=== PATIENT | female | born 1940 | race Caucasian/White ===

== ENCOUNTER 2017-10-08 14:23 | Inpatient (IN) | payer OTHER, MEDICARE ==
[2017-10-08] MEDS ORDERED: SALINE 1 500ML.BAG with HEPARIN SODIUM,PORCINE/NS/PF 1,000 UNIT IV ONE (16:24)
[2017-10-08] MEDS ORDERED: HEPARIN SODIUM,PORCINE 5,000 UNIT/ML 1 ML VIAL IV PRN (16:28)
[2017-10-08] MEDS ORDERED: HEPARIN SOD,PORK IN 0.45% NACL 25,000 UNIT in 0.45% NACL 1 500ML.BAG IV SCH (16:30)
--- NOTE | 2017-10-08 16:54 | P.GSCN ---
History of Present Illness Consult date: 10/08/17 Reason for Consult: Triple-vessel coronary artery disease, surgical recommendations. Requesting physician: Marc Cox History of present illness: This is a 77-year-old female patient who follows with a physician in [place] where she spends most of her year. She has a previous medical history of hypertension, hypothyroid, hyperlipidemia which she has managed with diet only, and family history of coronary artery disease. She is here visiting from [place] and has developed increased lower extremity edema over the previous week , chest heaviness and shortness of breath with exertion which does stop at rest. Her chest heaviness does not radiate and she has no other associated symptoms. When she looks back at it, she says this has probably been going on for the last couple of months but has gotten slightly worse over the last week or so. She presented to the emergency room at [facility] for evaluation and treatment. She was found to be hypertensive. Due to her symptoms, she was recommended to undergo heart catheterization which demonstrated triple-vessel coronary artery disease, although heart catheterization films are not available to us at this time. She was transferred to [facility] for evaluation to determine options of stenting versus surgical revascularization. Dr. Min from cardiothoracic surgery was consulted for surgical revascularization recommendations. Review of Systems review of systems was completed and was negative except as noted. - Cardiovascular Reports as per HPI, Reports chest pain, Reports decreased exercise tolerance, Reports dyspnea on exertion, Reports high blood pressure, Reports leg edema Past Medical History Past Medical History: Coronary Artery Disease (CAD), Chest Pain / Angina, Hyperlipidemia, Hypertension, Thyroid Disorder History of Any Multi-Drug Resistant Organisms: None Reported Past Surgical History: Bladder Surgery, Cholecystectomy, Hysterectomy, Tonsillectomy Additional Past Surgical History / Comment(s): bladder suspension Past Anesthesia/Blood Transfusion Reactions: No Reported Reaction Past Psychological History: No Psychological Hx Reported Smoking Status: Never smoker Past Alcohol Use History: None Reported Past Drug Use History: None Reported - Past Family History Father Family Medical History: Coronary Artery Disease (CAD) Medications and Allergies Allergies Allergy/AdvReac Type Severity Reaction Status Date / Time codeine AdvReac Vomiting Verified 10/08/17 16:24 Surgical - Exam - General well developed, well nourished, no distress, no pain - Eyes PERRL, normal ocular movement - ENT no hearing loss - Neck no masses, no bruits, trachea midline - Respiratory Lungs sounds clear bilaterally. Respirations even, nonlabored. Currently on 2 L nasal cannula with oxygen saturation 97%. No chest wall deformities. - Cardiovascular S1, S2 present. Regular rate and rhythm, sinus rhythm on telemetry. Palpable peripheral pulses bilaterally. 1-2+ bilateral lower extremity edema present. No calf pain or tenderness noted. Positive varicosities noted to bilateral lower extremity. - Abdomen Abdomen: soft, non tender, bowel sounds - Genitourinary deferred - Rectum deferred - Integumentary no rash, no growths - Neurologic normal coordination, normal sensation - Psychiatric oriented to time, oriented to person, oriented to place, speech is normal, memory intact Assessment and Plan (1) Hypertension Current Visit: Yes Status: Chronic Code(s): I10 - ESSENTIAL (PRIMARY) HYPERTENSION SNOMED Code(s): 26285110 (2) Hyperlipidemia Current Visit: Yes Status: Chronic Code(s): E78.5 - HYPERLIPIDEMIA, UNSPECIFIED SNOMED Code(s): 98505696 (3) Hypothyroid Current Visit: Yes Status: Chronic Code(s): E03.9 - HYPOTHYROIDISM, UNSPECIFIED SNOMED Code(s): 28076841 (4) Coronary artery disease Current Visit: Yes Status: Chronic Code(s): I25.10 - ATHSCL HEART DISEASE OF [place] CORONARY ARTERY W/O ANG PCTRS SNOMED Code(s): 06911820 (5) Family history of coronary artery disease Current Visit: Yes Status: Chronic Code(s): Z82.49 - FAMILY HX OF ISCHEM HEART DIS AND OTH DIS OF THE CIRC SYS SNOMED Code(s): 073944218 Plan: The patient was seen and examined on arrival from [facility] to the extended stay unit. Chart/diagnostics were reviewed with Dr. Min. The patient is currently in no distress, denies pain, shortness of breath. Preoperative teaching was initiated with the patient. Preoperative testing was ordered. She does state that she does not plan to stay in [place] past October, and she will be driving back to [place]. At this time we would recommend continuing aspirin, and beta rory therapy, adding statin, and trying to obtain better blood pressure control. Our plan is for coronary artery bypass grafting on October 10, pending the outcome of preoperative testing. This was discussed in detail with the patient and family, and they are in agreement. Dr. Cox was contacted by Dr. Min and is in agreement with this plan as well. Thank you Dr. Cox for this consult. We look forward to working to the care of your patient. Time with Patient: Greater than 30
[2017-10-08] MEDS ORDERED: MD COMMUNICATION TO PHARMACY 1 EACH MISC PO ONE ×2 (17:53)
[2017-10-08] MEDS ORDERED: amLODIPine 5 MG TAB PO STA (18:14)
[2017-10-08] MEDS ORDERED: HYDROcodone/APAP 5-325MG 1 EACH TAB PO PRN ×2 (20:14)
[2017-10-08] MEDS ORDERED: ONDANSETRON 4 MG/2 ML VIAL IVP PRN (20:17)
[2017-10-08 20:23] LABS: Appearance,Urine Clear (Clear); Bilirubin,Urine Negative (Negative); Blood,Urine Negative (Negative); Color,Urine Light Yellow; Glucose,Urine (UA) Negative (Negative); Ketones,Urine 1+ (Negative); Leukocyte Esterase,Urine Negative (Negative); Nitrite,Urine Negative (Negative); Protein,Urine Negative (Negative); Specific Gravity,Urine 1.032 (1.001-1.035); Urobilinogen,Urine <2.0 mg/dL (<2.0)
[2017-10-08] MEDS ORDERED: ATROPINE SULFATE 0.1 MG/ML 10ML SYRINGE ONE (20:42)
[2017-10-08] MEDS ORDERED: MUPIROCIN 2% OINT 22 GM TUBE TOPICAL SCH (22:00)
[2017-10-08] MEDS: ATORVASTATIN 40 MG TAB PO SCH (22:21)
[2017-10-08] MEDS: METOPROLOL TARTRATE 25 MG TAB PO SCH (22:21)
[2017-10-09] MEDS: 0.45% NACL 1 500ML.BAG with HEPARIN SOD,PORK IN 0.45% NACL 25,000 UNIT IV SCH ×2 (04:39→21:23)
[2017-10-09] MEDS ORDERED: CHLORHEXIDINE GLUCONATE 15 ML CUP MUCOUS MEM ONE (05:00)
[2017-10-09] MEDS: LEVOTHYROXINE 100 MCG TAB PO SCH (06:21)
[2017-10-09 06:47] LABS: Basophils % (A) 0 %; Eosinophils # (A) 0.1 k/uL (0-0.7); Eosinophils % (A) 1 %; HCT 39.6 % (34.0-46.0); HGB 13.1 gm/dL (11.4-16.0); Lymphocytes # (A) 1.4 k/uL (1.0-4.8); Lymphocytes % (A) 20 %; MCH 29.1 pg (25.0-35.0); MCHC 33.1 g/dL (31.0-37.0); MCV 87.7 fL (80.0-100.0); Mean Platelet Volume 6.5; Monocytes # (A) 0.4 k/uL (0-1.0); Monocytes % (A) 5 %; Neutrophils # (A) 4.9 k/uL (1.3-7.7); Neutrophils % (A) 72 %; Platelet Count 236 k/uL (150-450); RBC 4.52 m/uL (3.80-5.40); RDW 13.7 % (11.5-15.5); WBC 6.9 k/uL (3.8-10.6)
[2017-10-09 06:53] LABS: Partial Thromboplastin Time 31.3 sec (22.0-30.0); Prothrombin Time 10.1 sec (9.0-12.0)
[2017-10-09 07:33] LABS: Albumin 3.6 g/dL (3.5-5.0); Calcium 8.9 mg/dL (8.4-10.2); Magnesium 1.9 mg/dL (1.6-2.3); Potassium 4.1 mmol/L (3.5-5.1); Total Bilirubin 0.6 mg/dL (0.2-1.3)
[2017-10-09] MEDS: METOPROLOL TARTRATE 25 MG TAB PO SCH ×2 (08:29→21:42)
[2017-10-09] MEDS: DILTIAZEM CD 180 MG CAP.ER.24H PO SCH (08:29)
[2017-10-09 08:49] LABS: T4, Free (Free Thyroxine) 1.73 ng/dL (0.78-2.19)
[2017-10-09] MEDS ORDERED: ASPIRIN 325 MG TAB PO SCH (09:00)
--- NOTE | 2017-10-09 10:38 | P.CNPUL ---
History of Present Illness Consult date: 10/09/17 Requesting physician: Laisha Min Reason for consult: other (Ventilator/critical care management) Chief complaint: Chest pain, dyspnea on exertion History of present illness: This is a very pleasant 77-year-old female patient who resides most of the year in [facility] and follows with primary care physician there. She has a history of hyperlipidemia, hypertension, hypothyroidism, family history of coronary artery disease. She is a lifelong nonsmoker. No history of asthma. Has not been seen by a cleaning maid in the past. She had presented to [facility] with complaints of anterior chest wall discomfort and heaviness. She also was noting increased dyspnea on minimal exertion. She was quite hypertensive. Chest x-ray showed no acute pulmonary process. CT angiogram ruled out pulmonary embolism and there was some question of mild fibrotic changes. Serial troponins were negative. EKG did not show any acute ST or T wave abnormalities. There was a noted right bundle branch block. She had undergone cardiac catheterization that revealed triple-vessel disease and she was transferred here for further evaluation and treatment. She may be undergoing coronary artery bypass grafting. She is seen today in consultation on the selective care unit. She is awake and alert in no acute distress. She denies any current shortness of breath, cough or congestion. No chills or night sweats. No chest discomfort or palpitations. No lightheadedness or dizziness. She is maintaining good O2 saturations in the 90s on room air. She' s been afebrile. Hemodynamically stable. White count 6.9. Hemoglobin 13.1. Creatinine 0.76. She is currently on a heparin drip. Review of Systems Constitutional: Denies chills, Denies fever Eyes: denies blurred vision, denies decreased vision, denies pain Ears: deny: decreased hearing Ears, nose, mouth and throat: Denies headache, Denies sore throat Cardiovascular: Reports chest pain, Reports decreased exercise tolerance, Reports dyspnea on exertion, Reports high blood pressure Respiratory: Reports dyspnea Gastrointestinal: Denies abdominal pain, Denies diarrhea, Denies nausea, Denies vomiting Genitourinary: Denies dysuria, Denies hematuria Musculoskeletal: Denies myalgias Integumentary: Denies pruritus, Denies rash Neurological: Denies numbness, Denies weakness Psychiatric: Denies anxiety, Denies depression Endocrine: Denies fatigue, Denies weight change Hematologic/Lymphatic: Reports as per HPI Allergic/Immunologic: Reports as per HPI Past Medical History Past Medical History: Coronary Artery Disease (CAD), Chest Pain / Angina, Hyperlipidemia, Hypertension, Thyroid Disorder Additional Past Medical History / Comment(s): manages cholesterol by diet. hx ulcers 25 years ago(no sx),cataracts, hx fall from horse-sustained art clavical break(sx-has plate/screws) and a fx vertebra -not sure which one.FRUCTOSE INTOLERANCE- CAUSES INSTANT DIARRHEA. , History of Any Multi-Drug Resistant Organisms: None Reported Past Surgical History: Bladder Surgery, Cholecystectomy, Heart Catheterization, Hysterectomy, Tonsillectomy Additional Past Surgical History / Comment(s): bladder suspension, SX TO REPAIR RT CLAVICAL BREAK-HAS PLATE AND SCREWS Past Anesthesia/Blood Transfusion Reactions: No Reported Reaction Smoking Status: Never smoker - Past Family History Father Family Medical History: Coronary Artery Disease (CAD) Mother Family Medical History: Unable to Obtain Additional Family Medical History / Comment(s): PT WAS ADOPTED-ALL SHE KNOWS IS THAT HER MOM AT AGE 99 Medications and Allergies Home Medications Medication Instructions Recorded Confirmed Type Citrucel Tab 1 tab PO DAILY 10/08/17 10/08/17 History Diltiazem HCl [Cartia Xt] 180 mg PO DAILY 10/08/17 10/08/17 History Ipratropium Baldwin [Ipratropium 2 sprays EA NOSTRIL BID PRN 10/08/17 10/08/17 History Baldwin 0.03%] Levothyroxine Sodium [Synthroid] 200 mcg PO DAILY 10/08/17 10/08/17 History Losartan Potassium 100 mg PO DAILY 10/08/17 10/08/17 History Allergies Allergy/AdvReac Type Severity Reaction Status Date / Time codeine AdvReac Vomiting Verified 10/08/17 19:37 Physical Exam Vitals: Vital Signs Temp Pulse Resp BP BP BP Pulse Ox 10/09/17 08:00 79 16 106/62 97 10/09/17 04:00 98.6 F 78 16 144/70 92 L 10/09/17 01:30 68 16 124/58 96 10/09/17 00:30 67 16 127/60 93 L 10/09/17 00:00 67 16 121/60 94 L 07/17/18 23:30 67 18 121/60 94 L 10/08/17 23:00 73 18 125/60 88 L 10/08/17 22:30 75 18 122/61 92 L 10/08/17 22:15 74 18 120/59 91 L 10/08/17 22:00 75 18 124/65 95 10/08/17 21:45 70 18 124/61 94 L 10/08/17 21:33 70 18 141/67 10/08/17 21:28 71 18 145/63 10/08/17 21:24 69 18 132/72 10/08/17 21:17 72 147/76 10/08/17 21:16 68 18 126/74 10/08/17 21:14 75 127/74 10/08/17 21:13 65 18 116/71 10/08/17 21:10 70 155/59 10/08/17 21:00 80 151/70 169/78 10/08/17 20:00 75 18 126/60 92 L 10/08/17 18:45 97.5 F L 75 18 139/77 97 10/08/17 18:30 18 157/76 10/08/17 17:30 18 142/71 10/08/17 17:00 18 192/83 10/08/17 16:30 20 152/92 10/08/17 16:00 20 158/79 10/08/17 15:45 18 165/72 10/08/17 15:30 20 189/84 Intake and Output 10/08/1718 10/09/17 22:59 06:59 14:59 Intake Total 400 120 Output Total 200 Balance 200 120 Intake: IV 400 0.9 400 Oral 120 Output: Urine 200 Other: Voiding Method Bedpan # Voids 3 1 Weight 72 kg 70 kg - Constitutional General appearance: no acute distress - EENT Eyes: EOMI ENT: hearing grossly normal Ears: bilateral: normal - Neck Neck: normal ROM Carotids: bilateral: upstroke normal Thyroid: bilateral: normal size - Respiratory Respiratory: bilateral: CTA - Cardiovascular Rhythm: regular Heart sounds: normal: S1, S2 - Gastrointestinal General gastrointestinal: no organomegaly, soft, no tenderness - Neurologic Neurologic: CNII-XII intact - Musculoskeletal Musculoskeletal: gait normal - Psychiatric Psychiatric: A&O x's 3, appropriate affect, intact judgment & insight Results - Laboratory Findings CBC and BMP: 10/09/17 06:16 10/09/17 06:16 PT/INR, D-dimer PT 10.1 sec (9.0-12.0) 10/09/17 06:16 INR 1.0 (<1.2) 10/09/17 06:16 Abnormal lab findings: Abnormal Labs 10/08/17 10/09/17 10/09/17 20:08 06:16 06:16 APTT 31.3 H Glucose 145 H Total Protein 6.0 L LDL Cholesterol, Calc 107 H TSH 0.069 L Urine Ketones 1+ H - Diagnostic Findings Chest x-ray: report reviewed CT scan - chest: report reviewed Assessment and Plan Assessment: Impression: #1 Coronary artery disease with pending intervention. #2 Hypertension. #3 Hyperlipidemia. #4 Hypothyroidism. Plan: The patient was seen and evaluated by Dr. Aguirre. Chest x-ray and CT angiogram reports reviewed from [facility]. No acute pulmonary process. The patient is a lifelong nonsmoker. FEV1 value pending but expected to be acceptable for surgical intervention. We will continue to follow and make further recommendations based on her clinical status. I, the cosigning physician, performed a history & physical examination of the patient. Lungs sounds are clear. Maintaining good O2 saturations in the 90s on room air. I discussed the assessment and plan of care with my nurse practitioner, Brandy Matamoros. I attest to the above note as dictated by her. Time with Patient: Greater than 30
--- NOTE | 2017-10-09 11:03 | P.PN ---
Subjective Progress Note Date: 10/09/17 Principal diagnosis: Triple-vessel coronary artery disease. Previous medical history of hypertension , hypothyroid, hyperlipidemia, and family history of coronary artery disease. Patient is currently sitting up in bed in no acute distress. Denies chest pain or shortness of breath. Has been able to ambulate in the hallway. Awaiting the rest of her preoperative testing. Objective - Vital Signs Vital signs: Vital Signs Temp 98.6 F 10/09/17 04:00 Pulse 79 10/09/17 08:00 Resp 16 10/09/17 08:00 BP 106/62 10/09/17 08:00 Pulse Ox 97 10/09/17 08:00 Intake & Output 10/08/17 10/09/17 10/09/17 18:59 06:59 18:59 Intake Total 400 120 Output Total 200 Balance -200 400 120 Weight 72 kg 70 kg Intake: IV 400 0.9 400 Oral 120 Output: Urine 200 Other: Voiding Method Bedpan # Voids 3 1 - Constitutional General appearance: Present: cooperative, no acute distress - Respiratory Details: Lungs sounds clear bilaterally. Respirations even, nonlabored. Currently on 2 L nasal cannula with oxygen saturation 97%. - Cardiovascular Details: S1, S2 present. Regular rate and rhythm, sinus rhythm on telemetry. Palpable peripheral pulses bilaterally. 1-2+ bilateral lower extremity edema present. No calf pain or tenderness noted. - Gastrointestinal Gastrointestinal Comment(s): Abdomen soft, nontender, nondistended. Active bowel sounds 4 quadrants. Tolerating diet. - Genitourinary Genitourinary Comment(s): Continues to void clear, yellow urine. - Integumentary Integumentary Comment(s): Skin is warm and dry with evidence of good perfusion. - Neurologic Neurologic: Present: CNII-XII intact - Musculoskeletal Musculoskeletal: Present: gait normal, strength equal bilaterally - Psychiatric Psychiatric: Present: A&O x's 3, appropriate affect, intact judgment & insight - Allied health notes Allied health notes reviewed: nursing - Labs CBC & Chem 7: 10/09/17 06:16 10/09/17 06:16 Labs: Abnormal Lab Results - Last 24 Hours (Table) 10/08/17 10/09/17 10/09/17 Range/Units 20:08 06:16 06:16 APTT 31.3 H (22.0-30.0) sec Glucose 145 H (74-99) mg/dL Total Protein 6.0 L (6.3-8.2) g/dL LDL Cholesterol, Calc 107 H (0-99) mg/dL TSH 0.069 L (0.465-4.680) mIU/L Urine Ketones 1+ H (Negative) Microbiology - Last 24 Hours (Table) 10/08/17 20:08 Urine Culture - Preliminary Urine,Voided Assessment and Plan (1) Hypertension Current Visit: Yes Status: Chronic Code(s): I10 - ESSENTIAL (PRIMARY) HYPERTENSION SNOMED Code(s): 90261489 (2) Hyperlipidemia Current Visit: Yes Status: Chronic Code(s): E78.5 - HYPERLIPIDEMIA, UNSPECIFIED SNOMED Code(s): 91832199 (3) Hypothyroid Current Visit: Yes Status: Chronic Code(s): E03.9 - HYPOTHYROIDISM, UNSPECIFIED SNOMED Code(s): 10307701 (4) Coronary artery disease Current Visit: Yes Status: Chronic Code(s): I25.10 - ATHSCL HEART DISEASE OF [place] CORONARY ARTERY W/O ANG PCTRS SNOMED Code(s): 79669437 (5) Family history of coronary artery disease Current Visit: Yes Status: Chronic Code(s): Z82.49 - FAMILY HX OF ISCHEM HEART DIS AND OTH DIS OF THE CIRC SYS SNOMED Code(s): 102626843 Plan: 1. Continue aspirin, statin, beta rory therapy. 2. Continue heparin drip. Discontinued tomorrow morning phonograph needle tip maker to the OR. 3. Plan is for coronary artery bypass grafting with left internal mammary artery and endoscopic vein harvesting, intraoperative transesophageal echocardiogram, epi-aortic scanning, and intraoperative clinical graft flow measurement tomorrow morning , October 10. 4. Patient should be nothing by mouth after midnight. She should have her aspirin, beta rory, and statin prior to surgery tomorrow morning. 5. STS risk score was calculated and discussed with the patient. 6. Encourage incentive spirometry use. 7. More recommendations to follow. Time with Patient: Greater than 30
--- NOTE | 2017-10-09 12:33 | XR ---
EXAMINATION TYPE: XR chest 2V DATE OF EXAM: 10/09/2017 COMPARISON: NONE HISTORY: Shortness of breath TECHNIQUE: Frontal and lateral views of the chest are obtained. FINDINGS: Scattered senescent parenchymal changes noted. Hyperinflation compatible with COPD. No evidence for infiltrate. No evidence for atelectasis. Heart size is stable. Mediastinal structures are stable and grossly unremarkable. No evidence for hilar prominence. Degenerative changes dorsal spine. IMPRESSION: 1. No evidence for acute pulmonary disease.
[2017-10-09 12:44] LABS: Hemoglobin A1C 5.6 % (4.0-6.0)
[2017-10-09 12:55] LABS: Hepatitis A Antibody IgM Non-Reactive (Non-Reactive); Hepatitis B Core IgM Non-Reactive (Non-Reactive)
--- NOTE | 2017-10-09 15:17 | US ---
EXAMINATION TYPE: US carotid duplex BILAT DATE OF EXAM: 10/09/2017 COMPARISON: NONE CLINICAL HISTORY: preop cardiac surgery. EXAM MEASUREMENTS: RIGHT: Peak Systolic Velocity (PSV) cm/sec ----- Right CCA: 59.8 ----- Right ICA: 79.1 ----- Right ECA: 188.0 ICA/CCA ratio: 1.3 RIGHT: End Diastole cm/sec ----- Right CCA: 13.6 ----- Right ICA: 27.7 ----- Right ECA: 6.8 LEFT: Peak Systolic Velocity (PSV) cm/sec ----- Left CCA: 76.4 ----- Left ICA: 105.0 ----- Left ECA: 106.7 ICA/CCA ratio: 1.4 LEFT: End Diastole cm/sec ----- Left CCA: 18.1 ----- Left ICA: 34.7 ----- Left ECA: 10.1 VERTEBRALS (direction of flow): Right Vertebral: Antegrade Left Vertebral: Antegrade Rhythm: Normal IMPRESSION: Mild atherosclerotic plaque, elevated right ECA velocity, no other significant velocity e levations. Criteria for Assigning % of Stenosis / Diameter reduction (Estimation based on the indirect measurements of the internal carotid artery velocities (ICA PSV). 1. Normal (no stenosis)=ICA PSV < 125 cm/s: ratio < 2.0: ICA EDV<40 cm/s. 2. Less than 50% stenosis=ICA PSV < 125 cm/s: ratio < 2.0: ICA EDV<40 cm/s. 3. 50 to 69% stenosis=ICA PSV of 125 to 230 cm/s: ration 2.0 ? 4.0: ICA EDV 40-100 cm/s. 4. Greater than 70% stenosis to near occlusion= ICA PSV > 230 cm/s: ratio > 4.0: ICA EDV > 100 cm/s. 5. Near occlusion= ICA PSV velocities may be low or undetectable: variable ratio and ICA EDV. 6. Total occlusion=unable to detect flow.
--- NOTE | 2017-10-09 15:22 | P.PN ---
Subjective Progress Note Date: 10/09/17 This is a pleasant 77-year-old female patient who follows her physician in [place] where she spends most of her year. She has a history of hypertension, hypothyroidism, hyperlipidemia and family history of CAD. She has been up here visiting since July and has developed increased lower extremity edema as well as chest heaviness and shortness of breath with exertion. She presented to the emergency room at [facility] for evaluation and treatment. She was found to be quite hypertensive. She underwent cardiac catheterization there which showed triple-vessel coronary artery disease and was subsequently transferred here to [facility] for evaluation to determine options of stenting versus surgical revascularization. She is scheduled to undergo coronary artery bypass grafting tomorrow with Dr. Min. Chest x-ray this morning showed no evidence for acute pulmonary disease. Return evaluation showed a normal CBC, elevated glucose, LDL 107 and TSH of 0.069 with a normal free T4. She is currently on aspirin, Lipitor, IV heparin, levothyroxine 200 g daily, metoprolol tartrate. Upon examination, patient is resting comfortably in bed. She is quite anxious as her is currently still in [place] and may not make it prior to her surgery. Otherwise she's feeling fairly well. Objective - Vital Signs Vital signs: Vital Signs Temp 98.6 F 10/09/17 04:00 Pulse 77 10/09/17 12:00 Resp 16 10/09/17 12:00 BP 144/70 10/09/17 12:00 Pulse Ox 97 10/09/17 12:00 Intake & Output 10/08/17 10/09/17 10/09/17 18:59 06:59 18:59 Intake Total 400 360 Output Total 200 Balance -200 400 360 Weight 72 kg 70 kg Intake: IV 400 0.9 400 Oral 360 Output: Urine 200 Other: Voiding Method Bedpan Bedpan # Voids 3 1 - Exam PHYSICAL EXAMINATION: HEENT: Head is atraumatic, normocephalic. Pupils equal, round. Neck is supple. There is no elevated jugular venous pressure. HEART EXAMINATION: Heart sounds regular, S1 and S2 normal. No murmur or gallop heard. CHEST EXAMINATION: Lungs are clear to auscultation and precussion. No chest wall tenderness is noted on palpation or with deep breathing. ABDOMEN: Soft, nontender. Bowel sounds are heard. No organomegaly noted. EXTREMITIES: 2+ peripheral pulses with no evidence of peripheral edema and no calf tenderness noted. Right femoral puncture site soft without ecchymosis or hematoma.. NEUROLOGIC patient is awake, alert and oriented x3. . - Labs CBC & Chem 7: 10/09/17 06:16 10/09/17 06:16 Labs: Abnormal Lab Results - Last 24 Hours (Table) 10/08/17 10/09/17 10/09/17 Range/Units 20:08 06:16 06:16 APTT 31.3 H (22.0-30.0) sec Glucose 145 H (74-99) mg/dL Total Protein 6.0 L (6.3-8.2) g/dL LDL Cholesterol, Calc 107 H (0-99) mg/dL TSH 0.069 L (0.465-4.680) mIU/L Urine Ketones 1+ H (Negative) Crossmatch 10/09/17 Range/Units 06:16 APTT (22.0-30.0) sec Glucose (74-99) mg/dL Total Protein (6.3-8.2) g/dL LDL Cholesterol, Calc (0-99) mg/dL TSH (0.465-4.680) mIU/L Urine Ketones (Negative) Crossmatch See Detail Microbiology - Last 24 Hours (Table) 10/09/17 04:45 Nasal Screen MRSA/MSSA - Preliminary Nasal Swab 10/08/17 20:08 Urine Culture - Preliminary Urine,Voided Assessment and Plan Assessment: #1 triple-vessel coronary artery disease, awaiting CABG #2 hypertension #3 hypothyroidism Before situational anxiety Plan: From cardiology perspective, medications were reviewed and we will continue the same. We will continue to follow the patient perioperatively and provide further recommendations accordingly. GASTROENTEROLOGY PROFESSOR note has been reviewed, I agree with a documented findings and plan of care. Patient was seen and examined.
[2017-10-09] MEDS: MUPIROCIN 2% OINT 22 GM TUBE TOPICAL SCH ×2 (15:56→21:42)
[2017-10-09] MEDS ORDERED: NOREPINEPHRINE 4 MG in DEXTROSE 5% IN WATER 250 ML IV PRN ×2 (21:00)
[2017-10-09] MEDS: ATORVASTATIN 40 MG TAB PO SCH (21:42)
--- NOTE | 2017-10-09 23:29 | HP ---
HISTORY AND PHYSICAL [age]old white female sent over from [facility] for abnormal coronary angiogram showing multiple-vessel disease. Having bypass surgery tomorrow. She is nervous. I explained to her the procedure, risks, etc. Fourteen-point review of systems negative. PAST MEDICAL HISTORY: 1. Coronary artery disease. 2. Hypertension. 3. Hypothyroidism.. 4. Dyslipidemia. 5. Hypercholesterolemia. 6. History of clavicle break, plate, screws. 7. Fractured vertebrae. 8. Fructose intolerance. 9. Diarrhea. 10.Bladder surgery. 11.Cholecystectomy. 12.Heart catheterization. 13.Hysterectomy. 14.Tonsillectomy. FAMILY HISTORY: Coronary artery disease. HOME MEDICINES: 1. Cardia XL 180 daily. 2. Citrucel 1 daily. 3. Levothyroxine 200 mcg daily. 4. Losartan 100 mg daily. 5. Ipratropium bromide 2 sprays each nostril b.i.d. ALLERGIES: CODEINE. PHYSICAL EXAMINATION: VITAL SIGNS: Temperature 98.6, pulse 67, respiratory rate 16 to 18, blood pressure 106 to 140s over 60s, oxygen 93% to 97% on room air. CARDIOVASCULAR: S1, S2. LUNGS: Transmitted upper airway sounds. GI: Soft, non-tender. HEMATOLOGY: Negative Homans. PSYCH: Fair mood and affect. ASSESSMENT: 1. Hypothyroidism. 2. Coronary artery disease. 3. Pre-bypass. 4. Hypertension. 5. Dyslipidemia. 6. History of clavicle fracture. Prognosis is good. Explained to the patient recommendations. She is stable from medical standpoint for surgery. MMODL / IJN: [id number] /
[2017-10-10] MEDS ORDERED: PAPAVERINE 360 MG in SODIUM CHLORIDE 0.9% 90 ML IV PRN (05:00)
[2017-10-10] MEDS ORDERED: MANNITOL 25% 12.5 GM/50 ML VIAL IV PRN ×2 (05:00)
[2017-10-10] MEDS ORDERED: NITROGLYCERIN-D5W PMX 50 MG in DEXTROSE/WATER 1 250ML.BAG IV PRN (05:00)
[2017-10-10] MEDS ORDERED: DEXTROSE 5% IN WATER 1,000 ML with POTASSIUM CHLORIDE 110 MEQ, MAGNESIUM SULFATE 16 MEQ... IV PRN ×5 (05:00)
[2017-10-10] MEDS ORDERED: MAGNESIUM SULFATE SYG 4.06 MEQ/ML SYRINGE IV PRN (05:00)
[2017-10-10] MEDS ORDERED: METOPROLOL TARTRATE 12.5 MG TAB PO ONE (05:00)
[2017-10-10] MEDS ORDERED: CLEVIDIPINE BUTYRATE 25 MG in EMPTY BAG 1 BAG IV PRN (05:00)
[2017-10-10] MEDS ORDERED: NITROGLYCERIN-D5W PMX 25 MG/250 ML BTL IV PRN (05:00)
[2017-10-10] MEDS ORDERED: CALCIUM CHLORIDE 100 MG/ML 10 ML SYRINGE IVP PRN (05:00)
[2017-10-10] MEDS ORDERED: DEXTROSE 5% IN WATER 1,000 ML with POTASSIUM CHLORIDE 25 MEQ, SODIUM CHLORIDE 2.5MEQ/ML... IV PRN ×6 (05:00)
[2017-10-10] MEDS ORDERED: PHENYLEPHRINE 40 MG in SODIUM CHLORIDE 0.9% 250 ML IV PRN (05:00)
[2017-10-10] MEDS ORDERED: LACTATED RINGERS 1,000 ML IV PRN (05:00)
[2017-10-10] MEDS ORDERED: ALBUMIN HUMAN 25% 50 ML in EMPTY BAG 1 BAG IVPB PRN (05:00)
[2017-10-10] MEDS ORDERED: ALBUMIN HUMAN 5% 500 ML in EMPTY BAG 1 BAG IVPB PRN ×6 (05:00)
[2017-10-10] MEDS ORDERED: HEPARIN SODIUM 1,000 UN/ML (10ML VL) IV PRN (05:00)
[2017-10-10] MEDS ORDERED: TRANEXAMIC ACID 2,000 MG in SODIUM CHLORIDE 0.9% 180 ML IV PRN (05:00)
[2017-10-10] MEDS ORDERED: PROTAMINE SULFATE 10 MG/ML 25 ML VIAL IV PRN (05:00)
[2017-10-10] MEDS ORDERED: HEPARIN SODIUM,PORCINE 5,000 UNIT in SODIUM CHLORIDE 0.9% 500 ML IV PRN (05:00)
[2017-10-10] MEDS ORDERED: ceFAZolin 1,000 MG in SODIUM CHLORIDE 0.9% IRRIGATIO 1,000 ML IRRIGATION PRN (05:00)
[2017-10-10] MEDS ORDERED: INSULIN REGULAR 100 UNIT in SODIUM CHLORIDE 0.9% 100 ML IV PRN (05:00)
[2017-10-10] MEDS ORDERED: ASPIRIN 325 MG TAB PO ONE (05:00)
[2017-10-10] MEDS ORDERED: PROTAMINE SULFATE 250 MG in EMPTY BAG 1 BAG IV PRN (05:00)
[2017-10-10] MEDS ORDERED: PROPOFOL 1,000 MG in EMPTY BAG 1 BAG IV PRN (05:00)
[2017-10-10] MEDS ORDERED: ATORVASTATIN 10 MG TAB PO ONE (05:00)
[2017-10-10] MEDS ORDERED: ceFAZolin 3 GM in SODIUM CHLORIDE 0.9% 30 ML IVPB PRN (05:00)
[2017-10-10] MEDS ORDERED: SODIUM BICARB 8.4% 50 ML SYR (1 MEQ/ML) IV PRN (05:00)
[2017-10-10] MEDS ORDERED: PHENYLEPHRINE-0.9% NACL SYG 1 MG/10 ML SYRINGE IV PRN ×4 (05:00)
[2017-10-10] MEDS ORDERED: IV FLUID CONTINUATION 1,000 ML IV ONE (06:07)
[2017-10-10 06:27] LABS: HCT 42.4 % (34.0-46.0); HGB 13.9 gm/dL (11.4-16.0); MCH 28.9 pg (25.0-35.0); MCHC 32.8 g/dL (31.0-37.0); Mean Platelet Volume 6.5; Platelet Count 261 k/uL (150-450); RBC 4.82 m/uL (3.80-5.40); RDW 13.1 % (11.5-15.5); WBC 7.9 k/uL (3.8-10.6)
[2017-10-10 06:38] LABS: ALT 24 U/L (9-52); AST 22 U/L (14-36); Albumin 4.3 g/dL (3.5-5.0); Alkaline Phosphatase 84 U/L (38-126); Anion Gap 9 mmol/L; Blood Urea Nitrogen 14 mg/dL (7-17); Calcium 9.6 mg/dL (8.4-10.2); Carbon Dioxide 22 mmol/L (22-30); Chloride 112 mmol/L (98-107); Glucose 108 mg/dL (74-99); Potassium 4.4 mmol/L (3.5-5.1); Sodium 143 mmol/L (137-145); Total Bilirubin 0.6 mg/dL (0.2-1.3)
[2017-10-10] MEDS ORDERED: ELECTROLYTE-R (PH 7.4) 1,000 ML IV.SOLN IV ONE (08:11)
[2017-10-10] MEDS ORDERED: ALBUMIN HUMAN 5% 250 ML BOTTLE IVPB ONE (08:11)
[2017-10-10] MEDS ORDERED: VECURONIUM 10 MG VIAL IV ONE (08:11)
[2017-10-10] MEDS ORDERED: LIDOCAINE 2% SYG (PF) 100 MG/5 ML ONE (08:11)
[2017-10-10] MEDS ORDERED: PROTAMINE SULFATE 10 MG/ML 25 ML VIAL IV ONE (08:11)
[2017-10-10] MEDS ORDERED: MAGNESIUM SULFATE 4 MEQ/ML 2 ML VIAL ONE (08:11)
[2017-10-10] MEDS ORDERED: TRANEXAMIC ACID 1,000 MG/10 ML VIAL ONE (08:11)
[2017-10-10] MEDS ORDERED: SODIUM CHLORIDE 0.9% IRRIG 1,000 ML BTL IRRIGATION ONE (08:11)
[2017-10-10] MEDS ORDERED: fentaNYL (PF) 50 MCG/ML 50 ML VIAL ONE (08:11)
[2017-10-10] MEDS ORDERED: ceFAZolin 1,000 MG VIAL ONE (08:11)
[2017-10-10] MEDS ORDERED: PROPOFOL 10 MG/ML 20 ML VIAL IV ONE (08:11)
[2017-10-10] MEDS ORDERED: SODIUM CHLORIDE 0.9% 250 ML BAG ONE (08:11)
[2017-10-10] MEDS ORDERED: MIDAZOLAM 2 MG/2 ML VIAL ONE (08:11)
[2017-10-10] MEDS ORDERED: fentaNYL (PF) 50 MCG/ML 2 ML AMP ONE (08:11)
[2017-10-10] MEDS: ceFAZolin 2,000 MG in SODIUM CHLORIDE 0.9% 30 ML IVPB PRN ×2 (08:15→08:20)
[2017-10-10 08:44] LABS: ABG Base Excess -0.9 mmol/L; ABG HCO3 24 mmol/L (21-25); ABG Oxygen Saturation 99.9 % (94-97); ABG PCO2 41 mmHg (35-45); ABG PH 7.38 (7.35-7.45); ABG PO2 309 mmHg (83-108); ABG Potassium Whole Blood 3.9 mmol/L (3.4-4.5); ABG Sodium Whole Blood 142 mmol/L (135-146); ABG TCO2 25 mmol/L (19-24)
[2017-10-10 11:12] LABS: ABG Base Excess -1.7 mmol/L; ABG HCO3 24 mmol/L (21-25); ABG Oxygen Saturation 98.8 % (94-97); ABG PCO2 46 mmHg (35-45); ABG PH 7.33 (7.35-7.45); ABG PO2 129 mmHg (83-108); ABG Potassium Whole Blood 3.9 mmol/L (3.4-4.5); ABG Sodium Whole Blood 140 mmol/L (135-146); ABG TCO2 26 mmol/L (19-24)
[2017-10-10 11:46] LABS: ABG HCO3 25 mmol/L (21-25); ABG PCO2 35 mmHg (35-45); ABG Potassium Whole Blood 3.9 mmol/L (3.4-4.5); ABG Sodium Whole Blood 137 mmol/L (135-146)
[2017-10-10 12:16] LABS: ABG Base Excess 0.6 mmol/L; ABG HCO3 24 mmol/L (21-25); ABG PCO2 35 mmHg (35-45); ABG PH 7.45 (7.35-7.45); ABG PO2 392 mmHg (83-108); ABG Potassium Whole Blood 4.5 mmol/L (3.4-4.5); ABG Sodium Whole Blood 136 mmol/L (135-146); ABG TCO2 26 mmol/L (19-24)
[2017-10-10 12:48] LABS: ABG Base Excess -0.8 mmol/L; ABG HCO3 24 mmol/L (21-25); ABG PCO2 37 mmHg (35-45); ABG PH 7.42 (7.35-7.45); ABG PO2 370 mmHg (83-108); ABG Potassium Whole Blood 4.5 mmol/L (3.4-4.5); ABG Sodium Whole Blood 136 mmol/L (135-146); ABG TCO2 25 mmol/L (19-24)
[2017-10-10 13:14] LABS: ABG Base Excess -2.4 mmol/L; ABG HCO3 22 mmol/L (21-25); ABG PCO2 37 mmHg (35-45); ABG PH 7.39 (7.35-7.45); ABG Potassium Whole Blood 4.3 mmol/L (3.4-4.5); ABG Sodium Whole Blood 137 mmol/L (135-146); ABG TCO2 23 mmol/L (19-24)
[2017-10-10 14:04] LABS: ABG Base Excess -1.8 mmol/L; ABG HCO3 24 mmol/L (21-25); ABG Oxygen Saturation 98.1 % (94-97); ABG PCO2 44 mmHg (35-45); ABG PH 7.34 (7.35-7.45); ABG PO2 102 mmHg (83-108); ABG Potassium Whole Blood 3.4 mmol/L (3.4-4.5); ABG Sodium Whole Blood 142 mmol/L (135-146); ABG TCO2 25 mmol/L (19-24)
[2017-10-10 14:30] LABS: ABG Base Excess -1.3 mmol/L; ABG HCO3 24 mmol/L (21-25); ABG Oxygen Saturation 99.7 % (94-97); ABG PCO2 40 mmHg (35-45); ABG PH 7.38 (7.35-7.45); ABG PO2 241 mmHg (83-108); ABG Potassium Whole Blood 3.9 mmol/L (3.4-4.5); ABG Sodium Whole Blood 143 mmol/L (135-146); ABG TCO2 25 mmol/L (19-24)
[2017-10-10 14:50] LABS: ABG PCO2 30 mmHg (35-45); ABG PH 7.47 (7.35-7.45); ABG PO2 127 mmHg (83-108)
[2017-10-10 14:51] LABS: ABG Base Excess -0.9 mmol/L; ABG HCO3 22 mmol/L (21-25); ABG Potassium Whole Blood 4.4 mmol/L (3.4-4.5); ABG Sodium Whole Blood 167 mmol/L (135-146); ABG TCO2 23 mmol/L (19-24)
[2017-10-10 14:57] LABS: ABG PH 7.46 (7.35-7.45); ABG PO2 418 mmHg (83-108); ABG TCO2 26 mmol/L (19-24)
[2017-10-10 14:58] LABS: ABG Base Excess 0.9 mmol/L
[2017-10-10 15:01] LABS: ABG PO2 >420 mmHg (83-108)
[2017-10-10 15:30] LABS: Glucose,Whole Blood 113 mg/dL (75-99)
[2017-10-10] MEDS: PROPOFOL 1,000 MG in EMPTY BAG 1 BAG IV SCH ×2 (15:30→16:15)
[2017-10-10] MEDS ORDERED: Phosphorus Replacement Protoco 1 EACH MISC MISCELLANE PRN (15:32)
[2017-10-10] MEDS ORDERED: NITROGLYCERIN-D5W PMX 50 MG in DEXTROSE/WATER 1 250ML.BAG IV SCH (15:32)
[2017-10-10] MEDS ORDERED: DEXTROSE 5% IN WATER 100 ML with AMIODARONE 150 MG IV PRN (15:32)
[2017-10-10] MEDS ORDERED: Magnesium Replacement Protocol 1 EACH MISC MISCELLANE PRN (15:32)
[2017-10-10] MEDS ORDERED: ONDANSETRON 4 MG/2 ML VIAL IVP PRN (15:32)
[2017-10-10] MEDS ORDERED: BENZOCAINE/MENTHOL LOZENG 1 EACH LOZENGE MUCOUS MEM PRN (15:32)
[2017-10-10] MEDS ORDERED: CALCIUM CHLORIDE 1,000 MG in SODIUM CHLORIDE 0.9% 100 ML IV PRN (15:32)
[2017-10-10] MEDS ORDERED: IPRATROPIUM-ALBUTEROL 3 ML NEB INHALATION PRN (15:32)
[2017-10-10] MEDS ORDERED: Potassium Replacement Protocol 1 EACH MISC MISCELLANE PRN (15:32)
[2017-10-10] MEDS: LACTATED RINGERS 1,000 ML IV SCH (15:45)
[2017-10-10 15:49] LABS: ABG Base Excess -0.2 mmol/L; ABG HCO3 26 mmol/L (21-25); ABG Oxygen Saturation 99.8 % (94-97); ABG PCO2 49 mmHg (35-45); ABG PH 7.33 (7.35-7.45); ABG PO2 212 mmHg (83-108); ABG TCO2 27 mmol/L (19-24)
[2017-10-10 15:51] LABS: Ionized Calcium 4.3 mg/dL (4.5-5.3)
[2017-10-10 15:52] LABS: Basophils % (A) 0 %; Eosinophils % (A) 0 %; HCT 20.6 % (34.0-46.0); Lymphocytes # (A) 0.5 k/uL (1.0-4.8); Lymphocytes % (A) 17 %; MCH 29.3 pg (25.0-35.0); MCV 86.3 fL (80.0-100.0); Mean Platelet Volume 7.6; Monocytes # (A) 0.1 k/uL (0-1.0); Monocytes % (A) 5 %; Neutrophils # (A) 2.4 k/uL (1.3-7.7); Neutrophils % (A) 78 %; RBC 2.38 m/uL (3.80-5.40)
--- NOTE | 2017-10-10 15:57 | XR ---
EXAMINATION TYPE: XR chest 1V portable DATE OF EXAM: 10/10/2017 COMPARISON: 10/09/2017 HISTORY: Status post cardiac surgery. TECHNIQUE: Single frontal view of the chest is obtained. FINDINGS: There are new bilateral thoracostomy tubes with no residual pneumothorax identified. New S wan-Thaddeus catheter from a right internal jugular approach has its distal tip in the region of the pulm onary outflow tract, properly placed. Endotracheal tube appears slightly low in position approaching the right mainstem bronchus. Recommendation is for retraction approximately 2 cm. Post CABG changes a re seen of the chest. Enteric tube has its fenestrated portion beyond the gastroesophageal junction, appropriately placed. Mediastinal drain is noted. Epicardial pacing wires also seen. No new focal con solidation or pleural effusion. Unchanged right-sided clavicular fixation plate. Cardiac silhouette i s stable from the prior. IMPRESSION: Newly placed lines and tubes as described above and postsurgical changes with caudal benjamin cement of the endotracheal tube. Recommend retraction of 2 cm.
[2017-10-10 15:59] LABS: Glucose,Whole Blood 92 mg/dL (75-99)
[2017-10-10] MEDS: CLEVIDIPINE BUTYRATE 25 MG in EMPTY BAG 1 BAG IV SCH ×2 (16:00→21:03)
--- NOTE | 2017-10-10 16:01 | P.PN ---
Subjective Progress Note Date: 10/10/17 Principal diagnosis: Coronary artery disease This is a very pleasant 77-year-old female patient who resides most of the year in [facility] and follows with primary care physician there. She has a history of hyperlipidemia, hypertension, hypothyroidism, family history of coronary artery disease. She is a lifelong nonsmoker. No history of asthma. Has not been seen by a director of leadership development in the past. She had presented to [facility] with complaints of anterior chest wall discomfort and heaviness. She also was noting increased dyspnea on minimal exertion. She was quite hypertensive. Chest x-ray showed no acute pulmonary process. CT angiogram ruled out pulmonary embolism and there was some question of mild fibrotic changes. Serial troponins were negative. EKG did not show any acute ST or T wave abnormalities. There was a noted right bundle branch block. She had undergone cardiac catheterization that revealed triple-vessel disease and she was transferred here for further evaluation and treatment. She may be undergoing coronary artery bypass grafting. She is seen today in consultation on the selective care unit. She is awake and alert in no acute distress. She denies any current shortness of breath, cough or congestion. No chills or night sweats. No chest discomfort or palpitations. No lightheadedness or dizziness. She is maintaining good O2 saturations in the 90s on room air. She' s been afebrile. Hemodynamically stable. White count 6.9. Hemoglobin 13.1. Creatinine 0.76. She is currently on a heparin drip. The patient was seen again today 10/10/2017 in the immediate postoperative setting in the intensive care unit. She had undergone a NELSON to the LAD, saphenous vein graft to the OM, saphenous vein graft to the RCA. She is currently intubated and on mechanical ventilator at settings of SIMV of 12, tidal volume 350, 100% FiO2 and a PEEP of 5. Arterial blood gases reveal a P O2 of 212, pCO2 49, pH 7.32. Adjustments will be made. Chest x-ray was reviewed. Right, left, mediastinal chest tubes in place. Currently has a lactated Ringer's at 50 MLS per hour, nitroglycerin drip at 5 mcg/m, propofol at 10 mcg/kg/m, clevidipine at 2 mg per hour. Urine output is adequate. PA pressures 36/20 with a mean of 27. Objective - Vital Signs Vital signs: Vital Signs Temp 98.8 F 10/10/17 06:18 Pulse 83 10/10/17 06:18 Resp 18 10/10/17 06:18 BP 202/91 10/10/17 06:18 Pulse Ox 97 10/10/17 06:18 Intake & Output 10/09/17 10/10/17 10/10/17 18:59 06:59 18:59 Intake Total 360 1300 33 Output Total 2950 Balance 360 1300 -2917 Weight 70.5 kg Intake: IV 700 33 Oral 360 600 Output: Urine 1950 Estimated Blood Loss 1000 Other: Voiding Method Bedpan Toilet # Voids 1 2 - Exam GENERAL EXAM: Intubated, sedated. HEAD: Normocephalic. EYES: Sluggish reaction of pupils, equal size. NOSE: Clear with pink turbinates. THROAT: Oral endotracheal and gastric tube in place. No erythema or exudates. NECK: Right IJ [place]-Thaddeus placed. No masses, no JVD. CHEST: Sternal dressing is dry and intact. Mediastinal, right and left pleural chest tubes are in place. LUNGS: Equal air entry with few scattered rhonchi. CVS: S1 and S2 normal with no audible murmur, regular rhythm. ABDOMEN: Soft. SPINE: No scoliosis or deformity SKIN: No rashes CENTRAL NERVOUS SYSTEM: Sedated. EXTREMITIES: There is no peripheral edema. No clubbing, no cyanosis. Peripheral pulses are intact. - Labs CBC & Chem 7: 10/10/17 05:44 10/10/17 05:44 Labs: Abnormal Lab Results - Last 24 Hours (Table) 10/09/17 10/10/17 10/10/17 Range/Units 06:16 05:44 08:45 ABG pH (7.35-7.45) ABG pCO2 (35-45) mmHg ABG pO2 309 H (83-108) mmHg ABG Total CO2 25 H (19-24) mmol/L ABG O2 Saturation 99.9 H (94-97) % ABG Hematocrit (34.0-46.0) % ABG Sodium (135-146) mmol/L ABG Ionized Calcium (4.5-5.3) mg/dL ABG Glucose 115 H (75-99) mg/dL ABG Lactic Acid (0.5-1.6) mmol/L Hemoglobin (11.4-16.0) gm/dL Chloride 112 H (98-107) mmol/L Glucose 108 H (74-99) mg/dL POC Glucose (mg/dL) (75-99) mg/dL Arterial Blood Glucose 115 H (75-99) mg/dL Crossmatch See Detail 10/10/17 10/10/17 10/10/17 Range/Units 11:12 11:14 12:17 ABG pH 7.47 H 7.33 L (7.35-7.45) ABG pCO2 30 L 46 H (35-45) mmHg ABG pO2 127 H 129 H 392 H (83-108) mmHg ABG Total CO2 26 H 26 H (19-24) mmol/L ABG O2 Saturation 100.0 H 98.8 H 100.0 H (94-97) % ABG Hematocrit 24 L (34.0-46.0) % ABG Sodium 167 H* (135-146) mmol/L ABG Ionized Calcium 4.0 L (4.5-5.3) mg/dL ABG Glucose 133 H 134 H 200 H (75-99) mg/dL ABG Lactic Acid 2.0 H (0.5-1.6) mmol/L Hemoglobin 11.3 L 7.7 L (11.4-16.0) gm/dL Chloride (98-107) mmol/L Glucose (74-99) mg/dL POC Glucose (mg/dL) (75-99) mg/dL Arterial Blood Glucose 133 H 134 H 200 H (75-99) mg/dL Crossmatch 10/10/17 10/10/17 10/10/17 Range/Units 12:49 13:16 14:32 ABG pH 7.34 L (7.35-7.45) ABG pCO2 (35-45) mmHg ABG pO2 370 H >420 H (83-108) mmHg ABG Total CO2 25 H 25 H (19-24) mmol/L ABG O2 Saturation 100.0 H 100.0 H 98.1 H (94-97) % ABG Hematocrit 23 L 22 L 22 L (34.0-46.0) % ABG Sodium (135-146) mmol/L ABG Ionized Calcium 4.0 L 4.2 L 3.8 L (4.5-5.3) mg/dL ABG Glucose 238 H 196 H 159 H (75-99) mg/dL ABG Lactic Acid 2.9 H* 4.2 H* 4.1 H* (0.5-1.6) mmol/L Hemoglobin 7.4 L 7.2 L 7.2 L (11.4-16.0) gm/dL Chloride (98-107) mmol/L Glucose (74-99) mg/dL POC Glucose (mg/dL) (75-99) mg/dL Arterial Blood Glucose 238 H 196 H 159 H (75-99) mg/dL Crossmatch 10/10/17 10/10/17 Range/Units 14:32 15:28 ABG pH (7.35-7.45) ABG pCO2 (35-45) mmHg ABG pO2 241 H (83-108) mmHg ABG Total CO2 25 H (19-24) mmol/L ABG O2 Saturation 99.7 H (94-97) % ABG Hematocrit 21 L (34.0-46.0) % ABG Sodium (135-146) mmol/L ABG Ionized Calcium 3.7 L (4.5-5.3) mg/dL ABG Glucose 130 H (75-99) mg/dL ABG Lactic Acid 3.6 H* (0.5-1.6) mmol/L Hemoglobin 6.8 L* (11.4-16.0) gm/dL Chloride (98-107) mmol/L Glucose (74-99) mg/dL POC Glucose (mg/dL) 113 H (75-99) mg/dL Arterial Blood Glucose 130 H (75-99) mg/dL Crossmatch Microbiology - Last 24 Hours (Table) 10/09/17 04:45 Nasal Screen MRSA/MSSA - Final Nasal Swab 10/08/17 20:08 Urine Culture - Final Urine,Voided Assessment and Plan Assessment: Impression: #1 Coronary artery disease, status post coronary artery bypass grafting utilizing a NELSON to the LAD, saphenous vein grafts to the OM and RCA. Postoperative day #0. #2 Hypertension. #3 Hyperlipidemia. #4 Hypothyroidism. Plan: The patient was seen and evaluated by Dr. Aguirre. Chest x-ray and ABGs were reviewed. Vent adjustments were made. The plan is to extubate within the 6 hour protocol. Continue bronchodilators, antibiotics. Heparin for DVT prophylaxis. Protonix for GI prophylaxis. We will continue to follow and make further recommendations based on her clinical status. Critical care time 38 minutes. I, the cosigning physician, performed a history & physical examination of the patient. Lungs sounds with few scattered rhonchi. Maintaining good O2 saturations in the 90s on 50% FiO2 per mechanical ventilator. I discussed the assessment and plan of care with my nurse practitioner, Brandy Matamoros. I attest to the above note as dictated by her.
[2017-10-10] MEDS: IPRATROPIUM-ALBUTEROL 3 ML NEB INHALATION SCH ×3 (16:03→19:46)
[2017-10-10 16:06] LABS: INR 1.3 (<1.2); Partial Thromboplastin Time 37.4 sec (22.0-30.0); Prothrombin Time 12.1 sec (9.0-12.0)
[2017-10-10 16:29] LABS: ALT 35 U/L (9-52); AST 44 U/L (14-36); Albumin 3.4 g/dL (3.5-5.0); Alkaline Phosphatase 26 U/L (38-126); Anion Gap 10 mmol/L; Blood Urea Nitrogen 9 mg/dL (7-17); Calcium 7.2 mg/dL (8.4-10.2); Carbon Dioxide 25 mmol/L (22-30); Chloride 108 mmol/L (98-107); Glucose 105 mg/dL (74-99); Magnesium 2.3 mg/dL (1.6-2.3); Sodium 143 mmol/L (137-145); Total Bilirubin 0.7 mg/dL (0.2-1.3); Total Protein 4.6 g/dL (6.3-8.2)
[2017-10-10 16:35] LABS: Platelet Count 89 k/uL (150-450)
[2017-10-10 17:51] LABS: Glucose,Whole Blood 183 mg/dL (75-99)
[2017-10-10 18:03] LABS: Basophils % (A) 0 %; Eosinophils % (A) 1 %; HCT 23.9 % (34.0-46.0); HGB 7.9 gm/dL (11.4-16.0); Lymphocytes # (A) 0.7 k/uL (1.0-4.8); Lymphocytes % (A) 14 %; MCHC 33.2 g/dL (31.0-37.0); MCV 87.3 fL (80.0-100.0); Mean Platelet Volume 7.3; Monocytes # (A) 0.3 k/uL (0-1.0); Monocytes % (A) 6 %; Neutrophils # (A) 4.2 k/uL (1.3-7.7); Neutrophils % (A) 78 %; Platelet Count 116 k/uL (150-450); RBC 2.74 m/uL (3.80-5.40); WBC 5.4 k/uL (3.8-10.6)
[2017-10-10] MEDS: LEVOTHYROXINE 100 MCG TAB PO SCH (18:25)
[2017-10-10] MEDS: ceFAZolin IN SWFI 2 GM/20 ML SYRINGE IVP SCH (18:28)
--- NOTE | 2017-10-10 18:28 | OP ---
OPERATIVE REPORT DATE OF THE SURGERY: 10/10/2017. SURGEON: Dr. Laisha Min. ASSISTANTS: Cosme Hughes, nurse practitioner, and ILAN Grayson. PREOPERATIVE DIAGNOSES:: 1. Non ST elevation myocardial infarction. 2. Preserved left ventricle function. 3. Poorly-controlled hypertension. 4. Hyperlipidemia. 5. Obesity. 6. Strong family history of coronary artery disease. POSTOPERATIVE DIAGNOSES:: 1. Non ST elevation myocardial infarction. 2. Preserved left ventricle function. 3. Poorly-controlled hypertension. 4. Hyperlipidemia. 5. Obesity. 6. Strong family history of coronary artery disease. OPERATION:: 1. Triple coronary artery bypass grafting using the left internal mammary artery to the left anterior descending artery, reverse saphenous vein graft from the aorta to the obtuse marginal artery, reverse saphenous vein graft from the aorta to the right coronary artery. 2. Endoscopic harvesting of the left greater saphenous vein. 3. Intraoperative transesophageal echocardiogram and epiaortic scanning. 4. Intraoperative graft flow measurements using the Metaplacestim system. ESTIMATED BLOOD LOSS:: SPECIMEN TAKEN:: INDICATIONS FOR SURGERY: The patient is a 77-year-old lady who is visiting from [place] and who has been complaining of shortness of breath on exertion over the last several weeks that got worse along with some swelling in the leg that prompted her to check in the emergency room at [facility]. She was ruled in for non-ST elevation myocardial infarction and she was found to be severely hypertensive. The patient had a cardiac catheterization that showed triple-vessel disease and was transferred to [facility] for surgical revascularization. The left ventricular function is preserved and there are no significant valvular abnormalities. She had DVT studies that were negative. She had a CTA that ruled out pulmonary embolism. The STS risk was assessed with her. She understood it and agreed to proceed. NARRATIVE:: With the patient in supine position, the right internal jugular Sodus-Thaddeus catheter and right radial arterial line were placed in the preoperative holding area. Subsequently, she was brought to the operating room, where general endotracheal anesthesia was induced uneventfully. Her PA pressure was 40/20 and her index was 3 before induction. She received 2 g of cefazolin intravenously. The Greco catheter was inserted. The chest, abdomen and both lower extremities were prepped and draped using ChloraPrep. Ioban was used to cover the skin. CHIARA showed left ventricular hypertrophy, preserved systolic function and no significant valvular abnormalities. A midline sternotomy was performed and the bone was very thin. No bone wax was used. The left lo-sternum was elevated and the left internal mammary artery was harvested in a somewhat skeletonized fashion. The left pleura was intentionally opened in this process and was drained with a 28-Micronesian chest tube. I made a small breach in the right pleura which was drained with another 28-Micronesian chest tube. Mediastinal fat was transected between 2 ties and epiaortic scanning revealed concentric intimal thickening, but no protruding atheroma in the ascending aorta. Pericardium was opened in an inverted T-fashion and a pericardial cradle was created. Findings included small heart and small aorta proportional to the patient's body habitus. The aorta was soft. There were visible soft plaques scattered in the coronary circulation. After systemic heparinization and after placement of respective pledgeted pursestring, aortic cannulation with a 21-Micronesian soft flow cannula, venous cannulation via the right atrial appendage was performed. Antegrade as well as retrograde cardioplegia catheters were also placed via pledgeted Prolene pursestrings. In the same setting, the left greater saphenous vein was harvested endoscopically from groin to above the ankle level. That took quite a bit of time. The harvest took place after administration of 2500 units of heparin. The leg incisions were closed over a drain. The vein was prepared and appeared to be of good quality in the thigh and also of good quality in the lower leg. The mammary artery was clipped distally and transected, had an excellent pulsatile flow in it and was thin-walled, around 1.5 mm in diameter. Cardiopulmonary bypass was initiated and patient temperature was allowed to drift down to 34 degrees Celsius. We looked at the target and it appeared that there was a mid LAD soft plaque and we decided to open through that plaque to healthy arteries on both sides. The mid obtuse marginal artery and the right coronary artery would be the site for bypass. The aorta was clamped and during aortic clamping, myocardial protection was achieved with initial dose of 600 mL of antegrade cold blood cardioplegia followed by 400 mL of retrograde cold blood cardioplegia. All subsequent doses were given retrograde at 15- minute intervals. The 1st distal anastomosis was in a good segment of reverse saphenous vein graft and the mid aspect of the obtuse marginal artery which was around 1.5 mm in diameter using Prolene 7-0 in continuous fashion. There was adequate flow in the vein which was cut to length and suspended. The 2nd distal anastomosis was between another segment of reverse saphenous vein graft and the right coronary artery which was around 1.5 mm in diameter, thin-walled, using Prolene 7-0 in continuous fashion. There was adequate flow and the vein was cut to length and suspended. The last distal anastomosis was between the left internal mammary artery and the mid aspect of the left anterior descending artery which was opened through a focal plaque which was eccentric using Prolene 7-0 in continuous fashion. I performed all 3 distal anastomoses with a [address] to better define the edge of the arteriotomies. Satisfied with the distal anastomosis, rewarming was started and we punched out 2 buttons of the ascending aorta and the 2 proximal anastomoses with the 2 vein grafts were constructed using Prolene 6-0 in a continuous fashion. De-airing maneuvers were followed. The patient received magnesium lidocaine before unclamping the aorta. She eventually required spontaneous sinus rhythm. Two monopolar atrial pacing wires were affixed to the right atrial pursestrings and 1 bipolar ventricular pacing wire was driven via the anterior aspect of the right ventricle. One 32-Micronesian substernal chest tube was placed. After a period of reperfusion and after a preliminary graft measurement that showed patent graft, we were able to wean off cardiopulmonary bypass with the help of low dose of vasopressors. The CHIARA showed good LV function and relative hypovolemia. This was corrected. The patient eventually came off the vasopressors. At this point, test dose and full dose protamine was given. Decannulation followed. The aortic site as well as the venous cannulation sites were reinforced with Prolene pledgeted. The pericardial fat was approximated over the RV partially and over the aorta and the proximal graft. After ensuring adequate hemostasis and hemodynamic and after correct sponge, instrument and needle count, the sternum was approximated using 5 figure -of- eight [place] cable after interposing fibrillar between the sternal edges. Thorough irrigation with cefazolin followed. The rest of the closure proceeded in layers. Skin glue was applied. The patient received 1 unit of packed red blood cells and 200 mL of Cell Saver blood. She was transferred to the ICU in stable condition on low-dose nitroglycerin with good hemodynamics and normal EKG. MMODL / IJN: [id number] / ABILIO
[2017-10-10] MEDS: ACETAMINOPHEN IV (For NPO) 1,000 MG in EMPTY BAG 1 BAG IVPB SCH (18:36)
[2017-10-10] MEDS: ALBUMIN HUMAN 5% 250 ML in EMPTY BAG 1 BAG IVPB PRN (18:45)
[2017-10-10 19:47] LABS: Glucose,Whole Blood 175 mg/dL (75-99)
[2017-10-10] MEDS: INSULIN REGULAR 100 UNIT in SODIUM CHLORIDE 0.9% 100 ML IV SCH (19:57)
[2017-10-10 20:08] LABS: Glucose,Whole Blood 173 mg/dL (75-99)
[2017-10-10 20:26] LABS: ABG Base Excess -2.2 mmol/L; ABG HCO3 23 mmol/L (21-25); ABG Oxygen Saturation 94.3 % (94-97); ABG PCO2 41 mmHg (35-45); ABG PH 7.36 (7.35-7.45); ABG PO2 67 mmHg (83-108); ABG TCO2 25 mmol/L (19-24)
[2017-10-10 20:54] LABS: Glucose,Whole Blood 168 mg/dL (75-99)
[2017-10-10] MEDS: MORPHINE SULFATE 2 MG/ML SYRINGE IVP PRN (20:56)
[2017-10-10] MEDS: MUPIROCIN 2% OINT 22 GM TUBE NASAL SCH (21:22)
[2017-10-10 21:31] LABS: Basophils % (A) 0 %; Eosinophils % (A) 0 %; HCT 21.7 % (34.0-46.0); HGB 7.2 gm/dL (11.4-16.0); Lymphocytes # (A) 0.4 k/uL (1.0-4.8); Lymphocytes % (A) 6 %; MCH 29.3 pg (25.0-35.0); MCHC 33.4 g/dL (31.0-37.0); MCV 87.8 fL (80.0-100.0); Monocytes # (A) 0.4 k/uL (0-1.0); Monocytes % (A) 5 %; Neutrophils # (A) 6.5 k/uL (1.3-7.7); Neutrophils % (A) 88 %; Platelet Count 146 k/uL (150-450); RBC 2.47 m/uL (3.80-5.40); RDW 13.3 % (11.5-15.5); WBC 7.4 k/uL (3.8-10.6)
[2017-10-10 22:02] LABS: Glucose,Whole Blood 156 mg/dL (75-99)
[2017-10-10] MEDS: HEPARIN SODIUM,PORCINE 5,000 UNIT/ML 1 ML VIAL SQ SCH (22:03)
--- NOTE | 2017-10-10 22:13 | CONS ---
CONSULTATION SUBJECTIVE: A 77-year-old white female for medical management consult, status post CABG, history of hypertension, dyslipidemia, hypothyroidism. Family history of coronary artery disease, status post CABG surgery. He is intubated on mechanical ventilation at this time. NELSON to the LAD, saphenous vein to the OM, saphenous vein to the RCA. Temp 98.8, pulse 83, respiratory rate 16-18, pulse ox 97. CARDIOVASCULAR: S1-S2. LUNGS: Scattered wheeze. HEMATOLOGY: Negative Homans'. PSYCH: Fair mood and affect. NEUROLOGIC: Alert and oriented x3. Resting comfortably on the vent. Abdomen is soft. ASSESSMENT: Status post coronary artery bypass graft, triple-vessel disease. Risk factor modification. Please see further orders, medical consult. MMODL / IJN: [id number] /
[2017-10-10 22:50] LABS: Glucose,Whole Blood 136 mg/dL (75-99)
[2017-10-10] MEDS ORDERED: MORPHINE SULFATE 2 MG/ML SYRINGE ONE (23:00)
[2017-10-10] MEDS ORDERED: ceFAZolin IN SWFI 2 GM/20 ML SYRINGE IVP ONE (23:00)
[2017-10-10] MEDS ORDERED: ONDANSETRON 4 MG/2 ML VIAL ONE (23:00)
[2017-10-10] MEDS ORDERED: ACETAMINOPHEN IV (For NPO) 1,000 MG/100 ML VIAL ONE (23:00)
[2017-10-11 00:05] LABS: Glucose,Whole Blood 140 mg/dL (75-99)
[2017-10-11 01:08] LABS: Glucose,Whole Blood 135 mg/dL (75-99)
[2017-10-11 01:59] LABS: Glucose,Whole Blood 128 mg/dL (75-99)
[2017-10-11 03:02] LABS: Glucose,Whole Blood 130 mg/dL (75-99)
[2017-10-11 04:02] LABS: Glucose,Whole Blood 130 mg/dL (75-99)
[2017-10-11 04:32] LABS: Glucose,Whole Blood 130 mg/dL (75-99)
[2017-10-11] MEDS: ceFAZolin IN SWFI 2 GM/20 ML SYRINGE IVP SCH ×2 (04:45→08:34)
[2017-10-11] MEDS: ACETAMINOPHEN IV (For NPO) 1,000 MG in EMPTY BAG 1 BAG IVPB SCH ×5 (04:45→23:46)
[2017-10-11] MEDS: ALBUMIN HUMAN 5% 250 ML in EMPTY BAG 1 BAG IVPB PRN ×2 (04:49→10:10)
[2017-10-11] MEDS: MORPHINE SULFATE 2 MG/ML SYRINGE IVP PRN ×3 (04:57→09:11)
[2017-10-11 05:08] LABS: Basophils % (A) 0 %; Eosinophils % (A) 1 %; Lymphocytes # (A) 0.5 k/uL (1.0-4.8); Lymphocytes % (A) 8 %; MCH 28.7 pg (25.0-35.0); MCHC 33.1 g/dL (31.0-37.0); MCV 86.9 fL (80.0-100.0); Mean Platelet Volume 7.6; Monocytes # (A) 0.4 k/uL (0-1.0); Monocytes % (A) 7 %; Neutrophils # (A) 4.9 k/uL (1.3-7.7); Neutrophils % (A) 83 %; Platelet Count 140 k/uL (150-450); RBC 2.11 m/uL (3.80-5.40); RDW 13.3 % (11.5-15.5); WBC 5.9 k/uL (3.8-10.6)
[2017-10-11 05:10] LABS: HGB 6.1 gm/dL (11.4-16.0)
[2017-10-11 05:11] LABS: HCT 18.4 % (34.0-46.0)
[2017-10-11 05:13] LABS: INR 1.2 (<1.2); Prothrombin Time 11.3 sec (9.0-12.0)
[2017-10-11 06:13] LABS: Glucose,Whole Blood 127 mg/dL (75-99)
[2017-10-11 06:17] LABS: Ionized Calcium 4.6 mg/dL (4.5-5.3)
[2017-10-11 06:27] LABS: ALT 42 U/L (9-52); AST 49 U/L (14-36); Albumin 3.6 g/dL (3.5-5.0); Alkaline Phosphatase 30 U/L (38-126); Anion Gap 10 mmol/L; Blood Urea Nitrogen 13 mg/dL (7-17); Carbon Dioxide 24 mmol/L (22-30); Chloride 106 mmol/L (98-107); Glucose 111 mg/dL (74-99); Magnesium 2.2 mg/dL (1.6-2.3); Potassium 4.3 mmol/L (3.5-5.1); Sodium 140 mmol/L (137-145); Total Bilirubin 0.6 mg/dL (0.2-1.3); Total Protein 4.8 g/dL (6.3-8.2)
--- NOTE | 2017-10-11 06:44 | XR ---
EXAMINATION TYPE: XR chest 1V portable DATE OF EXAM: 10/11/2017 CLINICAL HISTORY: Post open cardiac surgery progress study. TECHNIQUE: Single AP portable upright view of the chest is obtained. COMPARISON: Chest x-ray from one and 2 days earlier. FINDINGS: There is interval extubation with removal of endotracheal and orogastric tubes. There is s table mediastinal drainage catheter and bilateral chest tubes as well as right internal jugular [place]- Thaddeus catheter. Overlying sternal wires and mediastinal clips remain present. There is persistent cardiomegaly. There is worsening left basilar opacity consistent with infiltrate and/or atelectasis. Right lung remains clear. No large pneumothorax is evident bilaterally. Fusion pl ate over right clavicle is redemonstrated. IMPRESSION: Interval extubation. There is persistent cardiomegaly with developing left basilar atelec tasis and/or infiltrate noted.
[2017-10-11] MEDS: LEVOTHYROXINE 100 MCG TAB PO SCH (07:08)
[2017-10-11] MEDS ORDERED: KETOROLAC 30 MG/ML 1 ML VIAL IVP STA (07:21)
[2017-10-11 07:33] LABS: Glucose,Whole Blood 115 mg/dL (75-99)
[2017-10-11 07:46] LABS: Glucose,Whole Blood 124 mg/dL (75-99)
[2017-10-11] MEDS: IPRATROPIUM-ALBUTEROL 3 ML NEB INHALATION SCH ×4 (07:49→20:33)
--- NOTE | 2017-10-11 07:54 | P.PN ---
Subjective Progress Note Date: 10/11/17 Principal diagnosis: Status post coronary artery bypass grafting This is a pleasant 77-year-old female patient with a past medical history significant for hypertension, dyslipidemia, and significant family history of coronary artery disease, presented to [facility] with a chest discomfort and was ruled in for acute non-ST patient myocardial infarction. She underwent a heart catheterization by Dr. Cox and was found to have severe chewable vessel coronary artery disease. The patient was referred for coronary artery bypass grafting and underwent CABG 3 yesterday. She did receive NELSON to LAD, SVG to OM, and SVG to RCA. This is post open day #1. The patient was extubated yesterday. Overall she has been maintaining normal sinus mechanism. Hemodynamically she is not on any vasopressors but the blood pressure has been marginally low and she is a slightly on the tachycardic side. Also the patient hemoglobin this morning is low at 6.1 and she is in process of having one unit of packed RBC. She is on dual antiplatelet therapy with aspirin and Plavix. She is on metoprolol as well and the dose was increased earlier today because of the tachycardia. Also she is on a statin at 40 mg by mouth daily which I do think we need to increase to 80 mg daily down the line once the liver function test normalized. Objective - Vital Signs Vital signs: Vital Signs Temp 99 F 10/11/17 05:59 Pulse 92 10/11/17 07:00 Resp 14 10/11/17 07:00 BP 96/45 10/11/17 05:59 Pulse Ox 100 10/11/17 07:00 Intake & Output 10/10/17 10/11/17 10/11/17 18:59 06:59 18:59 Intake Total 188.285 999.799 Output Total 4305 1282 Balance -4116.715 -282.201 Weight 77.3 kg Intake: IV 183 927 ACETAMINOPHEN IV (For NPO 100 ) 1,000 mg In Empty Bag 1 bag @ 400 mls/hr IVPB Q6HR PRETTY Rx#:[id number] Albumin Human 5% 250 ml 250 In Empty Bag 1 bag @ 250 mls/hr IVPB Q1HR PRN Rx#: [id number] CO/CI 70 Lactated Ringers 1,000 ml 150 450 @ 50 mls/hr IV .Q20H PRETTY Rx#:[id number] pressure Bag 57 Intake, IV Titration 5.285 72.799 Amount Clevidipine Butyrate 25 43.067 mg In Empty Bag 1 bag @ 1 MG/HR 2 mls/hr IV .Q24H PRETTY Rx#:[id number] Insulin Regular 100 unit 29.732 In Sodium Chloride 0.9% 100 ml @ Per Protocol IV .Q0M PRETTY Rx#:[id number] Propofol 1,000 mg In 5.285 Empty Bag 1 bag @ Titrate IV .Q0M PRETTY Rx#: [id number] Blood Product 0 Rc Pheresis 2 As3 Unit 0 [id number] Output: Chest Tube Drainage 650 552 LEFT PLEURAL 280 290 MEDIASTINAL 210 210 RIGHT PLEURAL 160 52 Drainage 40 Left Calf 40 Urine 2615 730 Estimated Blood Loss 1000 Other: Voiding Method Indwelling Catheter Indwelling Catheter # Voids 0 ABP, PAP, CO, CI - Last Documented Arterial Blood Pressure 111/54 Pulmonary Artery Pressure 35/20 Cardiac Output 3.3 Cardiac Index 1.9 - Constitutional General appearance: Present: no acute distress - Respiratory Respiratory: bilateral: diminished - Cardiovascular Rhythm: regular Heart sounds: normal: S1, S2 - Labs CBC & Chem 7: 10/11/17 04:52 10/11/17 04:52 Labs: Abnormal Lab Results - Last 24 Hours (Table) 10/09/17 10/10/17 10/10/17 Range/Units 06:16 08:45 11:12 WBC (3.8-10.6) k/uL RBC (3.80-5.40) m/uL Hgb (11.4-16.0) gm/dL Hct (34.0-46.0) % Plt Count (150-450) k/uL Lymphocytes # (1.0-4.8) k/uL PT (9.0-12.0) sec INR (<1.2) APTT (22.0-30.0) sec ABG pH 7.47 H (7.35-7.45) ABG pCO2 30 L (35-45) mmHg ABG pO2 309 H 127 H (83-108) mmHg ABG HCO3 (21-25) mmol/L ABG Total CO2 25 H (19-24) mmol/L ABG O2 Saturation 99.9 H 100.0 H (94-97) % ABG Hematocrit (34.0-46.0) % ABG Sodium 167 H* (135-146) mmol/L ABG Ionized Calcium (4.5-5.3) mg/dL ABG Glucose 115 H 133 H (75-99) mg/dL ABG Lactic Acid (0.5-1.6) mmol/L Hemoglobin (11.4-16.0) gm/dL Chloride (98-107) mmol/L Glucose (74-99) mg/dL POC Glucose (mg/dL) (75-99) mg/dL Calcium (8.4-10.2) mg/dL Ionized Calcium Gail (4.5-5.3) mg/dL AST (14-36) U/L Alkaline Phosphatase (38-126) U/L Total Protein (6.3-8.2) g/dL Albumin (3.5-5.0) g/dL Arterial Blood Glucose 115 H 133 H (75-99) mg/dL Crossmatch See Detail 10/10/17 10/10/17 10/10/17 Range/Units 11:14 12:17 12:49 WBC (3.8-10.6) k/uL RBC (3.80-5.40) m/uL Hgb (11.4-16.0) gm/dL Hct (34.0-46.0) % Plt Count (150-450) k/uL Lymphocytes # (1.0-4.8) k/uL PT (9.0-12.0) sec INR (<1.2) APTT (22.0-30.0) sec ABG pH 7.33 L (7.35-7.45) ABG pCO2 46 H (35-45) mmHg ABG pO2 129 H 392 H 370 H (83-108) mmHg ABG HCO3 (21-25) mmol/L ABG Total CO2 26 H 26 H 25 H (19-24) mmol/L ABG O2 Saturation 98.8 H 100.0 H 100.0 H (94-97) % ABG Hematocrit 24 L 23 L (34.0-46.0) % ABG Sodium (135-146) mmol/L ABG Ionized Calcium 4.0 L 4.0 L (4.5-5.3) mg/dL ABG Glucose 134 H 200 H 238 H (75-99) mg/dL ABG Lactic Acid 2.0 H 2.9 H* (0.5-1.6) mmol/L Hemoglobin 11.3 L 7.7 L 7.4 L (11.4-16.0) gm/dL Chloride (98-107) mmol/L Glucose (74-99) mg/dL POC Glucose (mg/dL) (75-99) mg/dL Calcium (8.4-10.2) mg/dL Ionized Calcium Gail (4.5-5.3) mg/dL AST (14-36) U/L Alkaline Phosphatase (38-126) U/L Total Protein (6.3-8.2) g/dL Albumin (3.5-5.0) g/dL Arterial Blood Glucose 134 H 200 H 238 H (75-99) mg/dL Crossmatch 10/10/17 10/10/17 10/10/17 Range/Units 13:16 14:32 14:32 WBC (3.8-10.6) k/uL RBC (3.80-5.40) m/uL Hgb (11.4-16.0) gm/dL Hct (34.0-46.0) % Plt Count (150-450) k/uL Lymphocytes # (1.0-4.8) k/uL PT (9.0-12.0) sec INR (<1.2) APTT (22.0-30.0) sec ABG pH 7.34 L (7.35-7.45) ABG pCO2 (35-45) mmHg ABG pO2 >420 H 241 H (83-108) mmHg ABG HCO3 (21-25) mmol/L ABG Total CO2 25 H 25 H (19-24) mmol/L ABG O2 Saturation 100.0 H 98.1 H 99.7 H (94-97) % ABG Hematocrit 22 L 22 L 21 L (34.0-46.0) % ABG Sodium (135-146) mmol/L ABG Ionized Calcium 4.2 L 3.8 L 3.7 L (4.5-5.3) mg/dL ABG Glucose 196 H 159 H 130 H (75-99) mg/dL ABG Lactic Acid 4.2 H* 4.1 H* 3.6 H* (0.5-1.6) mmol/L Hemoglobin 7.2 L 7.2 L 6.8 L* (11.4-16.0) gm/dL Chloride (98-107) mmol/L Glucose (74-99) mg/dL POC Glucose (mg/dL) (75-99) mg/dL Calcium (8.4-10.2) mg/dL Ionized Calcium Gail (4.5-5.3) mg/dL AST (14-36) U/L Alkaline Phosphatase (38-126) U/L Total Protein (6.3-8.2) g/dL Albumin (3.5-5.0) g/dL Arterial Blood Glucose 196 H 159 H 130 H (75-99) mg/dL Crossmatch 10/10/17 10/10/17 10/10/17 Range/Units 15:28 15:30 15:30 WBC 3.0 L (3.8-10.6) k/uL RBC 2.38 L (3.80-5.40) m/uL Hgb 7.0 L* D (11.4-16.0) gm/dL Hct 20.6 L (34.0-46.0) % Plt Count 89 L D (150-450) k/uL Lymphocytes # 0.5 L (1.0-4.8) k/uL PT (9.0-12.0) sec INR (<1.2) APTT (22.0-30.0) sec ABG pH (7.35-7.45) ABG pCO2 (35-45) mmHg ABG pO2 (83-108) mmHg ABG HCO3 (21-25) mmol/L ABG Total CO2 (19-24) mmol/L ABG O2 Saturation (94-97) % ABG Hematocrit (34.0-46.0) % ABG Sodium (135-146) mmol/L ABG Ionized Calcium (4.5-5.3) mg/dL ABG Glucose (75-99) mg/dL ABG Lactic Acid (0.5-1.6) mmol/L Hemoglobin (11.4-16.0) gm/dL Chloride 108 H (98-107) mmol/L Glucose 105 H (74-99) mg/dL POC Glucose (mg/dL) 113 H (75-99) mg/dL Calcium 7.2 L (8.4-10.2) mg/dL Ionized Calcium Gail 4.3 L (4.5-5.3) mg/dL AST 44 H (14-36) U/L Alkaline Phosphatase 26 L (38-126) U/L Total Protein 4.6 L (6.3-8.2) g/dL Albumin 3.4 L (3.5-5.0) g/dL Arterial Blood Glucose (75-99) mg/dL Crossmatch 10/10/17 10/10/17 10/10/17 Range/Units 15:30 15:46 17:45 WBC (3.8-10.6) k/uL RBC 2.74 L (3.80-5.40) m/uL Hgb 7.9 L (11.4-16.0) gm/dL Hct 23.9 L (34.0-46.0) % Plt Count 116 L (150-450) k/uL Lymphocytes # 0.7 L (1.0-4.8) k/uL PT 12.1 H (9.0-12.0) sec INR 1.3 H (<1.2) APTT 37.4 H (22.0-30.0) sec ABG pH 7.33 L (7.35-7.45) ABG pCO2 49 H (35-45) mmHg ABG pO2 212 H (83-108) mmHg ABG HCO3 26 H (21-25) mmol/L ABG Total CO2 27 H (19-24) mmol/L ABG O2 Saturation 99.8 H (94-97) % ABG Hematocrit (34.0-46.0) % ABG Sodium (135-146) mmol/L ABG Ionized Calcium (4.5-5.3) mg/dL ABG Glucose (75-99) mg/dL ABG Lactic Acid (0.5-1.6) mmol/L Hemoglobin (11.4-16.0) gm/dL Chloride (98-107) mmol/L Glucose (74-99) mg/dL POC Glucose (mg/dL) (75-99) mg/dL Calcium (8.4-10.2) mg/dL Ionized Calcium Gail (4.5-5.3) mg/dL AST (14-36) U/L Alkaline Phosphatase (38-126) U/L Total Protein (6.3-8.2) g/dL Albumin (3.5-5.0) g/dL Arterial Blood Glucose (75-99) mg/dL Crossmatch 10/10/17 10/10/17 10/10/17 Range/Units 17:50 19:46 20:06 WBC (3.8-10.6) k/uL RBC (3.80-5.40) m/uL Hgb (11.4-16.0) gm/dL Hct (34.0-46.0) % Plt Count (150-450) k/uL Lymphocytes # (1.0-4.8) k/uL PT (9.0-12.0) sec INR (<1.2) APTT (22.0-30.0) sec ABG pH (7.35-7.45) ABG pCO2 (35-45) mmHg ABG pO2 (83-108) mmHg ABG HCO3 (21-25) mmol/L ABG Total CO2 (19-24) mmol/L ABG O2 Saturation (94-97) % ABG Hematocrit (34.0-46.0) % ABG Sodium (135-146) mmol/L ABG Ionized Calcium (4.5-5.3) mg/dL ABG Glucose (75-99) mg/dL ABG Lactic Acid (0.5-1.6) mmol/L Hemoglobin (11.4-16.0) gm/dL Chloride (98-107) mmol/L Glucose (74-99) mg/dL POC Glucose (mg/dL) 183 H 175 H 173 H (75-99) mg/dL Calcium (8.4-10.2) mg/dL Ionized Calcium Gail (4.5-5.3) mg/dL AST (14-36) U/L Alkaline Phosphatase (38-126) U/L Total Protein (6.3-8.2) g/dL Albumin (3.5-5.0) g/dL Arterial Blood Glucose (75-99) mg/dL Crossmatch 10/10/17 10/10/17 10/10/17 Range/Units 20:15 20:50 20:51 WBC (3.8-10.6) k/uL RBC 2.47 L (3.80-5.40) m/uL Hgb 7.2 L (11.4-16.0) gm/dL Hct 21.7 L (34.0-46.0) % Plt Count 146 L (150-450) k/uL Lymphocytes # 0.4 L (1.0-4.8) k/uL PT (9.0-12.0) sec INR (<1.2) APTT (22.0-30.0) sec ABG pH (7.35-7.45) ABG pCO2 (35-45) mmHg ABG pO2 67 L (83-108) mmHg ABG HCO3 (21-25) mmol/L ABG Total CO2 25 H (19-24) mmol/L ABG O2 Saturation (94-97) % ABG Hematocrit (34.0-46.0) % ABG Sodium (135-146) mmol/L ABG Ionized Calcium (4.5-5.3) mg/dL ABG Glucose (75-99) mg/dL ABG Lactic Acid (0.5-1.6) mmol/L Hemoglobin (11.4-16.0) gm/dL Chloride (98-107) mmol/L Glucose (74-99) mg/dL POC Glucose (mg/dL) 168 H (75-99) mg/dL Calcium (8.4-10.2) mg/dL Ionized Calcium Gail (4.5-5.3) mg/dL AST (14-36) U/L Alkaline Phosphatase (38-126) U/L Total Protein (6.3-8.2) g/dL Albumin (3.5-5.0) g/dL Arterial Blood Glucose (75-99) mg/dL Crossmatch 10/10/17 10/10/17 10/11/17 Range/Units 21:59 22:48 00:04 WBC (3.8-10.6) k/uL RBC (3.80-5.40) m/uL Hgb (11.4-16.0) gm/dL Hct (34.0-46.0) % Plt Count (150-450) k/uL Lymphocytes # (1.0-4.8) k/uL PT (9.0-12.0) sec INR (<1.2) APTT (22.0-30.0) sec ABG pH (7.35-7.45) ABG pCO2 (35-45) mmHg ABG pO2 (83-108) mmHg ABG HCO3 (21-25) mmol/L ABG Total CO2 (19-24) mmol/L ABG O2 Saturation (94-97) % ABG Hematocrit (34.0-46.0) % ABG Sodium (135-146) mmol/L ABG Ionized Calcium (4.5-5.3) mg/dL ABG Glucose (75-99) mg/dL ABG Lactic Acid (0.5-1.6) mmol/L Hemoglobin (11.4-16.0) gm/dL Chloride (98-107) mmol/L Glucose (74-99) mg/dL POC Glucose (mg/dL) 156 H 136 H 140 H (75-99) mg/dL Calcium (8.4-10.2) mg/dL Ionized Calcium Gail (4.5-5.3) mg/dL AST (14-36) U/L Alkaline Phosphatase (38-126) U/L Total Protein (6.3-8.2) g/dL Albumin (3.5-5.0) g/dL Arterial Blood Glucose (75-99) mg/dL Crossmatch 10/11/17 10/11/17 10/11/17 Range/Units 01:06 01:57 03:00 WBC (3.8-10.6) k/uL RBC (3.80-5.40) m/uL Hgb (11.4-16.0) gm/dL Hct (34.0-46.0) % Plt Count (150-450) k/uL Lymphocytes # (1.0-4.8) k/uL PT (9.0-12.0) sec INR (<1.2) APTT (22.0-30.0) sec ABG pH (7.35-7.45) ABG pCO2 (35-45) mmHg ABG pO2 (83-108) mmHg ABG HCO3 (21-25) mmol/L ABG Total CO2 (19-24) mmol/L ABG O2 Saturation (94-97) % ABG Hematocrit (34.0-46.0) % ABG Sodium (135-146) mmol/L ABG Ionized Calcium (4.5-5.3) mg/dL ABG Glucose (75-99) mg/dL ABG Lactic Acid (0.5-1.6) mmol/L Hemoglobin (11.4-16.0) gm/dL Chloride (98-107) mmol/L Glucose (74-99) mg/dL POC Glucose (mg/dL) 135 H 128 H 130 H (75-99) mg/dL Calcium (8.4-10.2) mg/dL Ionized Calcium Gail (4.5-5.3) mg/dL AST (14-36) U/L Alkaline Phosphatase (38-126) U/L Total Protein (6.3-8.2) g/dL Albumin (3.5-5.0) g/dL Arterial Blood Glucose (75-99) mg/dL Crossmatch 10/11/17 10/11/17 10/11/17 Range/Units 04:01 04:31 04:52 WBC (3.8-10.6) k/uL RBC 2.11 L (3.80-5.40) m/uL Hgb 6.1 L* (11.4-16.0) gm/dL Hct 18.4 L* (34.0-46.0) % Plt Count 140 L (150-450) k/uL Lymphocytes # 0.5 L (1.0-4.8) k/uL PT (9.0-12.0) sec INR (<1.2) APTT (22.0-30.0) sec ABG pH (7.35-7.45) ABG pCO2 (35-45) mmHg ABG pO2 (83-108) mmHg ABG HCO3 (21-25) mmol/L ABG Total CO2 (19-24) mmol/L ABG O2 Saturation (94-97) % ABG Hematocrit (34.0-46.0) % ABG Sodium (135-146) mmol/L ABG Ionized Calcium (4.5-5.3) mg/dL ABG Glucose (75-99) mg/dL ABG Lactic Acid (0.5-1.6) mmol/L Hemoglobin (11.4-16.0) gm/dL Chloride (98-107) mmol/L Glucose (74-99) mg/dL POC Glucose (mg/dL) 130 H 130 H (75-99) mg/dL Calcium (8.4-10.2) mg/dL Ionized Calcium Gail (4.5-5.3) mg/dL AST (14-36) U/L Alkaline Phosphatase (38-126) U/L Total Protein (6.3-8.2) g/dL Albumin (3.5-5.0) g/dL Arterial Blood Glucose (75-99) mg/dL Crossmatch 10/11/17 10/11/17 10/11/17 Range/Units 04:52 04:52 06:11 WBC (3.8-10.6) k/uL RBC (3.80-5.40) m/uL Hgb (11.4-16.0) gm/dL Hct (34.0-46.0) % Plt Count (150-450) k/uL Lymphocytes # (1.0-4.8) k/uL PT (9.0-12.0) sec INR 1.2 H (<1.2) APTT 33.0 H (22.0-30.0) sec ABG pH (7.35-7.45) ABG pCO2 (35-45) mmHg ABG pO2 (83-108) mmHg ABG HCO3 (21-25) mmol/L ABG Total CO2 (19-24) mmol/L ABG O2 Saturation (94-97) % ABG Hematocrit (34.0-46.0) % ABG Sodium (135-146) mmol/L ABG Ionized Calcium (4.5-5.3) mg/dL ABG Glucose (75-99) mg/dL ABG Lactic Acid (0.5-1.6) mmol/L Hemoglobin (11.4-16.0) gm/dL Chloride (98-107) mmol/L Glucose 111 H (74-99) mg/dL POC Glucose (mg/dL) 127 H (75-99) mg/dL Calcium 8.0 L (8.4-10.2) mg/dL Ionized Calcium Gail (4.5-5.3) mg/dL AST 49 H (14-36) U/L Alkaline Phosphatase 30 L (38-126) U/L Total Protein 4.8 L (6.3-8.2) g/dL Albumin (3.5-5.0) g/dL Arterial Blood Glucose (75-99) mg/dL Crossmatch 10/11/17 10/11/17 Range/Units 06:52 07:45 WBC (3.8-10.6) k/uL RBC (3.80-5.40) m/uL Hgb (11.4-16.0) gm/dL Hct (34.0-46.0) % Plt Count (150-450) k/uL Lymphocytes # (1.0-4.8) k/uL PT (9.0-12.0) sec INR (<1.2) APTT (22.0-30.0) sec ABG pH (7.35-7.45) ABG pCO2 (35-45) mmHg ABG pO2 (83-108) mmHg ABG HCO3 (21-25) mmol/L ABG Total CO2 (19-24) mmol/L ABG O2 Saturation (94-97) % ABG Hematocrit (34.0-46.0) % ABG Sodium (135-146) mmol/L ABG Ionized Calcium (4.5-5.3) mg/dL ABG Glucose (75-99) mg/dL ABG Lactic Acid (0.5-1.6) mmol/L Hemoglobin (11.4-16.0) gm/dL Chloride (98-107) mmol/L Glucose (74-99) mg/dL POC Glucose (mg/dL) 115 H 124 H (75-99) mg/dL Calcium (8.4-10.2) mg/dL Ionized Calcium Gail (4.5-5.3) mg/dL AST (14-36) U/L Alkaline Phosphatase (38-126) U/L Total Protein (6.3-8.2) g/dL Albumin (3.5-5.0) g/dL Arterial Blood Glucose (75-99) mg/dL Crossmatch Microbiology - Last 24 Hours (Table) 10/09/17 04:45 Nasal Screen MRSA/MSSA - Final Nasal Swab Assessment and Plan Assessment: Assessment #1 acute coronary event. Acute non-ST patient myocardial infarction #2 severe triple-vessel CAD and status post CABG as described above #3 acute respiratory failure which has resolved #4 blood loss anemia. #5 hypertension #6 dyslipidemia Plan #1 the patient was extubated yesterday #2 hemodynamically she is stable and she is not on any vasopressors #3 she is on maximize medical treatment which included dual antiplatelet therapy , beta rory, and statin #4 we'll consider add LOLY inhibitor to the current medical treatment once her pressure improved #5 continue monitor the hemoglobin along with kidney function, and electrolytes. #6 follow-up with the patient.
[2017-10-11] MEDS ORDERED: FUROSEMIDE 10 MG/ML 2 ML VIAL IV ONE (07:55)
[2017-10-11] MEDS: METOPROLOL TARTRATE 25 MG TAB PO SCH ×2 (08:19→20:49)
[2017-10-11] MEDS ORDERED: METOPROLOL TARTRATE 12.5 MG TAB PO SCH (09:00)
[2017-10-11] MEDS ORDERED: PANTOPRAZOLE 40 MG/10 ML VIAL IVP SCH (09:00)
[2017-10-11 09:01] LABS: Glucose,Whole Blood 128 mg/dL (75-99)
[2017-10-11] MEDS: PANTOPRAZOLE 40 MG TABLET PO SCH (09:06)
[2017-10-11] MEDS: MUPIROCIN 2% OINT 22 GM TUBE NASAL SCH ×2 (09:06→20:49)
[2017-10-11] MEDS: ATORVASTATIN 40 MG TAB PO SCH (09:06)
[2017-10-11] MEDS: HEPARIN SODIUM,PORCINE 5,000 UNIT/ML 1 ML VIAL SQ SCH ×2 (09:21→16:41)
[2017-10-11] MEDS: CLOPIDOGREL 75 MG TAB PO SCH (09:21)
[2017-10-11] MEDS: ASPIRIN 325 MG TAB PO SCH (09:21)
[2017-10-11 09:59] LABS: Glucose,Whole Blood 120 mg/dL (75-99)
[2017-10-11 10:12] LABS: Basophils % (A) 0 %; Eosinophils % (A) 1 %; HCT 21.4 % (34.0-46.0); HGB 7.1 gm/dL (11.4-16.0); Lymphocytes # (A) 0.7 k/uL (1.0-4.8); Lymphocytes % (A) 10 %; MCH 29.1 pg (25.0-35.0); MCHC 33.3 g/dL (31.0-37.0); MCV 87.3 fL (80.0-100.0); Mean Platelet Volume 6.9; Monocytes # (A) 0.3 k/uL (0-1.0); Monocytes % (A) 5 %; Neutrophils # (A) 5.7 k/uL (1.3-7.7); Neutrophils % (A) 83 %; Platelet Count 148 k/uL (150-450); RBC 2.45 m/uL (3.80-5.40); RDW 13.8 % (11.5-15.5); WBC 6.8 k/uL (3.8-10.6)
[2017-10-11 11:18] LABS: Glucose,Whole Blood 99 mg/dL (75-99)
[2017-10-11 12:06] LABS: Glucose,Whole Blood 95 mg/dL (75-99)
[2017-10-11] MEDS: METOCLOPRAMIDE 5 MG/ML 2 ML VIAL IVP PRN (12:18)
[2017-10-11] MEDS: KETOROLAC 30 MG/ML 1 ML VIAL IVP SCH ×2 (12:18→17:56)
[2017-10-11] MEDS: FERROUS SULFATE 325 MG TAB PO SCH (12:19)
[2017-10-11] MEDS: ASCORBIC ACID 500 MG TAB PO SCH (12:19)
[2017-10-11] MEDS: LACTATED RINGERS 1,000 ML IV SCH (12:19)
[2017-10-11 13:25] VITALS: BMI 32.1
--- NOTE | 2017-10-11 13:26 | P.PN ---
Subjective Progress Note Date: 10/11/17 Principal diagnosis: Symptomatic multivessel coronary artery disease, preserved left ventricular function, poorly controlled hypertension, hyperlipidemia, hypothyroid, obesity, and a strong family history of coronary artery disease. POD #1 triple coronary artery bypass grafting using the left internal mammary artery to the left anterior descending coronary artery, reverse greater saphenous vein graft from the aorta to the obtuse marginal coronary artery, reverse greater saphenous vein graft from the aorta to the right coronary artery. Endoscopic harvesting of the left greater saphenous vein. Intraoperative transesophageal echocardiogram and epi-aortic scanning. Intraoperative graft flow measurements using the [employer] system. Patient is sitting up to the bedside chair. She is in no acute distress. Complaining of pain 10 out of 10 on the pain scale to her chest tube insertion sites. Denies any complaints of shortness of breath. She is alert and oriented 3. She is achieving 500 mL on her incentive spirometry. Postoperative normocytic, normochromic anemia, an expected outcome of surgery secondary to hemodilution and bypass pump use. Objective - Vital Signs Vital signs: Vital Signs Temp 99.1 F 10/11/17 08:00 Pulse 93 10/11/17 09:00 Resp 14 10/11/17 09:00 BP 116/57 10/11/17 07:51 Pulse Ox 99 10/11/17 09:00 Intake & Output 10/10/17 10/11/17 10/11/17 18:59 06:59 18:59 Intake Total 188.285 999.799 461.121 Output Total 4305 1282 205 Balance -4116.715 -282.201 256.121 Weight 77.3 kg Intake: IV 183 927 148 ACETAMINOPHEN IV (For NPO 100 ) 1,000 mg In Empty Bag 1 bag @ 400 mls/hr IVPB Q6HR PRETTY Rx#:[id number] Albumin Human 5% 250 ml 250 In Empty Bag 1 bag @ 250 mls/hr IVPB Q1HR PRN Rx#: [id number] CO/CI 70 60 Lactated Ringers 1,000 ml 150 450 70 @ 20 mls/hr IV .Q24H PRETTY Rx#:[id number] pressure Bag 57 18 Intake, IV Titration 5.285 72.799 3.121 Amount Clevidipine Butyrate 25 43.067 mg In Empty Bag 1 bag @ 1 MG/HR 2 mls/hr IV .Q24H PRETTY Rx#:[id number] Insulin Regular 100 unit 29.732 3.121 In Sodium Chloride 0.9% 100 ml @ Per Protocol IV .Q0M PRETTY Rx#:[id number] Propofol 1,000 mg In 5.285 Empty Bag 1 bag @ Titrate IV .Q0M PRETTY Rx#: [id number] Blood Product 0 310 Rc Pheresis 2 As3 Unit 0 310 [id number] Output: Chest Tube Drainage 650 552 90 LEFT PLEURAL 280 290 30 MEDIASTINAL 210 210 40 RIGHT PLEURAL 160 52 20 Drainage 40 Left Calf 40 Urine 2615 730 115 Estimated Blood Loss 1000 Other: Voiding Method Indwelling Catheter Indwelling Catheter Indwelling Catheter # Voids 0 ABP, PAP, CO, CI - Last Documented Arterial Blood Pressure 119/58 Pulmonary Artery Pressure 35/22 Cardiac Output 3.5 Cardiac Index 2.1 - Constitutional General appearance: Present: cooperative, no acute distress, obese - Respiratory Details: Lung sounds are essentially clear throughout, diminished bilateral bases. Respirations are symmetrical and nonlabored. Oxygen saturation are 96% on 2 L nasal cannula. She is achieving 500 mL on her incentive spirometry. Mediastinal, left and right pleural chest tubes in place to low continuous wall suction -20 cm H2O. No air leak is present. Draining thin serosanguineous drainage. Left pleural chest tube drained 220 mL in the last 8 hours, 800 mL since surgery. Mediastinal chest tube drained 50 mL in the last 8 hours, 450 mL since surgery. Right pleural chest tube drained 90 mL in the last 8 hours, 280 mL since surgery. - Cardiovascular Details: Regular rhythm and rate. S1 and S2 present, negative for S3, gallop or murmur. Sternum is stable. Bedside telemetry showing normal sinus rhythm heart rate 93. Atrial and ventricular epicardial pacemaker wires intact and connected to bedside backup generator. Right IJ cordis and [place]-Thaddeus catheter in place and functioning. Current cardiac output 3.3, cardiac index 1.9, PA pressures 36/21 , CVP 20 mmHg. +1 edema to her bilateral lower extremities. Knee-high MARILIN hose and sequential compression devices in place to bilateral lower extremities. - Gastrointestinal Gastrointestinal Comment(s): Abdomen is soft, nontender and nondistended. Hypoactive bowel sounds all 4 abdominal quadrants. Tolerating oral intake. Passing flatus. - Genitourinary Genitourinary Comment(s): Greco catheter for accurate I&O. Greco draining clear yellow urine. Marginal urine output in the last 8 hours 200 mL. - Integumentary Integumentary Comment(s): Skin is warm and dry. No clubbing or cyanosis present. Midline sternal incision clean and dry and approximated. No drainage or redness present. Left leg EVH site clean dry and approximated. No drainage or redness present. Ecchymotic area which is soft touch to her left medial thigh. MIGUEL ÁNGEL drain in place draining thin serosanguineous drainage. 40 mL output since surgery. - Neurologic Neurologic Comment(s): No focal deficits. Neurologic: Present: CNII-XII intact - Musculoskeletal Musculoskeletal: Present: gait normal, generalized weakness, strength equal bilaterally - Psychiatric Psychiatric: Present: A&O x's 3, appropriate affect, intact judgment & insight - Labs CBC & Chem 7: 10/11/17 10:00 10/11/17 04:52 Labs: Abnormal Lab Results - Last 24 Hours (Table) 10/09/17 10/10/17 10/10/17 Range/Units 06:16 08:45 11:12 WBC (3.8-10.6) k/uL RBC (3.80-5.40) m/uL Hgb (11.4-16.0) gm/dL Hct (34.0-46.0) % Plt Count (150-450) k/uL Lymphocytes # (1.0-4.8) k/uL PT (9.0-12.0) sec INR (<1.2) APTT (22.0-30.0) sec ABG pH 7.47 H (7.35-7.45) ABG pCO2 30 L (35-45) mmHg ABG pO2 309 H 127 H (83-108) mmHg ABG HCO3 (21-25) mmol/L ABG Total CO2 25 H (19-24) mmol/L ABG O2 Saturation 99.9 H 100.0 H (94-97) % ABG Hematocrit (34.0-46.0) % ABG Sodium 167 H* (135-146) mmol/L ABG Ionized Calcium (4.5-5.3) mg/dL ABG Glucose 115 H 133 H (75-99) mg/dL ABG Lactic Acid (0.5-1.6) mmol/L Hemoglobin (11.4-16.0) gm/dL Chloride (98-107) mmol/L Glucose (74-99) mg/dL POC Glucose (mg/dL) (75-99) mg/dL Calcium (8.4-10.2) mg/dL Ionized Calcium Gail (4.5-5.3) mg/dL AST (14-36) U/L Alkaline Phosphatase (38-126) U/L Total Protein (6.3-8.2) g/dL Albumin (3.5-5.0) g/dL Arterial Blood Glucose 115 H 133 H (75-99) mg/dL Crossmatch See Detail 10/10/17 10/10/17 10/10/17 Range/Units 11:14 12:17 12:49 WBC (3.8-10.6) k/uL RBC (3.80-5.40) m/uL Hgb (11.4-16.0) gm/dL Hct (34.0-46.0) % Plt Count (150-450) k/uL Lymphocytes # (1.0-4.8) k/uL PT (9.0-12.0) sec INR (<1.2) APTT (22.0-30.0) sec ABG pH 7.33 L (7.35-7.45) ABG pCO2 46 H (35-45) mmHg ABG pO2 129 H 392 H 370 H (83-108) mmHg ABG HCO3 (21-25) mmol/L ABG Total CO2 26 H 26 H 25 H (19-24) mmol/L ABG O2 Saturation 98.8 H 100.0 H 100.0 H (94-97) % ABG Hematocrit 24 L 23 L (34.0-46.0) % ABG Sodium (135-146) mmol/L ABG Ionized Calcium 4.0 L 4.0 L (4.5-5.3) mg/dL ABG Glucose 134 H 200 H 238 H (75-99) mg/dL ABG Lactic Acid 2.0 H 2.9 H* (0.5-1.6) mmol/L Hemoglobin 11.3 L 7.7 L 7.4 L (11.4-16.0) gm/dL Chloride (98-107) mmol/L Glucose (74-99) mg/dL POC Glucose (mg/dL) (75-99) mg/dL Calcium (8.4-10.2) mg/dL Ionized Calcium Gail (4.5-5.3) mg/dL AST (14-36) U/L Alkaline Phosphatase (38-126) U/L Total Protein (6.3-8.2) g/dL Albumin (3.5-5.0) g/dL Arterial Blood Glucose 134 H 200 H 238 H (75-99) mg/dL Crossmatch 10/10/17 10/10/17 10/10/17 Range/Units 13:16 14:32 14:32 WBC (3.8-10.6) k/uL RBC (3.80-5.40) m/uL Hgb (11.4-16.0) gm/dL Hct (34.0-46.0) % Plt Count (150-450) k/uL Lymphocytes # (1.0-4.8) k/uL PT (9.0-12.0) sec INR (<1.2) APTT (22.0-30.0) sec ABG pH 7.34 L (7.35-7.45) ABG pCO2 (35-45) mmHg ABG pO2 >420 H 241 H (83-108) mmHg ABG HCO3 (21-25) mmol/L ABG Total CO2 25 H 25 H (19-24) mmol/L ABG O2 Saturation 100.0 H 98.1 H 99.7 H (94-97) % ABG Hematocrit 22 L 22 L 21 L (34.0-46.0) % ABG Sodium (135-146) mmol/L ABG Ionized Calcium 4.2 L 3.8 L 3.7 L (4.5-5.3) mg/dL ABG Glucose 196 H 159 H 130 H (75-99) mg/dL ABG Lactic Acid 4.2 H* 4.1 H* 3.6 H* (0.5-1.6) mmol/L Hemoglobin 7.2 L 7.2 L 6.8 L* (11.4-16.0) gm/dL Chloride (98-107) mmol/L Glucose (74-99) mg/dL POC Glucose (mg/dL) (75-99) mg/dL Calcium (8.4-10.2) mg/dL Ionized Calcium Gail (4.5-5.3) mg/dL AST (14-36) U/L Alkaline Phosphatase (38-126) U/L Total Protein (6.3-8.2) g/dL Albumin (3.5-5.0) g/dL Arterial Blood Glucose 196 H 159 H 130 H (75-99) mg/dL Crossmatch 10/10/17 10/10/17 10/10/17 Range/Units 15:28 15:30 15:30 WBC 3.0 L (3.8-10.6) k/uL RBC 2.38 L (3.80-5.40) m/uL Hgb 7.0 L* D (11.4-16.0) gm/dL Hct 20.6 L (34.0-46.0) % Plt Count 89 L D (150-450) k/uL Lymphocytes # 0.5 L (1.0-4.8) k/uL PT (9.0-12.0) sec INR (<1.2) APTT (22.0-30.0) sec ABG pH (7.35-7.45) ABG pCO2 (35-45) mmHg ABG pO2 (83-108) mmHg ABG HCO3 (21-25) mmol/L ABG Total CO2 (19-24) mmol/L ABG O2 Saturation (94-97) % ABG Hematocrit (34.0-46.0) % ABG Sodium (135-146) mmol/L ABG Ionized Calcium (4.5-5.3) mg/dL ABG Glucose (75-99) mg/dL ABG Lactic Acid (0.5-1.6) mmol/L Hemoglobin (11.4-16.0) gm/dL Chloride 108 H (98-107) mmol/L Glucose 105 H (74-99) mg/dL POC Glucose (mg/dL) 113 H (75-99) mg/dL Calcium 7.2 L (8.4-10.2) mg/dL Ionized Calcium Gail 4.3 L (4.5-5.3) mg/dL AST 44 H (14-36) U/L Alkaline Phosphatase 26 L (38-126) U/L Total Protein 4.6 L (6.3-8.2) g/dL Albumin 3.4 L (3.5-5.0) g/dL Arterial Blood Glucose (75-99) mg/dL Crossmatch 10/10/17 10/10/17 10/10/17 Range/Units 15:30 15:46 17:45 WBC (3.8-10.6) k/uL RBC 2.74 L (3.80-5.40) m/uL Hgb 7.9 L (11.4-16.0) gm/dL Hct 23.9 L (34.0-46.0) % Plt Count 116 L (150-450) k/uL Lymphocytes # 0.7 L (1.0-4.8) k/uL PT 12.1 H (9.0-12.0) sec INR 1.3 H (<1.2) APTT 37.4 H (22.0-30.0) sec ABG pH 7.33 L (7.35-7.45) ABG pCO2 49 H (35-45) mmHg ABG pO2 212 H (83-108) mmHg ABG HCO3 26 H (21-25) mmol/L ABG Total CO2 27 H (19-24) mmol/L ABG O2 Saturation 99.8 H (94-97) % ABG Hematocrit (34.0-46.0) % ABG Sodium (135-146) mmol/L ABG Ionized Calcium (4.5-5.3) mg/dL ABG Glucose (75-99) mg/dL ABG Lactic Acid (0.5-1.6) mmol/L Hemoglobin (11.4-16.0) gm/dL Chloride (98-107) mmol/L Glucose (74-99) mg/dL POC Glucose (mg/dL) (75-99) mg/dL Calcium (8.4-10.2) mg/dL Ionized Calcium Gail (4.5-5.3) mg/dL AST (14-36) U/L Alkaline Phosphatase (38-126) U/L Total Protein (6.3-8.2) g/dL Albumin (3.5-5.0) g/dL Arterial Blood Glucose (75-99) mg/dL Crossmatch 10/10/17 10/10/1718 Range/Units 17:50 19:46 20:06 WBC (3.8-10.6) k/uL RBC (3.80-5.40) m/uL Hgb (11.4-16.0) gm/dL Hct (34.0-46.0) % Plt Count (150-450) k/uL Lymphocytes # (1.0-4.8) k/uL PT (9.0-12.0) sec INR (<1.2) APTT (22.0-30.0) sec ABG pH (7.35-7.45) ABG pCO2 (35-45) mmHg ABG pO2 (83-108) mmHg ABG HCO3 (21-25) mmol/L ABG Total CO2 (19-24) mmol/L ABG O2 Saturation (94-97) % ABG Hematocrit (34.0-46.0) % ABG Sodium (135-146) mmol/L ABG Ionized Calcium (4.5-5.3) mg/dL ABG Glucose (75-99) mg/dL ABG Lactic Acid (0.5-1.6) mmol/L Hemoglobin (11.4-16.0) gm/dL Chloride (98-107) mmol/L Glucose (74-99) mg/dL POC Glucose (mg/dL) 183 H 175 H 173 H (75-99) mg/dL Calcium (8.4-10.2) mg/dL Ionized Calcium Gail (4.5-5.3) mg/dL AST (14-36) U/L Alkaline Phosphatase (38-126) U/L Total Protein (6.3-8.2) g/dL Albumin (3.5-5.0) g/dL Arterial Blood Glucose (75-99) mg/dL Crossmatch 10/10/17 10/10/17 10/10/17 Range/Units 20:15 20:50 20:51 WBC (3.8-10.6) k/uL RBC 2.47 L (3.80-5.40) m/uL Hgb 7.2 L (11.4-16.0) gm/dL Hct 21.7 L (34.0-46.0) % Plt Count 146 L (150-450) k/uL Lymphocytes # 0.4 L (1.0-4.8) k/uL PT (9.0-12.0) sec INR (<1.2) APTT (22.0-30.0) sec ABG pH (7.35-7.45) ABG pCO2 (35-45) mmHg ABG pO2 67 L (83-108) mmHg ABG HCO3 (21-25) mmol/L ABG Total CO2 25 H (19-24) mmol/L ABG O2 Saturation (94-97) % ABG Hematocrit (34.0-46.0) % ABG Sodium (135-146) mmol/L ABG Ionized Calcium (4.5-5.3) mg/dL ABG Glucose (75-99) mg/dL ABG Lactic Acid (0.5-1.6) mmol/L Hemoglobin (11.4-16.0) gm/dL Chloride (98-107) mmol/L Glucose (74-99) mg/dL POC Glucose (mg/dL) 168 H (75-99) mg/dL Calcium (8.4-10.2) mg/dL Ionized Calcium Gail (4.5-5.3) mg/dL AST (14-36) U/L Alkaline Phosphatase (38-126) U/L Total Protein (6.3-8.2) g/dL Albumin (3.5-5.0) g/dL Arterial Blood Glucose (75-99) mg/dL Crossmatch 10/10/17 10/10/17 10/11/17 Range/Units 21:59 22:48 00:04 WBC (3.8-10.6) k/uL RBC (3.80-5.40) m/uL Hgb (11.4-16.0) gm/dL Hct (34.0-46.0) % Plt Count (150-450) k/uL Lymphocytes # (1.0-4.8) k/uL PT (9.0-12.0) sec INR (<1.2) APTT (22.0-30.0) sec ABG pH (7.35-7.45) ABG pCO2 (35-45) mmHg ABG pO2 (83-108) mmHg ABG HCO3 (21-25) mmol/L ABG Total CO2 (19-24) mmol/L ABG O2 Saturation (94-97) % ABG Hematocrit (34.0-46.0) % ABG Sodium (135-146) mmol/L ABG Ionized Calcium (4.5-5.3) mg/dL ABG Glucose (75-99) mg/dL ABG Lactic Acid (0.5-1.6) mmol/L Hemoglobin (11.4-16.0) gm/dL Chloride (98-107) mmol/L Glucose (74-99) mg/dL POC Glucose (mg/dL) 156 H 136 H 140 H (75-99) mg/dL Calcium (8.4-10.2) mg/dL Ionized Calcium Gail (4.5-5.3) mg/dL AST (14-36) U/L Alkaline Phosphatase (38-126) U/L Total Protein (6.3-8.2) g/dL Albumin (3.5-5.0) g/dL Arterial Blood Glucose (75-99) mg/dL Crossmatch 10/11/17 10/11/17 10/11/17 Range/Units 01:06 01:57 03:00 WBC (3.8-10.6) k/uL RBC (3.80-5.40) m/uL Hgb (11.4-16.0) gm/dL Hct (34.0-46.0) % Plt Count (150-450) k/uL Lymphocytes # (1.0-4.8) k/uL PT (9.0-12.0) sec INR (<1.2) APTT (22.0-30.0) sec ABG pH (7.35-7.45) ABG pCO2 (35-45) mmHg ABG pO2 (83-108) mmHg ABG HCO3 (21-25) mmol/L ABG Total CO2 (19-24) mmol/L ABG O2 Saturation (94-97) % ABG Hematocrit (34.0-46.0) % ABG Sodium (135-146) mmol/L ABG Ionized Calcium (4.5-5.3) mg/dL ABG Glucose (75-99) mg/dL ABG Lactic Acid (0.5-1.6) mmol/L Hemoglobin (11.4-16.0) gm/dL Chloride (98-107) mmol/L Glucose (74-99) mg/dL POC Glucose (mg/dL) 135 H 128 H 130 H (75-99) mg/dL Calcium (8.4-10.2) mg/dL Ionized Calcium Gail (4.5-5.3) mg/dL AST (14-36) U/L Alkaline Phosphatase (38-126) U/L Total Protein (6.3-8.2) g/dL Albumin (3.5-5.0) g/dL Arterial Blood Glucose (75-99) mg/dL Crossmatch 10/11/17 10/11/17 10/11/17 Range/Units 04:01 04:31 04:52 WBC (3.8-10.6) k/uL RBC 2.11 L (3.80-5.40) m/uL Hgb 6.1 L* (11.4-16.0) gm/dL Hct 18.4 L* (34.0-46.0) % Plt Count 140 L (150-450) k/uL Lymphocytes # 0.5 L (1.0-4.8) k/uL PT (9.0-12.0) sec INR (<1.2) APTT (22.0-30.0) sec ABG pH (7.35-7.45) ABG pCO2 (35-45) mmHg ABG pO2 (83-108) mmHg ABG HCO3 (21-25) mmol/L ABG Total CO2 (19-24) mmol/L ABG O2 Saturation (94-97) % ABG Hematocrit (34.0-46.0) % ABG Sodium (135-146) mmol/L ABG Ionized Calcium (4.5-5.3) mg/dL ABG Glucose (75-99) mg/dL ABG Lactic Acid (0.5-1.6) mmol/L Hemoglobin (11.4-16.0) gm/dL Chloride (98-107) mmol/L Glucose (74-99) mg/dL POC Glucose (mg/dL) 130 H 130 H (75-99) mg/dL Calcium (8.4-10.2) mg/dL Ionized Calcium Gail (4.5-5.3) mg/dL AST (14-36) U/L Alkaline Phosphatase (38-126) U/L Total Protein (6.3-8.2) g/dL Albumin (3.5-5.0) g/dL Arterial Blood Glucose (75-99) mg/dL Crossmatch 10/11/17 10/11/17 10/11/17 Range/Units 04:52 04:52 06:11 WBC (3.8-10.6) k/uL RBC (3.80-5.40) m/uL Hgb (11.4-16.0) gm/dL Hct (34.0-46.0) % Plt Count (150-450) k/uL Lymphocytes # (1.0-4.8) k/uL PT (9.0-12.0) sec INR 1.2 H (<1.2) APTT 33.0 H (22.0-30.0) sec ABG pH (7.35-7.45) ABG pCO2 (35-45) mmHg ABG pO2 (83-108) mmHg ABG HCO3 (21-25) mmol/L ABG Total CO2 (19-24) mmol/L ABG O2 Saturation (94-97) % ABG Hematocrit (34.0-46.0) % ABG Sodium (135-146) mmol/L ABG Ionized Calcium (4.5-5.3) mg/dL ABG Glucose (75-99) mg/dL ABG Lactic Acid (0.5-1.6) mmol/L Hemoglobin (11.4-16.0) gm/dL Chloride (98-107) mmol/L Glucose 111 H (74-99) mg/dL POC Glucose (mg/dL) 127 H (75-99) mg/dL Calcium 8.0 L (8.4-10.2) mg/dL Ionized Calcium Gail (4.5-5.3) mg/dL AST 49 H (14-36) U/L Alkaline Phosphatase 30 L (38-126) U/L Total Protein 4.8 L (6.3-8.2) g/dL Albumin (3.5-5.0) g/dL Arterial Blood Glucose (75-99) mg/dL Crossmatch 10/11/17 10/11/17 10/11/17 Range/Units 06:52 07:45 09:00 WBC (3.8-10.6) k/uL RBC (3.80-5.40) m/uL Hgb (11.4-16.0) gm/dL Hct (34.0-46.0) % Plt Count (150-450) k/uL Lymphocytes # (1.0-4.8) k/uL PT (9.0-12.0) sec INR (<1.2) APTT (22.0-30.0) sec ABG pH (7.35-7.45) ABG pCO2 (35-45) mmHg ABG pO2 (83-108) mmHg ABG HCO3 (21-25) mmol/L ABG Total CO2 (19-24) mmol/L ABG O2 Saturation (94-97) % ABG Hematocrit (34.0-46.0) % ABG Sodium (135-146) mmol/L ABG Ionized Calcium (4.5-5.3) mg/dL ABG Glucose (75-99) mg/dL ABG Lactic Acid (0.5-1.6) mmol/L Hemoglobin (11.4-16.0) gm/dL Chloride (98-107) mmol/L Glucose (74-99) mg/dL POC Glucose (mg/dL) 115 H 124 H 128 H (75-99) mg/dL Calcium (8.4-10.2) mg/dL Ionized Calcium Gail (4.5-5.3) mg/dL AST (14-36) U/L Alkaline Phosphatase (38-126) U/L Total Protein (6.3-8.2) g/dL Albumin (3.5-5.0) g/dL Arterial Blood Glucose (75-99) mg/dL Crossmatch Microbiology - Last 24 Hours (Table) 10/09/17 04:45 Nasal Screen MRSA/MSSA - Final Nasal Swab Assessment and Plan (1) Coronary artery disease Current Visit: Yes Status: Chronic Code(s): I25.10 - ATHSCL HEART DISEASE OF [place] CORONARY ARTERY W/O ANG PCTRS SNOMED Code(s): 67015565 (2) Family history of coronary artery disease Current Visit: Yes Status: Chronic Code(s): Z82.49 - FAMILY HX OF [place] HEART DIS AND OTH DIS OF THE CIRC SYS SNOMED Code(s): 934186213 (3) Hyperlipidemia Current Visit: Yes Status: Chronic Code(s): E78.5 - HYPERLIPIDEMIA, UNSPECIFIED SNOMED Code(s): 87653480 (4) Hypertension Current Visit: Yes Status: Chronic Code(s): I10 - ESSENTIAL (PRIMARY) HYPERTENSION SNOMED Code(s): 36933951 (5) Hypothyroid Current Visit: Yes Status: Chronic Code(s): E03.9 - HYPOTHYROIDISM, UNSPECIFIED SNOMED Code(s): 17902679 (6) Obesity Current Visit: Yes Status: Acute Code(s): E66.9 - OBESITY, UNSPECIFIED SNOMED Code(s): 522227512 Plan: 1. Continue aspirin, statin, Plavix, subcu heparin, beta rory. Will increase metoprolol tartrate 25 mg by mouth twice a day. 2. Will give IV Lasix 20 mg 1 dose now. 3. Wean O2 as tolerated. Encourage incentive spirometry use 10 times every hour. 4. Bronchodilators per pulmonology, Dr. Aguirre's recommendations. 5. Increase activity, ambulate in room. PT/OT/cardiac rehab consulted. 6. Continue GI/DVT prophylaxis. 7. Will monitor daily labs and x-rays. Transfuse 2 unit of PRBCs now for hemoglobin of 6.1. We will add to her medication regimen oral ferrous sulfate and vitamin C. 8. Pain control with ordered medications. We will discontinue her morphine sulfate and add Toradol 15 mg every 6 hours scheduled. Continue IV acetaminophen for another 24 hours. 9. Insulin management per primary care service. 10. More recommendations to follow based on patient's clinical course. Time with Patient: Greater than 30
[2017-10-11 13:27] LABS: Glucose,Whole Blood 94 mg/dL (75-99)
--- NOTE | 2017-10-11 13:33 | P.PN ---
Subjective Progress Note Date: 10/11/17 Principal diagnosis: Symptomatic multivessel coronary artery disease, status post CABG postoperative day #1 This is a very pleasant 77-year-old female patient who resides most of the year in [facility] and follows with primary care physician there. She has a history of hyperlipidemia, hypertension, hypothyroidism, family history of coronary artery disease. She is a lifelong nonsmoker. No history of asthma. Has not been seen by a integrity analyst in the past. She had presented to [facility] with complaints of anterior chest wall discomfort and heaviness. She also was noting increased dyspnea on minimal exertion. She was quite hypertensive. Chest x-ray showed no acute pulmonary process. CT angiogram ruled out pulmonary embolism and there was some question of mild fibrotic changes. Serial troponins were negative. EKG did not show any acute ST or T wave abnormalities. There was a noted right bundle branch block. She had undergone cardiac catheterization that revealed triple-vessel disease and she was transferred here for further evaluation and treatment. She may be undergoing coronary artery bypass grafting. She is seen today in consultation on the selective care unit. She is awake and alert in no acute distress. She denies any current shortness of breath, cough or congestion. No chills or night sweats. No chest discomfort or palpitations. No lightheadedness or dizziness. She is maintaining good O2 saturations in the 90s on room air. She' s been afebrile. Hemodynamically stable. White count 6.9. Hemoglobin 13.1. Creatinine 0.76. She is currently on a heparin drip. The patient was seen again today 10/10/2017 in the immediate postoperative setting in the intensive care unit. She had undergone a NELSON to the LAD, saphenous vein graft to the OM, saphenous vein graft to the RCA. She is currently intubated and on mechanical ventilator at settings of SIMV of 12, tidal volume 350, 100% FiO2 and a PEEP of 5. Arterial blood gases reveal a P O2 of 212, pCO2 49, pH 7.32. Adjustments will be made. Chest x-ray was reviewed. Right, left, mediastinal chest tubes in place. Currently has a lactated Ringer's at 50 MLS per hour, nitroglycerin drip at 5 mcg/m, propofol at 10 mcg/kg/m, clevidipine at 2 mg per hour. Urine output is adequate. PA pressures 36/20 with a mean of 27. Patient was reevaluated today on 10/11/2017, doing well, extubated last night. Hours after she arrived to the ICU. Had some minor issues with chest tube bleeding, but seems to be corrected now, and she'll be receiving a blood transfusion this morning. WBC count is 6.8 hemoglobin is 7.1, basic metabolic profile is normal. Chest x-ray showed interval extubation, cardiomegaly, and left basilar atelectasis. Objective - Vital Signs Vital signs: Vital Signs Temp 99.3 F 10/11/17 13:24 Pulse 78 10/11/17 13:24 Resp 14 10/11/17 13:24 BP 103/48 10/11/17 13:24 Pulse Ox 97 10/11/17 13:24 Intake & Output 10/10/17 10/11/17 10/11/17 18:59 06:59 18:59 Intake Total 188.285 999.799 731.733 Output Total 4305 1282 515 Balance -4116.715 -282.201 216.733 Weight 77.3 kg 77.3 kg Intake: IV 183 927 414 ACETAMINOPHEN IV (For NPO 100 100 ) 1,000 mg In Empty Bag 1 bag @ 400 mls/hr IVPB Q6HR PRETTY Rx#:[id number] Albumin Human 5% 250 ml 250 In Empty Bag 1 bag @ 250 mls/hr IVPB Q1HR PRN Rx#: [id number] CO/CI 70 110 Lactated Ringers 1,000 ml 150 450 150 @ 20 mls/hr IV .Q24H PRETTY Rx#:[id number] pressure Bag 57 54 Intake, IV Titration 5.285 72.799 7.733 Amount Clevidipine Butyrate 25 43.067 mg In Empty Bag 1 bag @ 1 MG/HR 2 mls/hr IV .Q24H PRETTY Rx#:[id number] Insulin Regular 100 unit 29.732 7.733 In Sodium Chloride 0.9% 100 ml @ Per Protocol IV .Q0M PRETTY Rx#:[id number] Propofol 1,000 mg In 5.285 Empty Bag 1 bag @ Titrate IV .Q0M PRTETY Rx#: [id number] Blood Product 0 310 Rc Pheresis 2 As3 Unit 0 310 [id number] Rc Pheresis As-3 Unit 0 [id number] Output: Chest Tube Drainage 650 552 250 LEFT PLEURAL 280 290 100 MEDIASTINAL 210 210 80 RIGHT PLEURAL 160 52 70 Drainage 40 Left Calf 40 Urine 2615 730 265 Estimated Blood Loss 1000 Other: Voiding Method Indwelling Catheter Indwelling Catheter Indwelling Catheter # Voids 0 ABP, PAP, CO, CI - Last Documented Arterial Blood Pressure 103/51 Pulmonary Artery Pressure 33/18 Cardiac Output 3.1 Cardiac Index 1.8 - Exam Physical Exam: Revealed a 77-year-old female in no distress. Head: Atraumatic, normocephalic. HEENT:[Neck is supple.] [No neck masses.] [No thyromegaly.] [No JVD.] No icterus, PERRLA, EOMI. Chest: [Diminished breath sound bilaterally, no crackles or rhonchi or wheezes.] Cardiac Exam: [Normal S1 and S2, no S3 gallop, no murmur.] Abdomen: [Soft, nontender, no megaly, no rebound, no guarding, normal bowel sounds.] Extremities: [No clubbing, no edema, no cyanosis.] Neurological Exam: [No focal neurologic deficit. Psychiatric: Normal mood affect and mental status examination. Pharynx: No lymphadenopathy.] - Labs CBC & Chem 7: 10/11/17 10:00 10/11/17 04:52 Labs: Abnormal Lab Results - Last 24 Hours (Table) 10/09/17 10/10/17 10/10/17 Range/Units 06:16 08:45 11:12 WBC (3.8-10.6) k/uL RBC (3.80-5.40) m/uL Hgb (11.4-16.0) gm/dL Hct (34.0-46.0) % Plt Count (150-450) k/uL Lymphocytes # (1.0-4.8) k/uL PT (9.0-12.0) sec INR (<1.2) APTT (22.0-30.0) sec ABG pH 7.47 H (7.35-7.45) ABG pCO2 30 L (35-45) mmHg ABG pO2 309 H 127 H (83-108) mmHg ABG HCO3 (21-25) mmol/L ABG Total CO2 25 H (19-24) mmol/L ABG O2 Saturation 99.9 H 100.0 H (94-97) % ABG Hematocrit (34.0-46.0) % ABG Sodium 167 H* (135-146) mmol/L ABG Ionized Calcium (4.5-5.3) mg/dL ABG Glucose 115 H 133 H (75-99) mg/dL ABG Lactic Acid (0.5-1.6) mmol/L Hemoglobin (11.4-16.0) gm/dL Chloride (98-107) mmol/L Glucose (74-99) mg/dL POC Glucose (mg/dL) (75-99) mg/dL Calcium (8.4-10.2) mg/dL Ionized Calcium Gail (4.5-5.3) mg/dL AST (14-36) U/L Alkaline Phosphatase (38-126) U/L Total Protein (6.3-8.2) g/dL Albumin (3.5-5.0) g/dL Arterial Blood Glucose 115 H 133 H (75-99) mg/dL Crossmatch See Detail 10/10/17 10/10/17 10/10/17 Range/Units 11:14 12:17 12:49 WBC (3.8-10.6) k/uL RBC (3.80-5.40) m/uL Hgb (11.4-16.0) gm/dL Hct (34.0-46.0) % Plt Count (150-450) k/uL Lymphocytes # (1.0-4.8) k/uL PT (9.0-12.0) sec INR (<1.2) APTT (22.0-30.0) sec ABG pH 7.33 L (7.35-7.45) ABG pCO2 46 H (35-45) mmHg ABG pO2 129 H 392 H 370 H (83-108) mmHg ABG HCO3 (21-25) mmol/L ABG Total CO2 26 H 26 H 25 H (19-24) mmol/L ABG O2 Saturation 98.8 H 100.0 H 100.0 H (94-97) % ABG Hematocrit 24 L 23 L (34.0-46.0) % ABG Sodium (135-146) mmol/L ABG Ionized Calcium 4.0 L 4.0 L (4.5-5.3) mg/dL ABG Glucose 134 H 200 H 238 H (75-99) mg/dL ABG Lactic Acid 2.0 H 2.9 H* (0.5-1.6) mmol/L Hemoglobin 11.3 L 7.7 L 7.4 L (11.4-16.0) gm/dL Chloride (98-107) mmol/L Glucose (74-99) mg/dL POC Glucose (mg/dL) (75-99) mg/dL Calcium (8.4-10.2) mg/dL Ionized Calcium Gail (4.5-5.3) mg/dL AST (14-36) U/L Alkaline Phosphatase (38-126) U/L Total Protein (6.3-8.2) g/dL Albumin (3.5-5.0) g/dL Arterial Blood Glucose 134 H 200 H 238 H (75-99) mg/dL Crossmatch 10/10/17 10/10/17 10/10/17 Range/Units 13:16 14:32 14:32 WBC (3.8-10.6) k/uL RBC (3.80-5.40) m/uL Hgb (11.4-16.0) gm/dL Hct (34.0-46.0) % Plt Count (150-450) k/uL Lymphocytes # (1.0-4.8) k/uL PT (9.0-12.0) sec INR (<1.2) APTT (22.0-30.0) sec ABG pH 7.34 L (7.35-7.45) ABG pCO2 (35-45) mmHg ABG pO2 >420 H 241 H (83-108) mmHg ABG HCO3 (21-25) mmol/L ABG Total CO2 25 H 25 H (19-24) mmol/L ABG O2 Saturation 100.0 H 98.1 H 99.7 H (94-97) % ABG Hematocrit 22 L 22 L 21 L (34.0-46.0) % ABG Sodium (135-146) mmol/L ABG Ionized Calcium 4.2 L 3.8 L 3.7 L (4.5-5.3) mg/dL ABG Glucose 196 H 159 H 130 H (75-99) mg/dL ABG Lactic Acid 4.2 H* 4.1 H* 3.6 H* (0.5-1.6) mmol/L Hemoglobin 7.2 L 7.2 L 6.8 L* (11.4-16.0) gm/dL Chloride (98-107) mmol/L Glucose (74-99) mg/dL POC Glucose (mg/dL) (75-99) mg/dL Calcium (8.4-10.2) mg/dL Ionized Calcium Gail (4.5-5.3) mg/dL AST (14-36) U/L Alkaline Phosphatase (38-126) U/L Total Protein (6.3-8.2) g/dL Albumin (3.5-5.0) g/dL Arterial Blood Glucose 196 H 159 H 130 H (75-99) mg/dL Crossmatch 10/10/17 10/10/17 10/10/17 Range/Units 15:28 15:30 15:30 WBC 3.0 L (3.8-10.6) k/uL RBC 2.38 L (3.80-5.40) m/uL Hgb 7.0 L* D (11.4-16.0) gm/dL Hct 20.6 L (34.0-46.0) % Plt Count 89 L D (150-450) k/uL Lymphocytes # 0.5 L (1.0-4.8) k/uL PT (9.0-12.0) sec INR (<1.2) APTT (22.0-30.0) sec ABG pH (7.35-7.45) ABG pCO2 (35-45) mmHg ABG pO2 (83-108) mmHg ABG HCO3 (21-25) mmol/L ABG Total CO2 (19-24) mmol/L ABG O2 Saturation (94-97) % ABG Hematocrit (34.0-46.0) % ABG Sodium (135-146) mmol/L ABG Ionized Calcium (4.5-5.3) mg/dL ABG Glucose (75-99) mg/dL ABG Lactic Acid (0.5-1.6) mmol/L Hemoglobin (11.4-16.0) gm/dL Chloride 108 H (98-107) mmol/L Glucose 105 H (74-99) mg/dL POC Glucose (mg/dL) 113 H (75-99) mg/dL Calcium 7.2 L (8.4-10.2) mg/dL Ionized Calcium Gail 4.3 L (4.5-5.3) mg/dL AST 44 H (14-36) U/L Alkaline Phosphatase 26 L (38-126) U/L Total Protein 4.6 L (6.3-8.2) g/dL Albumin 3.4 L (3.5-5.0) g/dL Arterial Blood Glucose (75-99) mg/dL Crossmatch 10/10/17 10/10/17 10/10/17 Range/Units 15:30 15:46 17:45 WBC (3.8-10.6) k/uL RBC 2.74 L (3.80-5.40) m/uL Hgb 7.9 L (11.4-16.0) gm/dL Hct 23.9 L (34.0-46.0) % Plt Count 116 L (150-450) k/uL Lymphocytes # 0.7 L (1.0-4.8) k/uL PT 12.1 H (9.0-12.0) sec INR 1.3 H (<1.2) APTT 37.4 H (22.0-30.0) sec ABG pH 7.33 L (7.35-7.45) ABG pCO2 49 H (35-45) mmHg ABG pO2 212 H (83-108) mmHg ABG HCO3 26 H (21-25) mmol/L ABG Total CO2 27 H (19-24) mmol/L ABG O2 Saturation 99.8 H (94-97) % ABG Hematocrit (34.0-46.0) % ABG Sodium (135-146) mmol/L ABG Ionized Calcium (4.5-5.3) mg/dL ABG Glucose (75-99) mg/dL ABG Lactic Acid (0.5-1.6) mmol/L Hemoglobin (11.4-16.0) gm/dL Chloride (98-107) mmol/L Glucose (74-99) mg/dL POC Glucose (mg/dL) (75-99) mg/dL Calcium (8.4-10.2) mg/dL Ionized Calcium Gail (4.5-5.3) mg/dL AST (14-36) U/L Alkaline Phosphatase (38-126) U/L Total Protein (6.3-8.2) g/dL Albumin (3.5-5.0) g/dL Arterial Blood Glucose (75-99) mg/dL Crossmatch 10/10/17 10/10/17 10/10/17 Range/Units 17:50 19:46 20:06 WBC (3.8-10.6) k/uL RBC (3.80-5.40) m/uL Hgb (11.4-16.0) gm/dL Hct (34.0-46.0) % Plt Count (150-450) k/uL Lymphocytes # (1.0-4.8) k/uL PT (9.0-12.0) sec INR (<1.2) APTT (22.0-30.0) sec ABG pH (7.35-7.45) ABG pCO2 (35-45) mmHg ABG pO2 (83-108) mmHg ABG HCO3 (21-25) mmol/L ABG Total CO2 (19-24) mmol/L ABG O2 Saturation (94-97) % ABG Hematocrit (34.0-46.0) % ABG Sodium (135-146) mmol/L ABG Ionized Calcium (4.5-5.3) mg/dL ABG Glucose (75-99) mg/dL ABG Lactic Acid (0.5-1.6) mmol/L Hemoglobin (11.4-16.0) gm/dL Chloride (98-107) mmol/L Glucose (74-99) mg/dL POC Glucose (mg/dL) 183 H 175 H 173 H (75-99) mg/dL Calcium (8.4-10.2) mg/dL Ionized Calcium Gail (4.5-5.3) mg/dL AST (14-36) U/L Alkaline Phosphatase (38-126) U/L Total Protein (6.3-8.2) g/dL Albumin (3.5-5.0) g/dL Arterial Blood Glucose (75-99) mg/dL Crossmatch 10/10/17 10/10/17 10/10/17 Range/Units 20:15 20:50 20:51 WBC (3.8-10.6) k/uL RBC 2.47 L (3.80-5.40) m/uL Hgb 7.2 L (11.4-16.0) gm/dL Hct 21.7 L (34.0-46.0) % Plt Count 146 L (150-450) k/uL Lymphocytes # 0.4 L (1.0-4.8) k/uL PT (9.0-12.0) sec INR (<1.2) APTT (22.0-30.0) sec ABG pH (7.35-7.45) ABG pCO2 (35-45) mmHg ABG pO2 67 L (83-108) mmHg ABG HCO3 (21-25) mmol/L ABG Total CO2 25 H (19-24) mmol/L ABG O2 Saturation (94-97) % ABG Hematocrit (34.0-46.0) % ABG Sodium (135-146) mmol/L ABG Ionized Calcium (4.5-5.3) mg/dL ABG Glucose (75-99) mg/dL ABG Lactic Acid (0.5-1.6) mmol/L Hemoglobin (11.4-16.0) gm/dL Chloride (98-107) mmol/L Glucose (74-99) mg/dL POC Glucose (mg/dL) 168 H (75-99) mg/dL Calcium (8.4-10.2) mg/dL Ionized Calcium Gail (4.5-5.3) mg/dL AST (14-36) U/L Alkaline Phosphatase (38-126) U/L Total Protein (6.3-8.2) g/dL Albumin (3.5-5.0) g/dL Arterial Blood Glucose (75-99) mg/dL Crossmatch 10/10/17 10/10/17 10/11/17 Range/Units 21:59 22:48 00:04 WBC (3.8-10.6) k/uL RBC (3.80-5.40) m/uL Hgb (11.4-16.0) gm/dL Hct (34.0-46.0) % Plt Count (150-450) k/uL Lymphocytes # (1.0-4.8) k/uL PT (9.0-12.0) sec INR (<1.2) APTT (22.0-30.0) sec ABG pH (7.35-7.45) ABG pCO2 (35-45) mmHg ABG pO2 (83-108) mmHg ABG HCO3 (21-25) mmol/L ABG Total CO2 (19-24) mmol/L ABG O2 Saturation (94-97) % ABG Hematocrit (34.0-46.0) % ABG Sodium (135-146) mmol/L ABG Ionized Calcium (4.5-5.3) mg/dL ABG Glucose (75-99) mg/dL ABG Lactic Acid (0.5-1.6) mmol/L Hemoglobin (11.4-16.0) gm/dL Chloride (98-107) mmol/L Glucose (74-99) mg/dL POC Glucose (mg/dL) 156 H 136 H 140 H (75-99) mg/dL Calcium (8.4-10.2) mg/dL Ionized Calcium Gail (4.5-5.3) mg/dL AST (14-36) U/L Alkaline Phosphatase (38-126) U/L Total Protein (6.3-8.2) g/dL Albumin (3.5-5.0) g/dL Arterial Blood Glucose (75-99) mg/dL Crossmatch 10/11/17 10/11/17 10/11/17 Range/Units 01:06 01:57 03:00 WBC (3.8-10.6) k/uL RBC (3.80-5.40) m/uL Hgb (11.4-16.0) gm/dL Hct (34.0-46.0) % Plt Count (150-450) k/uL Lymphocytes # (1.0-4.8) k/uL PT (9.0-12.0) sec INR (<1.2) APTT (22.0-30.0) sec ABG pH (7.35-7.45) ABG pCO2 (35-45) mmHg ABG pO2 (83-108) mmHg ABG HCO3 (21-25) mmol/L ABG Total CO2 (19-24) mmol/L ABG O2 Saturation (94-97) % ABG Hematocrit (34.0-46.0) % ABG Sodium (135-146) mmol/L ABG Ionized Calcium (4.5-5.3) mg/dL ABG Glucose (75-99) mg/dL ABG Lactic Acid (0.5-1.6) mmol/L Hemoglobin (11.4-16.0) gm/dL Chloride (98-107) mmol/L Glucose (74-99) mg/dL POC Glucose (mg/dL) 135 H 128 H 130 H (75-99) mg/dL Calcium (8.4-10.2) mg/dL Ionized Calcium Gail (4.5-5.3) mg/dL AST (14-36) U/L Alkaline Phosphatase (38-126) U/L Total Protein (6.3-8.2) g/dL Albumin (3.5-5.0) g/dL Arterial Blood Glucose (75-99) mg/dL Crossmatch 10/11/17 10/11/17 10/11/17 Range/Units 04:01 04:31 04:52 WBC (3.8-10.6) k/uL RBC 2.11 L (3.80-5.40) m/uL Hgb 6.1 L* (11.4-16.0) gm/dL Hct 18.4 L* (34.0-46.0) % Plt Count 140 L (150-450) k/uL Lymphocytes # 0.5 L (1.0-4.8) k/uL PT (9.0-12.0) sec INR (<1.2) APTT (22.0-30.0) sec ABG pH (7.35-7.45) ABG pCO2 (35-45) mmHg ABG pO2 (83-108) mmHg ABG HCO3 (21-25) mmol/L ABG Total CO2 (19-24) mmol/L ABG O2 Saturation (94-97) % ABG Hematocrit (34.0-46.0) % ABG Sodium (135-146) mmol/L ABG Ionized Calcium (4.5-5.3) mg/dL ABG Glucose (75-99) mg/dL ABG Lactic Acid (0.5-1.6) mmol/L Hemoglobin (11.4-16.0) gm/dL Chloride (98-107) mmol/L Glucose (74-99) mg/dL POC Glucose (mg/dL) 130 H 130 H (75-99) mg/dL Calcium (8.4-10.2) mg/dL Ionized Calcium Gail (4.5-5.3) mg/dL AST (14-36) U/L Alkaline Phosphatase (38-126) U/L Total Protein (6.3-8.2) g/dL Albumin (3.5-5.0) g/dL Arterial Blood Glucose (75-99) mg/dL Crossmatch 10/11/17 10/11/17 10/11/17 Range/Units 04:52 04:52 06:11 WBC (3.8-10.6) k/uL RBC (3.80-5.40) m/uL Hgb (11.4-16.0) gm/dL Hct (34.0-46.0) % Plt Count (150-450) k/uL Lymphocytes # (1.0-4.8) k/uL PT (9.0-12.0) sec INR 1.2 H (<1.2) APTT 33.0 H (22.0-30.0) sec ABG pH (7.35-7.45) ABG pCO2 (35-45) mmHg ABG pO2 (83-108) mmHg ABG HCO3 (21-25) mmol/L ABG Total CO2 (19-24) mmol/L ABG O2 Saturation (94-97) % ABG Hematocrit (34.0-46.0) % ABG Sodium (135-146) mmol/L ABG Ionized Calcium (4.5-5.3) mg/dL ABG Glucose (75-99) mg/dL ABG Lactic Acid (0.5-1.6) mmol/L Hemoglobin (11.4-16.0) gm/dL Chloride (98-107) mmol/L Glucose 111 H (74-99) mg/dL POC Glucose (mg/dL) 127 H (75-99) mg/dL Calcium 8.0 L (8.4-10.2) mg/dL Ionized Calcium Gail (4.5-5.3) mg/dL AST 49 H (14-36) U/L Alkaline Phosphatase 30 L (38-126) U/L Total Protein 4.8 L (6.3-8.2) g/dL Albumin (3.5-5.0) g/dL Arterial Blood Glucose (75-99) mg/dL Crossmatch 10/11/17 10/11/17 10/11/17 Range/Units 06:52 07:45 09:00 WBC (3.8-10.6) k/uL RBC (3.80-5.40) m/uL Hgb (11.4-16.0) gm/dL Hct (34.0-46.0) % Plt Count (150-450) k/uL Lymphocytes # (1.0-4.8) k/uL PT (9.0-12.0) sec INR (<1.2) APTT (22.0-30.0) sec ABG pH (7.35-7.45) ABG pCO2 (35-45) mmHg ABG pO2 (83-108) mmHg ABG HCO3 (21-25) mmol/L ABG Total CO2 (19-24) mmol/L ABG O2 Saturation (94-97) % ABG Hematocrit (34.0-46.0) % ABG Sodium (135-146) mmol/L ABG Ionized Calcium (4.5-5.3) mg/dL ABG Glucose (75-99) mg/dL ABG Lactic Acid (0.5-1.6) mmol/L Hemoglobin (11.4-16.0) gm/dL Chloride (98-107) mmol/L Glucose (74-99) mg/dL POC Glucose (mg/dL) 115 H 124 H 128 H (75-99) mg/dL Calcium (8.4-10.2) mg/dL Ionized Calcium Gail (4.5-5.3) mg/dL AST (14-36) U/L Alkaline Phosphatase (38-126) U/L Total Protein (6.3-8.2) g/dL Albumin (3.5-5.0) g/dL Arterial Blood Glucose (75-99) mg/dL Crossmatch 10/11/17 10/11/17 Range/Units 09:57 10:00 WBC (3.8-10.6) k/uL RBC 2.45 L (3.80-5.40) m/uL Hgb 7.1 L (11.4-16.0) gm/dL Hct 21.4 L (34.0-46.0) % Plt Count 148 L (150-450) k/uL Lymphocytes # 0.7 L (1.0-4.8) k/uL PT (9.0-12.0) sec INR (<1.2) APTT (22.0-30.0) sec ABG pH (7.35-7.45) ABG pCO2 (35-45) mmHg ABG pO2 (83-108) mmHg ABG HCO3 (21-25) mmol/L ABG Total CO2 (19-24) mmol/L ABG O2 Saturation (94-97) % ABG Hematocrit (34.0-46.0) % ABG Sodium (135-146) mmol/L ABG Ionized Calcium (4.5-5.3) mg/dL ABG Glucose (75-99) mg/dL ABG Lactic Acid (0.5-1.6) mmol/L Hemoglobin (11.4-16.0) gm/dL Chloride (98-107) mmol/L Glucose (74-99) mg/dL POC Glucose (mg/dL) 120 H (75-99) mg/dL Calcium (8.4-10.2) mg/dL Ionized Calcium Gail (4.5-5.3) mg/dL AST (14-36) U/L Alkaline Phosphatase (38-126) U/L Total Protein (6.3-8.2) g/dL Albumin (3.5-5.0) g/dL Arterial Blood Glucose (75-99) mg/dL Crossmatch Microbiology - Last 24 Hours (Table) 10/09/17 04:45 Nasal Screen MRSA/MSSA - Final Nasal Swab Assessment and Plan Assessment: #1 Coronary artery disease, status post coronary artery bypass grafting utilizing a NELSON to the LAD, saphenous vein grafts to the OM and RCA. Postoperative day #1 #2 Hypertension. #3 Hyperlipidemia. #4 Hypothyroidism. #5 expected left lower lobe atelectasis as noted on the chest x-ray, no evidence of pneumonia. Recommendation: Continue present supportive care measures, incentive spirometry , early ambulation, bronchodilators, will follow. Time with Patient: Less than 30
[2017-10-11] MEDS ORDERED: BISACODYL 10 MG SUPP RECTAL PRN (14:46)
[2017-10-11] MEDS ORDERED: MAGNESIUM HYDROXIDE 2,400 MG/10 ML CUP PO PRN (14:46)
[2017-10-11 15:11] LABS: Glucose,Whole Blood 84 mg/dL (75-99)
[2017-10-11] MEDS ORDERED: DOPamine DRIP 800 MG in DEXTROSE/WATER 1 500ML.BAG IV SCH (15:30)
[2017-10-11 16:31] LABS: HCT 23.6 % (34.0-46.0); HGB 8.1 gm/dL (11.4-16.0); MCH 29.5 pg (25.0-35.0); MCHC 34.2 g/dL (31.0-37.0); MCV 86.2 fL (80.0-100.0); Mean Platelet Volume 7.8; Platelet Count 108 k/uL (150-450); RBC 2.74 m/uL (3.80-5.40); RDW 13.6 % (11.5-15.5); WBC 6.4 k/uL (3.8-10.6)
[2017-10-11 16:57] LABS: Glucose,Whole Blood 98 mg/dL (75-99)
[2017-10-11] MEDS: MILRINONE-D5W PMX 20 MG in DEXTROSE/WATER 1 100ML.BAG IV SCH (17:04)
[2017-10-11] MEDS ORDERED: DEXTROSE 5% IN WATER 100 ML with AMIODARONE 150 MG IV ONE ×2 (17:45→23:08)
[2017-10-11 18:13] LABS: Glucose,Whole Blood 131 mg/dL (75-99)
[2017-10-11] MEDS: AMIODARONE 450 MG in DEXTROSE 5% IN WATER 250 ML IV SCH ×2 (18:13)
[2017-10-11 19:22] LABS: Glucose,Whole Blood 125 mg/dL (75-99)
[2017-10-11 20:12] LABS: Glucose,Whole Blood 117 mg/dL (75-99)
[2017-10-11] MEDS: SENNOSIDES-DOCUSATE SODIUM 1 EACH TAB PO SCH (20:49)
[2017-10-11 22:14] LABS: Glucose,Whole Blood 116 mg/dL (75-99)
[2017-10-11 23:12] LABS: Glucose,Whole Blood 113 mg/dL (75-99)
--- NOTE | 2017-10-11 23:38 | PN ---
PROGRESS NOTE SUBJECTIVE: A 77-year-old, status post CABG, postop day 1, multivessel coronary artery disease, hypertension, dyslipidemia, hypothyroidism, lifelong nonsmoker. No light-headedness, dizziness. Awake, alert and oriented. White count 6.9, hemoglobin is 13.1. Creatinine 0.76. Heparin drip. She is doing fine at this time. She is up sitting in a chair, talking. She was given 2 units of blood for low hemoglobin, some dopamine for increased fluid build up to the IV drip. CARDIOVASCULAR: S1, S2. LUNGS: Transmitted upper airway sounds. PSYCH: Fair mood and affect. NEUROLOGIC: Alert and oriented x3. ASSESSMENT: 1. Status post bypass. 2. Severe anemia. 3. Blood transfusion. 4. Fluid overload. Will give some dopamine. Monitor her closely. Transfuse if hemoglobin does not come up. In the ICU 20 minutes. MESERETL / GETN: [id number] /
[2017-10-12] MEDS: KETOROLAC 30 MG/ML 1 ML VIAL IVP SCH ×5 (00:04→23:59)
[2017-10-12] MEDS: HEPARIN SODIUM,PORCINE 5,000 UNIT/ML 1 ML VIAL SQ SCH ×4 (00:05→23:59)
[2017-10-12 00:15] LABS: Glucose,Whole Blood 182 mg/dL (75-99)
[2017-10-12] MEDS: AMIODARONE 450 MG in DEXTROSE 5% IN WATER 250 ML IV SCH ×4 (01:02→02:10)
[2017-10-12 01:07] LABS: Glucose,Whole Blood 151 mg/dL (75-99)
[2017-10-12] MEDS: METOCLOPRAMIDE 5 MG/ML 2 ML VIAL IVP PRN (02:13)
[2017-10-12 02:22] LABS: Glucose,Whole Blood 131 mg/dL (75-99)
[2017-10-12 03:15] LABS: Glucose,Whole Blood 127 mg/dL (75-99)
[2017-10-12] MEDS: ALBUMIN HUMAN 5% 250 ML in EMPTY BAG 1 BAG IVPB PRN (03:15)
[2017-10-12 04:18] LABS: Glucose,Whole Blood 135 mg/dL (75-99)
[2017-10-12 04:34] LABS: Basophils % (A) 0 %; Eosinophils # (A) 0.1 k/uL (0-0.7); Eosinophils % (A) 1 %; HCT 21.5 % (34.0-46.0); HGB 7.4 gm/dL (11.4-16.0); Lymphocytes # (A) 0.7 k/uL (1.0-4.8); Lymphocytes % (A) 11 %; MCH 29.8 pg (25.0-35.0); MCHC 34.5 g/dL (31.0-37.0); MCV 86.4 fL (80.0-100.0); Mean Platelet Volume 8.2; Monocytes # (A) 0.4 k/uL (0-1.0); Monocytes % (A) 6 %; Neutrophils # (A) 5.5 k/uL (1.3-7.7); Neutrophils % (A) 81 %; Platelet Count 100 k/uL (150-450); RBC 2.49 m/uL (3.80-5.40); RDW 13.7 % (11.5-15.5); WBC 6.8 k/uL (3.8-10.6)
[2017-10-12 04:47] LABS: Ionized Calcium 4.9 mg/dL (4.5-5.3)
[2017-10-12 04:57] LABS: Albumin 3.5 g/dL (3.5-5.0); Calcium 8.5 mg/dL (8.4-10.2); Magnesium 2.2 mg/dL (1.6-2.3); Potassium 3.7 mmol/L (3.5-5.1)
[2017-10-12] MEDS: CLEVIDIPINE BUTYRATE 25 MG in EMPTY BAG 1 BAG IV SCH ×3 (05:17→20:14)
[2017-10-12 05:18] LABS: Glucose,Whole Blood 129 mg/dL (75-99)
[2017-10-12] MEDS: ACETAMINOPHEN IV (For NPO) 1,000 MG in EMPTY BAG 1 BAG IVPB SCH ×3 (06:19→18:58)
[2017-10-12] MEDS: PANTOPRAZOLE 40 MG TABLET PO SCH (06:19)
[2017-10-12] MEDS: LEVOTHYROXINE 100 MCG TAB PO SCH (06:19)
--- NOTE | 2017-10-12 07:07 | XR ---
EXAMINATION TYPE: XR chest 1V portable DATE OF EXAM: 10/12/2017 HISTORY: Post Operative Cardiac Surgery. REFERENCE: Previous study dated 10/11/2017. FINDINGS: There has been a midline sternotomy. There has been internal fixation of the right clavicle . There is a right pleural drain in place and also left pleural drain. There is a Perry-Thaddeus catheter in place via a right internal jugular approach. Its tip is in the pulmonary outflow tract. The heart is enlarged. There is bibasilar airspace disease either representing atelectasis or consoli dation. This is similar to the previous study. IMPRESSION: NO SIGNIFICANT INTERVAL CHANGE IN THE APPEARANCE OF THE CHEST.
[2017-10-12 07:28] LABS: Glucose,Whole Blood 122 mg/dL (75-99)
[2017-10-12] MEDS: IPRATROPIUM-ALBUTEROL 3 ML NEB INHALATION SCH ×4 (07:46→19:59)
[2017-10-12] MEDS ORDERED: FUROSEMIDE 10 MG/ML 2 ML VIAL IV ONE (08:07)
[2017-10-12] MEDS ORDERED: FUROSEMIDE 10 MG/ML 2 ML VIAL IV STA (08:13)
[2017-10-12] MEDS ORDERED: ACETAMINOPHEN TAB 500 MG TAB PO PRN ×2 (08:41→23:59)
[2017-10-12] MEDS: MILRINONE-D5W PMX 20 MG in DEXTROSE/WATER 1 100ML.BAG IV SCH (08:43)
[2017-10-12] MEDS: METOPROLOL TARTRATE 25 MG TAB PO SCH ×2 (08:45→21:02)
[2017-10-12] MEDS ORDERED: POTASSIUM CHLORIDE ER 20 MEQ TAB.ER PO SCH ×3 (09:00→22:00)
[2017-10-12] MEDS: ASPIRIN 325 MG TAB PO SCH (09:20)
[2017-10-12] MEDS: AMIODARONE 200 MG TAB PO SCH ×2 (09:20→20:20)
[2017-10-12] MEDS: ATORVASTATIN 40 MG TAB PO SCH (09:21)
[2017-10-12] MEDS: MUPIROCIN 2% OINT 22 GM TUBE NASAL SCH ×2 (09:21→20:20)
[2017-10-12] MEDS: CLOPIDOGREL 75 MG TAB PO SCH (09:21)
[2017-10-12] MEDS: LOSARTAN 50 MG TAB PO SCH (09:26)
[2017-10-12 09:41] LABS: Glucose,Whole Blood 159 mg/dL (75-99)
--- NOTE | 2017-10-12 10:37 | P.PN ---
Subjective Progress Note Date: 10/12/17 Principal diagnosis: Symptomatic multivessel coronary artery disease, preserved left ventricular function, poorly controlled hypertension, hyperlipidemia, hypothyroid, obesity, and a strong family history of coronary artery disease. POD #2 triple coronary artery bypass grafting using the left internal mammary artery to the left anterior descending coronary artery, reverse greater saphenous vein graft from the aorta to the obtuse marginal coronary artery, reverse greater saphenous vein graft from the aorta to the right coronary artery. Endoscopic harvesting of the left greater saphenous vein. Intraoperative transesophageal echocardiogram and epi-aortic scanning. Intraoperative graft flow measurements using the [employer] system. Postoperative normocytic, normochromic anemia, an expected outcome of surgery secondary to hemodilution and bypass pump use. Postoperative paroxysmal atrial fibrillation, an unexpected but potential outcome of surgery. Patient is sitting up to the bedside chair. She is in no acute distress. Complaining of pain 4 out of 10 on the pain scale to her chest tube insertion sites. Denies any complaints of shortness of breath other her bedside oxygen saturation are 93% on 15 L high flow nasal cannula. She is alert and oriented 3. She is achieving 500 mL on her incentive spirometry. Patient had an episode of paroxysmal atrial fibrillation yesterday evening, currently the patient is in normal sinus rhythm with bedside telemetry showing normal sinus rhythm heart rate 83. Objective - Vital Signs Vital signs: Vital Signs Temp 99.5 F 10/11/17 16:00 Pulse 81 10/12/17 07:50 Resp 27 H 10/12/17 06:45 BP 116/55 10/11/17 13:58 Pulse Ox 93 L 10/12/17 06:45 Intake & Output 10/11/17 10/12/17 10/12/17 18:59 06:59 18:59 Intake Total 8562.090 2393.360 79.178 Output Total 820 707 Balance 371.709 8493.360 79.178 Weight 77.3 kg Intake: IV 828.2 1469.9 ACETAMINOPHEN IV (For NPO 200 200 ) 1,000 mg In Empty Bag 1 bag @ 400 mls/hr IVPB Q6HR [facility] Rx#:[id number] Albumin Human 5% 250 ml 250 In Empty Bag 1 bag @ 250 mls/hr IVPB Q1HR PRN Rx#: [id number] Amiodarone 450 mg In 266.7 Dextrose 5% in Water 250 ml @ 0.5 MG/MIN 17.26 mls /hr IV .Q15H1M [facility] Rx#: [id number] CO/CI 170 96 Dextrose 5% in Water 100 100 ml @ 618 mls/hr IV .Q10M ONE with Amiodarone 150 mg Rx#:[id number] Lactated Ringers 1,000 ml 250 460 @ 20 mls/hr IV .Q24H [facility] Rx#:[id number] Milrinone-D5w Pmx 20 mg 50.6 In Dextrose/Water 1 100ml .bag @ 0.2 MCG/KG/MIN 4. 63 mls/hr IV .[id number] [facility] Rx#:[id number] Primacor 9.2 4.6 amioadarone bolus 100 pressure Bag 99 42 Intake, IV Titration 11.616 246.460 79.178 Amount Amiodarone 450 mg In 235.38 Dextrose 5% in Water 250 ml @ 0.5 MG/MIN 17.26 mls /hr IV .Q15H1M [facility] Rx#: [id number] Clevidipine Butyrate 25 0.633 mg In Empty Bag 1 bag @ 1 MG/HR 2 mls/hr IV .Q24H [facility] Rx#:[id number] DOPamine DRIP 800 mg In 3.883 Dextrose/Water 1 500ml. bag @ 1.5 MCG/KG/MIN 4.34 mls/hr IV .Q24H [facility] Rx#: [id number] Insulin Regular 100 unit 7.733 10.447 6.718 In Sodium Chloride 0.9% 100 ml @ Per Protocol IV .Q0M [facility] Rx#:[id number] Milrinone-D5w Pmx 20 mg 72.46 In Dextrose/Water 1 100ml .bag @ 0.2 MCG/KG/MIN 4. 63 mls/hr IV .[id number] [facility] Rx#:[id number] Oral 30 Blood Product 620 Rc Pheresis 2 As3 Unit 310 [id number] Rc Pheresis As-3 Unit 310 [id number] Output: Chest Tube Drainage 360 310 LEFT PLEURAL 140 120 MEDIASTINAL 120 110 RIGHT PLEURAL 100 80 Drainage 70 60 Left Calf 70 60 Urine 390 337 Other: Voiding Method Indwelling Catheter Indwelling Catheter ABP, PAP, CO, CI - Last Documented Arterial Blood Pressure 132/52 Pulmonary Artery Pressure 38/19 Cardiac Output 3.7 Cardiac Index 2.2 - Constitutional General appearance: Present: cooperative, no acute distress, obese - Respiratory Details: Lung sounds essentially clear to her bilateral upper lobes, diminished to her bilateral bases with few scattered crackles. Respirations are symmetrical and nonlabored. Oxygen saturation are 93% on 15 L high flow nasal cannula. She is achieving 500 mL on her incentive spirometry. Mediastinal, left and right pleural chest tubes remained to low continuous wall suction -20 cm H2O. No air leak is present. Her chest tubes are draining thin serosanguineous drainage. Mediastinal chest tube drained 230 mL in 24 hours, 90 mL in the last 8 hours. Left pleural chest tube drained 260 mL in the last 24 hours, 100 mL output the last 8 hours. Right pleural chest tube drained 180 mL in the last 24 hours, 60 mL in the last 8 hours. - Cardiovascular Details: Regular rhythm and rate. S1 and S2 present, negative for S3, gallop or murmur. Sternum is stable. Heart hugger is in place and she is demonstrating appropriate use. Bedside telemetry showing normal sinus rhythm heart rate 83. +1 edema to her bilateral lower extremities. Knee-high MARILIN hose and sequential compression devices in place to bilateral lower extremities. Atrial and ventricular epicardial pacemaker wires in place and grounded. Right IJ Cordis and [place]-Thaddeus catheter in place and functioning. Current cardiac output is 3.7 , cardiac index 2.2, PA pressures 37/18, CVP pressure of 17 mmHg. - Gastrointestinal Gastrointestinal Comment(s): Abdomen is soft, nontender nondistended. Active bowel sounds all 4 abdominal quadrants. Tolerating oral intake. Passing flatus. No guarding or rigidity. No organomegaly. - Genitourinary Genitourinary Comment(s): Greco catheter for accurate I&O. Draining clear yellow urine. 250 mL output in the last 8 hours. - Integumentary Integumentary Comment(s): Skin is warm and dry. No clubbing or cyanosis present. Midline sternal incision clean dry and approximated. No drainage or redness present. Left leg EVH site clean dry and approximated. Ecchymotic area to her medial left thigh. Soft and nontender to touch. Left leg MIGUEL ÁNGEL drain in place draining thin serosanguineous drainage. 60 mL output in the last 8 hours. - Neurologic Neurologic Comment(s): No focal deficits. Neurologic: Present: CNII-XII intact - Musculoskeletal Musculoskeletal: Present: gait normal, strength equal bilaterally - Psychiatric Psychiatric: Present: A&O x's 3, appropriate affect, intact judgment & insight - Allied health notes Allied health notes reviewed: nursing - Labs CBC & Chem 7: 10/12/17 04:20 10/12/17 04:20 Labs: Abnormal Lab Results - Last 24 Hours (Table) 10/09/17 10/11/17 10/11/17 Range/Units 06:16 10:00 16:20 RBC 2.45 L 2.74 L (3.80-5.40) m/uL Hgb 7.1 L 8.1 L (11.4-16.0) gm/dL Hct 21.4 L 23.6 L (34.0-46.0) % Plt Count 148 L 108 L (150-450) k/uL Lymphocytes # 0.7 L (1.0-4.8) k/uL BUN (7-17) mg/dL Glucose (74-99) mg/dL POC Glucose (mg/dL) (75-99) mg/dL AST (14-36) U/L ALT (9-52) U/L Total Protein (6.3-8.2) g/dL Crossmatch See Detail 10/11/17 10/11/17 10/11/17 Range/Units 18:12 19:21 20:10 RBC (3.80-5.40) m/uL Hgb (11.4-16.0) gm/dL Hct (34.0-46.0) % Plt Count (150-450) k/uL Lymphocytes # (1.0-4.8) k/uL BUN (7-17) mg/dL Glucose (74-99) mg/dL POC Glucose (mg/dL) 131 H 125 H 117 H (75-99) mg/dL AST (14-36) U/L ALT (9-52) U/L Total Protein (6.3-8.2) g/dL Crossmatch 10/11/17 10/11/17 10/12/17 Range/Units 22:13 23:10 00:13 RBC (3.80-5.40) m/uL Hgb (11.4-16.0) gm/dL Hct (34.0-46.0) % Plt Count (150-450) k/uL Lymphocytes # (1.0-4.8) k/uL BUN (7-17) mg/dL Glucose (74-99) mg/dL POC Glucose (mg/dL) 116 H 113 H 182 H (75-99) mg/dL AST (14-36) U/L ALT (9-52) U/L Total Protein (6.3-8.2) g/dL Crossmatch 10/12/17 10/12/17 10/12/17 Range/Units 01:06 02:19 03:12 RBC (3.80-5.40) m/uL Hgb (11.4-16.0) gm/dL Hct (34.0-46.0) % Plt Count (150-450) k/uL Lymphocytes # (1.0-4.8) k/uL BUN (7-17) mg/dL Glucose (74-99) mg/dL POC Glucose (mg/dL) 151 H 131 H 127 H (75-99) mg/dL AST (14-36) U/L ALT (9-52) U/L Total Protein (6.3-8.2) g/dL Crossmatch 10/12/17 10/12/17 10/12/17 Range/Units 04:15 04:20 04:20 RBC 2.49 L (3.80-5.40) m/uL Hgb 7.4 L (11.4-16.0) gm/dL Hct 21.5 L (34.0-46.0) % Plt Count 100 L (150-450) k/uL Lymphocytes # 0.7 L (1.0-4.8) k/uL BUN 23 H (7-17) mg/dL Glucose 120 H (74-99) mg/dL POC Glucose (mg/dL) 135 H (75-99) mg/dL AST 69 H (14-36) U/L ALT 60 H (9-52) U/L Total Protein 5.0 L (6.3-8.2) g/dL Crossmatch 10/12/17 10/12/17 10/12/17 Range/Units 05:16 07:27 09:39 RBC (3.80-5.40) m/uL Hgb (11.4-16.0) gm/dL Hct (34.0-46.0) % Plt Count (150-450) k/uL Lymphocytes # (1.0-4.8) k/uL BUN (7-17) mg/dL Glucose (74-99) mg/dL POC Glucose (mg/dL) 129 H 122 H 159 H (75-99) mg/dL AST (14-36) U/L ALT (9-52) U/L Total Protein (6.3-8.2) g/dL Crossmatch - Imaging and Cardiology Chest x-ray: report reviewed, image reviewed Assessment and Plan (1) Coronary artery disease Current Visit: Yes Status: Chronic Code(s): I25.10 - ATHSCL HEART DISEASE OF [place] CORONARY ARTERY W/O ANG PCTRS SNOMED Code(s): 77295403 (2) Family history of coronary artery disease Current Visit: Yes Status: Chronic Code(s): Z82.49 - FAMILY HX OF [place] HEART DIS AND OTH DIS OF THE CIRC SYS SNOMED Code(s): 242480292 (3) Hyperlipidemia Current Visit: Yes Status: Chronic Code(s): E78.5 - HYPERLIPIDEMIA, UNSPECIFIED SNOMED Code(s): 52792964 (4) Hypertension Current Visit: Yes Status: Chronic Code(s): I10 - ESSENTIAL (PRIMARY) HYPERTENSION SNOMED Code(s): 89031018 (5) Hypothyroid Current Visit: Yes Status: Chronic Code(s): E03.9 - HYPOTHYROIDISM, UNSPECIFIED SNOMED Code(s): 08141896 (6) Obesity Current Visit: Yes Status: Acute Code(s): E66.9 - OBESITY, UNSPECIFIED SNOMED Code(s): 529745330 Plan: 1. Continue aspirin, statin, Plavix, subcu heparin, beta rory. Will increase her beta rory as tolerated.. 2. Will give IV Lasix 20 mg 1 dose now. 3. Wean O2 as tolerated. Encourage incentive spirometry use 10 times every hour. 4. Bronchodilators per pulmonology, Dr. Aguirre's recommendations. 5. Increase activity, ambulate in room. PT/OT/cardiac rehab following. 6. Continue GI/DVT prophylaxis. 7. Will monitor daily labs and x-rays. Continue ferrous sulfate and vitamin C. 8. Pain control with ordered medications. 9. Insulin management per primary care service. 10. We will discontinue her mediastinal chest tube today and keep her left and right pleural chest tube to low continuous wall suction -20 cm H2O. 11. Continue amiodarone, we will start amiodarone 400 mg by mouth twice a day for atrial fibrillation prophylaxis. 12. We will start Cozaar at 50 mg by mouth daily. Wean Cleviprex as tolerated. 13. We will wean her Primacor as tolerated. 14. More recommendations to follow based on patient's clinical course. Time with Patient: Greater than 30
[2017-10-12 10:49] LABS: Glucose,Whole Blood 134 mg/dL (75-99)
[2017-10-12] MEDS: LACTATED RINGERS 1,000 ML IV SCH (11:32)
[2017-10-12 12:31] LABS: Glucose,Whole Blood 128 mg/dL (75-99)
[2017-10-12] MEDS: POTASSIUM CHLORIDE 10 MEQ in WATER FOR INJECTION 1 100ML.BAG IVPB SCH ×3 (12:48→12:53)
[2017-10-12 13:11] LABS: Glucose,Whole Blood 133 mg/dL (75-99)
[2017-10-12] MEDS: FERROUS SULFATE 325 MG TAB PO SCH (13:55)
[2017-10-12] MEDS: ASCORBIC ACID 500 MG TAB PO SCH (13:55)
[2017-10-12 14:16] LABS: Glucose,Whole Blood 156 mg/dL (75-99)
--- NOTE | 2017-10-12 14:51 | P.PN ---
Subjective Progress Note Date: 10/12/17 Principal diagnosis: Symptomatic multivessel coronary artery disease, status post CABG postoperative day #2 This is a very pleasant 77-year-old female patient who resides most of the year in [facility] and follows with primary care physician there. She has a history of hyperlipidemia, hypertension, hypothyroidism, family history of coronary artery disease. She is a lifelong nonsmoker. No history of asthma. Has not been seen by a pilling machine operator in the past. She had presented to [facility] with complaints of anterior chest wall discomfort and heaviness. She also was noting increased dyspnea on minimal exertion. She was quite hypertensive. Chest x-ray showed no acute pulmonary process. CT angiogram ruled out pulmonary embolism and there was some question of mild fibrotic changes. Serial troponins were negative. EKG did not show any acute ST or T wave abnormalities. There was a noted right bundle branch block. She had undergone cardiac catheterization that revealed triple-vessel disease and she was transferred here for further evaluation and treatment. She may be undergoing coronary artery bypass grafting. She is seen today in consultation on the selective care unit. She is awake and alert in no acute distress. She denies any current shortness of breath, cough or congestion. No chills or night sweats. No chest discomfort or palpitations. No lightheadedness or dizziness. She is maintaining good O2 saturations in the 90s on room air. She' s been afebrile. Hemodynamically stable. White count 6.9. Hemoglobin 13.1. Creatinine 0.76. She is currently on a heparin drip. The patient was seen again today 10/10/2017 in the immediate postoperative setting in the intensive care unit. She had undergone a NELSON to the LAD, saphenous vein graft to the OM, saphenous vein graft to the RCA. She is currently intubated and on mechanical ventilator at settings of SIMV of 12, tidal volume 350, 100% FiO2 and a PEEP of 5. Arterial blood gases reveal a P O2 of 212, pCO2 49, pH 7.32. Adjustments will be made. Chest x-ray was reviewed. Right, left, mediastinal chest tubes in place. Currently has a lactated Ringer's at 50 MLS per hour, nitroglycerin drip at 5 mcg/m, propofol at 10 mcg/kg/m, clevidipine at 2 mg per hour. Urine output is adequate. PA pressures 36/20 with a mean of 27. Patient was reevaluated today on 10/11/2017, doing well, extubated last night. Hours after she arrived to the ICU. Had some minor issues with chest tube bleeding, but seems to be corrected now, and she'll be receiving a blood transfusion this morning. WBC count is 6.8 hemoglobin is 7.1, basic metabolic profile is normal. Chest x-ray showed interval extubation, cardiomegaly, and left basilar atelectasis. Patient was reevaluated today on 10/12/2017, had some shortness of breath last night, improved with increasing her FiO2 and given 1 dose of 20 mg of Lasix. Today the patient is feeling much better, her right pleural chest tube was removed, and her mediastinal chest tube was removed. Patient is doing great, hardly any cough no wheezing no shortness of breath. Pain seems to be fairly well controlled. Had one episode of paroxysmal atrial fibrillation last evening , currently in normal sinus rhythm. Hemoglobin today is 7.4. Rest of the labs were unremarkable. Chest x-ray showed minimal atelectasis at the bases otherwise unremarkable. No evidence of congestive heart failure. Objective - Vital Signs Vital signs: Vital Signs Temp 99.5 F 10/11/17 16:00 Pulse 90 10/12/17 13:30 Resp 41 H 10/12/17 13:30 BP 129/58 10/12/17 13:30 Pulse Ox 92 L 10/12/17 13:30 Intake & Output 10/11/17 10/12/17 10/12/17 18:59 06:59 18:59 Intake Total 3828.377 3755.360 442.370 Output Total 447 020 1297 Balance 650.374 3412.360 -682.630 Weight 77.3 kg 78.8 kg Intake: IV 828.2 1469.9 337 ACETAMINOPHEN IV (For NPO 200 200 100 ) 1,000 mg In Empty Bag 1 bag @ 400 mls/hr IVPB Q6HR [facility] Rx#:[id number] Albumin Human 5% 250 ml 250 In Empty Bag 1 bag @ 250 mls/hr IVPB Q1HR PRN Rx#: [id number] Amiodarone 450 mg In 266.7 Dextrose 5% in Water 250 ml @ 0.5 MG/MIN 17.26 mls /hr IV .Q15H1M [facility] Rx#: [id number] CO/CI 170 96 60 Dextrose 5% in Water 100 100 ml @ 618 mls/hr IV .Q10M ONE with Amiodarone 150 mg Rx#:[id number] Lactated Ringers 1,000 ml 250 460 120 @ 20 mls/hr IV .Q24H [facility] Rx#:[id number] Milrinone-D5w Pmx 20 mg 50.6 In Dextrose/Water 1 100ml .bag @ 0.2 MCG/KG/MIN 4. 63 mls/hr IV .[id number] [facility] Rx#:[id number] Primacor 9.2 4.6 amioadarone bolus 100 pressure Bag 99 42 57 Intake, IV Titration 11.616 246.460 105.370 Amount Amiodarone 450 mg In 235.38 Dextrose 5% in Water 250 ml @ 0.5 MG/MIN 17.26 mls /hr IV .Q15H1M [facility] Rx#: [id number] Clevidipine Butyrate 25 0.633 21.067 mg In Empty Bag 1 bag @ 1 MG/HR 2 mls/hr IV .Q24H [facility] Rx#:[id number] DOPamine DRIP 800 mg In 3.883 Dextrose/Water 1 500ml. bag @ 1.5 MCG/KG/MIN 4.34 mls/hr IV .Q24H [facility] Rx#: [id number] Insulin Regular 100 unit 7.733 10.447 11.843 In Sodium Chloride 0.9% 100 ml @ Per Protocol IV .Q0M [facility] Rx#:[id number] Milrinone-D5w Pmx 20 mg 72.46 In Dextrose/Water 1 100ml .bag @ 0.2 MCG/KG/MIN 4. 63 mls/hr IV .[id number] [facility] Rx#:[id number] Oral 30 Blood Product 620 Rc Pheresis 2 As3 Unit 310 [id number] Rc Pheresis As-3 Unit 310 [id number] Output: Chest Tube Drainage 360 310 LEFT PLEURAL 140 120 MEDIASTINAL 120 110 RIGHT PLEURAL 100 80 Drainage 70 60 Left Calf 70 60 Urine 136 483 9636 Other: Voiding Method Indwelling Catheter Indwelling Catheter ABP, PAP, CO, CI - Last Documented Arterial Blood Pressure 134/55 Pulmonary Artery Pressure 41/22 Cardiac Output 4.7 Cardiac Index 2.8 - Exam Physical Exam: Revealed a 77-year-old female in no distress. Head: Atraumatic, normocephalic. HEENT:[Neck is supple.] [No neck masses.] [No thyromegaly.] [No JVD.] No icterus, PERRLA, EOMI. Chest: [Diminished breath sound bilaterally, no crackles or rhonchi or wheezes.] Cardiac Exam: [Normal S1 and S2, no S3 gallop, no murmur.] Abdomen: [Soft, nontender, no megaly, no rebound, no guarding, normal bowel sounds.] Extremities: [No clubbing, no edema, no cyanosis.] Neurological Exam: [No focal neurologic deficit. Psychiatric: Normal mood affect and mental status examination. Pharynx: No lymphadenopathy.] - Labs CBC & Chem 7: 10/12/17 04:20 10/12/17 04:20 Labs: Abnormal Lab Results - Last 24 Hours (Table) 10/11/17 10/11/17 10/11/17 Range/Units 16:20 18:12 19:21 RBC 2.74 L (3.80-5.40) m/uL Hgb 8.1 L (11.4-16.0) gm/dL Hct 23.6 L (34.0-46.0) % Plt Count 108 L (150-450) k/uL Lymphocytes # (1.0-4.8) k/uL BUN (7-17) mg/dL Glucose (74-99) mg/dL POC Glucose (mg/dL) 131 H 125 H (75-99) mg/dL AST (14-36) U/L ALT (9-52) U/L Total Protein (6.3-8.2) g/dL 10/11/17 10/11/17 10/11/17 Range/Units 20:10 22:13 23:10 RBC (3.80-5.40) m/uL Hgb (11.4-16.0) gm/dL Hct (34.0-46.0) % Plt Count (150-450) k/uL Lymphocytes # (1.0-4.8) k/uL BUN (7-17) mg/dL Glucose (74-99) mg/dL POC Glucose (mg/dL) 117 H 116 H 113 H (75-99) mg/dL AST (14-36) U/L ALT (9-52) U/L Total Protein (6.3-8.2) g/dL 10/12/17 10/12/17 10/12/17 Range/Units 00:13 01:06 02:19 RBC (3.80-5.40) m/uL Hgb (11.4-16.0) gm/dL Hct (34.0-46.0) % Plt Count (150-450) k/uL Lymphocytes # (1.0-4.8) k/uL BUN (7-17) mg/dL Glucose (74-99) mg/dL POC Glucose (mg/dL) 182 H 151 H 131 H (75-99) mg/dL AST (14-36) U/L ALT (9-52) U/L Total Protein (6.3-8.2) g/dL 10/12/17 10/12/17 10/12/17 Range/Units 03:12 04:15 04:20 RBC (3.80-5.40) m/uL Hgb (11.4-16.0) gm/dL Hct (34.0-46.0) % Plt Count (150-450) k/uL Lymphocytes # (1.0-4.8) k/uL BUN 23 H (7-17) mg/dL Glucose 120 H (74-99) mg/dL POC Glucose (mg/dL) 127 H 135 H (75-99) mg/dL AST 69 H (14-36) U/L ALT 60 H (9-52) U/L Total Protein 5.0 L (6.3-8.2) g/dL 10/12/17 10/12/17 10/12/17 Range/Units 04:20 05:16 07:27 RBC 2.49 L (3.80-5.40) m/uL Hgb 7.4 L (11.4-16.0) gm/dL Hct 21.5 L (34.0-46.0) % Plt Count 100 L (150-450) k/uL Lymphocytes # 0.7 L (1.0-4.8) k/uL BUN (7-17) mg/dL Glucose (74-99) mg/dL POC Glucose (mg/dL) 129 H 122 H (75-99) mg/dL AST (14-36) U/L ALT (9-52) U/L Total Protein (6.3-8.2) g/dL 10/12/17 10/12/17 10/12/17 Range/Units 09:39 10:46 12:18 RBC (3.80-5.40) m/uL Hgb (11.4-16.0) gm/dL Hct (34.0-46.0) % Plt Count (150-450) k/uL Lymphocytes # (1.0-4.8) k/uL BUN (7-17) mg/dL Glucose (74-99) mg/dL POC Glucose (mg/dL) 159 H 134 H 128 H (75-99) mg/dL AST (14-36) U/L ALT (9-52) U/L Total Protein (6.3-8.2) g/dL 10/12/17 10/12/17 Range/Units 13:09 14:14 RBC (3.80-5.40) m/uL Hgb (11.4-16.0) gm/dL Hct (34.0-46.0) % Plt Count (150-450) k/uL Lymphocytes # (1.0-4.8) k/uL BUN (7-17) mg/dL Glucose (74-99) mg/dL POC Glucose (mg/dL) 133 H 156 H (75-99) mg/dL AST (14-36) U/L ALT (9-52) U/L Total Protein (6.3-8.2) g/dL Assessment and Plan Assessment: #1 Coronary artery disease, status post coronary artery bypass grafting utilizing a NELSON to the LAD, saphenous vein grafts to the OM and RCA. Postoperative day #2 #2 Hypertension. #3 Hyperlipidemia. #4 Hypothyroidism. #5 expected left lower lobe atelectasis as noted on the chest x-ray, no evidence of pneumonia. Recommendation: Continue present supportive care measures, incentive spirometry , ambulate, bronchodilators as needed, will follow. Time with Patient: Less than 30
[2017-10-12 15:15] LABS: Glucose,Whole Blood 138 mg/dL (75-99)
[2017-10-12] MEDS: MUPIROCIN 2% OINT 22 GM TUBE TOPICAL SCH (15:35)
[2017-10-12] MEDS: DILTIAZEM CD 180 MG CAP.ER.24H PO SCH (15:35)
--- NOTE | 2017-10-12 16:06 | PN ---
PROGRESS NOTE Mrs. Ulrich is a 77-year-old female who was underwent coronary artery bypass grafting. She is doing well this morning. Her breathing is better. She is in sinus mechanism. She denies any chest pain. No dizziness. No palpitations. Hemodynamically, she is stable. She had an episode of paroxysmal atrial fibrillation, but she is back in sinus mechanism. She continues to be at this time on amiodarone 400 mg twice a day, aspirin once a day, Lipitor 40 mg daily, Plavix 75 mg daily, losartan 50 mg daily, metoprolol tartrate 25 mg twice a day and has received a dose of diuretics. PHYSICAL EXAMINATION: Blood pressure 129/50 with a heart rate in the 80s. Lungs no wheezes with mild decrease in breath sounds. HEART: Regular rate and rhythm, S1, S2. No S3. No rub. ABDOMEN: Soft, nontender. Extremities: No significant edema. LAB DATA: Revealed BUN creatinine 23 and 1.0. Potassium 3.7. Hemoglobin of 7.4. Chest x-ray shows no acute changes. IMPRESSION: 1. Status post coronary artery bypass grafting, stable. 2. Hyperlipidemia treated. 3. Paroxysmal atrial fibrillation. 4. Hypertension. RECOMMENDATIONS: From the cardiac standpoint, she is stable. We will continue present therapy and continue incentive spirometry. Increase physical activity and depending on her progress further recommendation will be made. MMODL / IJN: [id number] /
[2017-10-12 16:26] LABS: Glucose,Whole Blood 134 mg/dL (75-99)
--- NOTE | 2017-10-12 16:27 | PN ---
PROGRESS NOTE SUBJECTIVE: 77-year-old white female, status post CABG surgery. She is on Lipitor 40 mg daily, DuoNeb updrafts p.r.n. She is doing well, sitting up in chair, eating a clear liquid diet. She is on Plavix 75 mg a day, heparin subcu, S, Synthroid 200 mcg daily, Losartan 50 mg daily, metoprolol 25 b.i.d. VITAL SIGNS: Stable. Afebrile. CARDIOVASCULAR: S1, S2. LUNGS: Transmitted upper sounds. GI: Soft. HEMATOLOGY: Negative Homans. PSYCH: Fair mood and affect. ASSESSMENT: 1. Status post CABG. 2. Hypertension. 3. Hypothyroidism. 4. Dyslipidemia. Please see further orders. Wean off IV medications. Possibly send off out of ICU to telemetry. The patient is doing much better. EMILY / GETN: [id number] /
[2017-10-12 17:21] LABS: Glucose,Whole Blood 139 mg/dL (75-99)
[2017-10-12 18:10] LABS: Glucose,Whole Blood 163 mg/dL (75-99)
[2017-10-12] MEDS ORDERED: ACETAMINOPHEN IV (For NPO) 1,000 MG in EMPTY BAG 1 BAG IVPB ONE (18:30)
[2017-10-12 19:10] LABS: Glucose,Whole Blood 156 mg/dL (75-99)
[2017-10-12 19:57] LABS: Glucose,Whole Blood 140 mg/dL (75-99)
[2017-10-12] MEDS: SENNOSIDES-DOCUSATE SODIUM 1 EACH TAB PO SCH (20:24)
[2017-10-12 20:59] LABS: Glucose,Whole Blood 133 mg/dL (75-99)
[2017-10-12 22:12] LABS: Glucose,Whole Blood 124 mg/dL (75-99)
[2017-10-12 23:14] LABS: Glucose,Whole Blood 131 mg/dL (75-99)
[2017-10-13 00:06] LABS: Glucose,Whole Blood 125 mg/dL (75-99)
[2017-10-13 01:12] LABS: Glucose,Whole Blood 114 mg/dL (75-99)
[2017-10-13 02:13] LABS: Glucose,Whole Blood 123 mg/dL (75-99)
[2017-10-13 03:16] LABS: Glucose,Whole Blood 130 mg/dL (75-99)
[2017-10-13 04:22] LABS: Glucose,Whole Blood 124 mg/dL (75-99)
[2017-10-13 04:32] LABS: Basophils % (A) 0 %; Eosinophils # (A) 0.1 k/uL (0-0.7); Eosinophils % (A) 2 %; HCT 21.9 % (34.0-46.0); HGB 7.5 gm/dL (11.4-16.0); Lymphocytes # (A) 0.8 k/uL (1.0-4.8); Lymphocytes % (A) 13 %; MCH 29.9 pg (25.0-35.0); MCHC 34.2 g/dL (31.0-37.0); MCV 87.7 fL (80.0-100.0); Mean Platelet Volume 8.1; Monocytes # (A) 0.3 k/uL (0-1.0); Monocytes % (A) 5 %; Neutrophils # (A) 4.8 k/uL (1.3-7.7); Neutrophils % (A) 78 %; Platelet Count 118 k/uL (150-450); RDW 14.1 % (11.5-15.5); WBC 6.2 k/uL (3.8-10.6)
[2017-10-13 04:43] LABS: Albumin 3.2 g/dL (3.5-5.0); Calcium 8.5 mg/dL (8.4-10.2); Potassium 3.9 mmol/L (3.5-5.1); Total Bilirubin 0.6 mg/dL (0.2-1.3); Total Protein 5.1 g/dL (6.3-8.2)
[2017-10-13 05:28] LABS: Glucose,Whole Blood 118 mg/dL (75-99)
[2017-10-13 05:59] LABS: Glucose,Whole Blood 116 mg/dL (75-99)
[2017-10-13] MEDS ORDERED: POTASSIUM CHLORIDE ER 20 MEQ TAB.ER PO SCH (06:00)
[2017-10-13] MEDS: LEVOTHYROXINE 100 MCG TAB PO SCH (06:31)
[2017-10-13] MEDS: INSULIN REGULAR 100 UNIT in SODIUM CHLORIDE 0.9% 100 ML IV SCH (06:48)
[2017-10-13] MEDS: LACTATED RINGERS 1,000 ML IV SCH (06:48)
[2017-10-13 07:12] LABS: Glucose,Whole Blood 117 mg/dL (75-99)
--- NOTE | 2017-10-13 07:12 | XR ---
EXAMINATION TYPE: XR chest 1V portable DATE OF EXAM: 10/13/2017 HISTORY: Postop CABG. REFERENCE: Previous study dated 10/12/2017. FINDINGS: There has been a previous midline sternotomy. There has been internal fixation of the right clavicle. Patient [place]-Thaddeus catheter is been removed. A right internal jugular sheath remains in place. Its tip is in the superior vena cava. The patient's right pleural drain has been removed. The left pleural d rain remains in place. The heart is enlarged. There are small, bilateral effusions. There is bibasilar airspace disease. IMPRESSION: 1. CARDIOMEGALY. 2. BIBASILAR AIRSPACE DISEASE. 3. SMALL, BILATERAL EFFUSIONS.
[2017-10-13] MEDS: CLOPIDOGREL 75 MG TAB PO SCH (08:02)
[2017-10-13] MEDS: LOSARTAN 50 MG TAB PO SCH (08:02)
[2017-10-13] MEDS: AMIODARONE 200 MG TAB PO SCH ×2 (08:02→21:13)
[2017-10-13] MEDS: PANTOPRAZOLE 40 MG TABLET PO SCH (08:02)
[2017-10-13] MEDS: METOPROLOL TARTRATE 25 MG TAB PO SCH ×2 (08:02→21:13)
[2017-10-13] MEDS: ATORVASTATIN 40 MG TAB PO SCH (08:02)
[2017-10-13] MEDS: ASPIRIN 325 MG TAB PO SCH (08:02)
[2017-10-13] MEDS: HEPARIN SODIUM,PORCINE 5,000 UNIT/ML 1 ML VIAL SQ SCH ×3 (08:03→23:43)
[2017-10-13] MEDS: MUPIROCIN 2% OINT 22 GM TUBE NASAL SCH ×2 (08:03→21:14)
[2017-10-13] MEDS: INSULIN ASPART 100 UNIT/ML 1 ML 10 ML VIAL SQ SCH ×5 (08:09→21:12)
[2017-10-13] MEDS: IPRATROPIUM-ALBUTEROL 3 ML NEB INHALATION SCH ×4 (08:52→20:46)
[2017-10-13] MEDS: INSULN ASP PRT/INSULIN ASPART 100 UNIT/ML 10 ML VIAL SQ SCH (09:06)
--- NOTE | 2017-10-13 09:38 | P.PN ---
Subjective Progress Note Date: 10/13/17 Principal diagnosis: Symptomatic multivessel coronary artery disease, preserved left ventricular function, poorly controlled hypertension, hyperlipidemia, hypothyroid, obesity, and a strong family history of coronary artery disease. POD #3 triple coronary artery bypass grafting using the left internal mammary artery to the left anterior descending coronary artery, reverse greater saphenous vein graft from the aorta to the obtuse marginal coronary artery, reverse greater saphenous vein graft from the aorta to the right coronary artery. Endoscopic harvesting of the left greater saphenous vein. Intraoperative transesophageal echocardiogram and epi-aortic scanning. Intraoperative graft flow measurements using the [employer] system. Postoperative normocytic, normochromic anemia, an expected outcome of surgery secondary to hemodilution and bypass pump use. Postoperative paroxysmal atrial fibrillation, an unexpected but potential outcome of surgery. Patient is sitting up to the bedside chair. She is in no acute distress. She denies any complaints of pain or shortness of breath this time. Oxygen saturation are 93% on room air. She is alert and oriented 3. She is achieving 500 mL on her incentive spirometry. No further episodes of atrial fibrillation, bedside telemetry showing normal sinus rhythm heart rate 82. Objective - Vital Signs Vital signs: Vital Signs Temp 98.2 F 10/13/17 04:00 Pulse 76 10/13/17 07:00 Resp 17 10/13/17 07:00 BP 126/63 10/13/17 07:00 Pulse Ox 100 10/13/17 07:00 Intake & Output 10/12/17 10/13/17 10/13/17 18:59 06:59 18:59 Intake Total 886.867 768.238 33 Output Total 1570 1182 65 Balance -683.133 -413.762 -32 Weight 78.8 kg 78.8 kg Intake: IV 517 429 33 ACETAMINOPHEN IV (For NPO 100 ) 1,000 mg In Empty Bag 1 bag @ 400 mls/hr IVPB Q6HR PRETTY Rx#:[id number] CO/CI 60 Lactated Ringers 1,000 ml 270 360 30 @ 20 mls/hr IV .Q24H PRETTY Rx#:[id number] pressure Bag 87 69 3 Intake, IV Titration 169.867 39.238 Amount Clevidipine Butyrate 25 70.667 19.433 mg In Empty Bag 1 bag @ 1 MG/HR 2 mls/hr IV .Q24H PRETTY Rx#:[id number] Insulin Regular 100 unit 16.168 19.805 In Sodium Chloride 0.9% 100 ml @ Per Protocol IV .Q0M PRETTY Rx#:[id number] Milrinone-D5w Pmx 20 mg 83.032 In Dextrose/Water 1 100ml .bag @ 0.2 MCG/KG/MIN 4. 63 mls/hr IV .[id number] PRETTY Rx#:[id number] Oral 200 300 Output: Chest Tube Drainage 70 180 10 LEFT PLEURAL 20 180 10 MEDIASTINAL 20 RIGHT PLEURAL 30 Drainage 25 20 Left Calf 25 20 Urine 1475 982 55 Other: Voiding Method Indwelling Catheter Indwelling Catheter ABP, PAP, CO, CI - Last Documented Arterial Blood Pressure 157/65 Pulmonary Artery Pressure 41/22 Cardiac Output 4.7 Cardiac Index 2.8 - Constitutional General appearance: Present: cooperative, no acute distress, obese - Respiratory Details: Lung sounds with few scattered crackles throughout, diminished bilateral bases. Respirations are symmetrical and nonlabored. Oxygen saturation are 93% on room air. She is achieving 500 mL on her incentive spirometry. Left pleural chest tube remains in place to low continuous wall suction -20 cm H2O. Draining thin serosanguineous drainage. No air leak present. 300 mL output in the last 24 hours, 120 mL output in the last 8 hours. - Cardiovascular Details: Regular rhythm and rate. S1 and S2 present, negative for S3, gallop or murmur. Sternum is stable. Bedside telemetry showing normal sinus rhythm heart rate 82. +1 edema to her bilateral lower extremity. Heart hugger's in place and she is demonstrating appropriate use. Atrial and ventricular epicardial pacemaker wires in place and are grounded. Knee-high MARILIN hose and sequential compression devices in place to bilateral lower extremities. Right IJ Cordis in place and functioning, continue CVP monitoring. Current CVP pressure is 14 mmHg. - Gastrointestinal Gastrointestinal Comment(s): Abdomen is soft, nontender and nondistended. Active bowel sounds to all 4 abdominal quadrants. Passing flatus. Tolerating oral intake. - Genitourinary Genitourinary Comment(s): Greco catheter for accurate I&O. Draining clear yellow urine. 350 mL output in the last 8 hours. - Integumentary Integumentary Comment(s): Skin is warm and dry. No clubbing or cyanosis present. Midline sternal incision clean and dry and approximated. No drainage or redness present. Left leg EVH sites clean dry and approximated. No drainage or redness present. Left lower leg MIGUEL ÁNGEL drain in place, draining thin serosanguineous drainage. 45 mL output in the last 24 hours. - Neurologic Neurologic Comment(s): No focal deficits. Neurologic: Present: CNII-XII intact - Musculoskeletal Musculoskeletal: Present: gait normal, strength equal bilaterally - Psychiatric Psychiatric: Present: A&O x's 3, appropriate affect, intact judgment & insight - Allied health notes Allied health notes reviewed: nursing - Labs CBC & Chem 7: 10/13/17 04:20 10/13/17 04:20 Labs: Abnormal Lab Results - Last 24 Hours (Table) 10/12/17 10/12/17 10/12/17 Range/Units 09:39 10:46 12:18 RBC (3.80-5.40) m/uL Hgb (11.4-16.0) gm/dL Hct (34.0-46.0) % Plt Count (150-450) k/uL Lymphocytes # (1.0-4.8) k/uL Chloride (98-107) mmol/L BUN (7-17) mg/dL Glucose (74-99) mg/dL POC Glucose (mg/dL) 159 H 134 H 128 H (75-99) mg/dL AST (14-36) U/L Total Protein (6.3-8.2) g/dL Albumin (3.5-5.0) g/dL 10/12/17 10/12/17 10/12/17 Range/Units 13:09 14:14 15:10 RBC (3.80-5.40) m/uL Hgb (11.4-16.0) gm/dL Hct (34.0-46.0) % Plt Count (150-450) k/uL Lymphocytes # (1.0-4.8) k/uL Chloride (98-107) mmol/L BUN (7-17) mg/dL Glucose (74-99) mg/dL POC Glucose (mg/dL) 133 H 156 H 138 H (75-99) mg/dL AST (14-36) U/L Total Protein (6.3-8.2) g/dL Albumin (3.5-5.0) g/dL 10/12/17 10/12/17 10/12/17 Range/Units 16:24 17:20 18:08 RBC (3.80-5.40) m/uL Hgb (11.4-16.0) gm/dL Hct (34.0-46.0) % Plt Count (150-450) k/uL Lymphocytes # (1.0-4.8) k/uL Chloride (98-107) mmol/L BUN (7-17) mg/dL Glucose (74-99) mg/dL POC Glucose (mg/dL) 134 H 139 H 163 H (75-99) mg/dL AST (14-36) U/L Total Protein (6.3-8.2) g/dL Albumin (3.5-5.0) g/dL 10/12/17 10/12/17 10/12/17 Range/Units 19:09 19:56 20:56 RBC (3.80-5.40) m/uL Hgb (11.4-16.0) gm/dL Hct (34.0-46.0) % Plt Count (150-450) k/uL Lymphocytes # (1.0-4.8) k/uL Chloride (98-107) mmol/L BUN (7-17) mg/dL Glucose (74-99) mg/dL POC Glucose (mg/dL) 156 H 140 H 133 H (75-99) mg/dL AST (14-36) U/L Total Protein (6.3-8.2) g/dL Albumin (3.5-5.0) g/dL 10/12/17 10/12/17 10/13/17 Range/Units 22:08 23:13 00:03 RBC (3.80-5.40) m/uL Hgb (11.4-16.0) gm/dL Hct (34.0-46.0) % Plt Count (150-450) k/uL Lymphocytes # (1.0-4.8) k/uL Chloride (98-107) mmol/L BUN (7-17) mg/dL Glucose (74-99) mg/dL POC Glucose (mg/dL) 124 H 131 H 125 H (75-99) mg/dL AST (14-36) U/L Total Protein (6.3-8.2) g/dL Albumin (3.5-5.0) g/dL 10/13/17 10/13/17 10/13/17 Range/Units 01:11 02:09 03:14 RBC (3.80-5.40) m/uL Hgb (11.4-16.0) gm/dL Hct (34.0-46.0) % Plt Count (150-450) k/uL Lymphocytes # (1.0-4.8) k/uL Chloride (98-107) mmol/L BUN (7-17) mg/dL Glucose (74-99) mg/dL POC Glucose (mg/dL) 114 H 123 H 130 H (75-99) mg/dL AST (14-36) U/L Total Protein (6.3-8.2) g/dL Albumin (3.5-5.0) g/dL 10/13/17 10/13/17 10/13/17 Range/Units 04:20 04:20 04:20 RBC 2.50 L (3.80-5.40) m/uL Hgb 7.5 L (11.4-16.0) gm/dL Hct 21.9 L (34.0-46.0) % Plt Count 118 L (150-450) k/uL Lymphocytes # 0.8 L (1.0-4.8) k/uL Chloride 109 H (98-107) mmol/L BUN 21 H (7-17) mg/dL Glucose 113 H (74-99) mg/dL POC Glucose (mg/dL) 124 H (75-99) mg/dL AST 45 H (14-36) U/L Total Protein 5.1 L (6.3-8.2) g/dL Albumin 3.2 L (3.5-5.0) g/dL 10/13/17 10/13/17 10/13/17 Range/Units 05:26 05:58 07:10 RBC (3.80-5.40) m/uL Hgb (11.4-16.0) gm/dL Hct (34.0-46.0) % Plt Count (150-450) k/uL Lymphocytes # (1.0-4.8) k/uL Chloride (98-107) mmol/L BUN (7-17) mg/dL Glucose (74-99) mg/dL POC Glucose (mg/dL) 118 H 116 H 117 H (75-99) mg/dL AST (14-36) U/L Total Protein (6.3-8.2) g/dL Albumin (3.5-5.0) g/dL - Imaging and Cardiology Chest x-ray: report reviewed, image reviewed Assessment and Plan (1) Coronary artery disease Current Visit: Yes Status: Chronic Code(s): I25.10 - ATHSCL HEART DISEASE OF [place] CORONARY ARTERY W/O ANG PCTRS SNOMED Code(s): 07809925 (2) Family history of coronary artery disease Current Visit: Yes Status: Chronic Code(s): Z82.49 - FAMILY HX OF [place] HEART DIS AND OTH DIS OF THE CIRC SYS SNOMED Code(s): 995707310 (3) Hyperlipidemia Current Visit: Yes Status: Chronic Code(s): E78.5 - HYPERLIPIDEMIA, UNSPECIFIED SNOMED Code(s): 94187517 (4) Hypertension Current Visit: Yes Status: Chronic Code(s): I10 - ESSENTIAL (PRIMARY) HYPERTENSION SNOMED Code(s): 77446440 (5) Hypothyroid Current Visit: Yes Status: Chronic Code(s): E03.9 - HYPOTHYROIDISM, UNSPECIFIED SNOMED Code(s): 05376289 (6) Obesity Current Visit: Yes Status: Acute Code(s): E66.9 - OBESITY, UNSPECIFIED SNOMED Code(s): 478074378 Plan: 1. Continue aspirin, statin, Plavix, subcu heparin, beta rory. Will increase her beta rory as tolerated.. 2. Will give IV Lasix 20 mg 1 now and at 4 PM today. 3. Encourage incentive spirometry use 10 times every hour. 4. Bronchodilators per pulmonology, Dr. Aguirre's recommendations. 5. Increase activity, ambulate in room. PT/OT/cardiac rehab following. 6. Continue GI/DVT prophylaxis. 7. Will monitor daily labs and x-rays. Continue ferrous sulfate and vitamin C. 8. Pain control with ordered medications. 9. Insulin management per primary care service. 10. We will leave her left pleural chest tube in place to low continuous wall suction -20 cm H2O for another 24 hours. 11. Continue amiodarone, we will start amiodarone 400 mg by mouth twice a day for atrial fibrillation prophylaxis. 12. We will continue Cozaar at 50 mg by mouth daily. 13. We will discontinue her Primacor. 14. Discontinue her left leg MIGUEL ÁNGEL drain and right IJ Cordis. 15. More recommendations to follow based on patient's clinical course. We will transfer the patient to [address] [place] [address] when bed is available. Time with Patient: Greater than 30
--- NOTE | 2017-10-13 10:13 | PN ---
PROGRESS NOTE Mrs. Smith 77-year-old female status post coronary artery bypass grafting. She is feeling well today, sitting up in the chair. She is in sinus mechanism. She denies any chest pain. She denies any dizziness. No palpitation. She has been using her incentive spirometry. She continues to be at this time on aspirin once a day Plavix 75 mg daily, amiodarone 400 mg twice a day, losartan 50 mg daily, metoprolol tartrate 25 mg twice a day. PHYSICAL EXAMINATION: Blood pressure 126/60 with a heart in 70s, lungs with few crackles at the bases. HEART: Regular rate and rhythm, S1, S2. No S3. No rub. ABDOMEN: Soft, nontender. Extremities trace to 1+ edema. LAB DATA: BUN and creatinine 21 and 0.9, potassium 3.9, hemoglobin of 7.5. Her chest x-ray shows small bilateral effusion. IMPRESSION: 1. Status post coronary artery bypass grafting stable. 2. Paroxysmal fibrillation remains in sinus mechanism. 3. Hyperlipidemia. RECOMMENDATIONS: Patient will receive extra dose of diuretics this morning. Continue the rest of her medical regimen. I would expect if she is stable she may be able to be transferred to telemetry floor and increase her level of activity and depending on her progress further recommendations will be made. MMODL / IJN: [id number] /
[2017-10-13] MEDS: FUROSEMIDE 10 MG/ML 2 ML VIAL IV SCH ×2 (10:28→17:09)
[2017-10-13] MEDS: KETOROLAC 30 MG/ML 1 ML VIAL IVP SCH ×4 (12:32→23:44)
[2017-10-13 12:33] LABS: Glucose,Whole Blood 74 mg/dL (75-99)
[2017-10-13] MEDS: FERROUS SULFATE 325 MG TAB PO SCH (12:48)
[2017-10-13] MEDS: ASCORBIC ACID 500 MG TAB PO SCH (12:48)
--- NOTE | 2017-10-13 12:53 | P.PN ---
Subjective Progress Note Date: 10/13/17 Principal diagnosis: Symptomatic multivessel coronary artery disease, status post CABG postoperative day #3 This is a very pleasant 77-year-old female patient who resides most of the year in [facility] and follows with primary care physician there. She has a history of hyperlipidemia, hypertension, hypothyroidism, family history of coronary artery disease. She is a lifelong nonsmoker. No history of asthma. 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 She had presented to [facility] with complaints of anterior chest wall discomfort and heaviness. She also was noting increased dyspnea on minimal exertion. She was quite hypertensive. Chest x-ray showed no acute pulmonary process. CT angiogram ruled out pulmonary embolism and there was some question of mild fibrotic changes. Serial troponins were negative. EKG did not show any acute ST or T wave abnormalities. There was a noted right bundle branch block. She had undergone cardiac catheterization that revealed triple-vessel disease and she was transferred here for further evaluation and treatment. She may be undergoing coronary artery bypass grafting. She is seen today in consultation on the selective care unit. She is awake and alert in no acute distress. She denies any current shortness of breath, cough or congestion. No chills or night sweats. No chest discomfort or palpitations. No lightheadedness or dizziness. She is maintaining good O2 saturations in the 90s on room air. She' s been afebrile. Hemodynamically stable. White count 6.9. Hemoglobin 13.1. Creatinine 0.76. She is currently on a heparin drip. The patient was seen again today 10/10/2017 in the immediate postoperative setting in the intensive care unit. She had undergone a NELSON to the LAD, saphenous vein graft to the OM, saphenous vein graft to the RCA. She is currently intubated and on mechanical ventilator at settings of SIMV of 12, tidal volume 350, 100% FiO2 and a PEEP of 5. Arterial blood gases reveal a P O2 of 212, pCO2 49, pH 7.32. Adjustments will be made. Chest x-ray was reviewed. Right, left, mediastinal chest tubes in place. Currently has a lactated Ringer's at 50 MLS per hour, nitroglycerin drip at 5 mcg/m, propofol at 10 mcg/kg/m, clevidipine at 2 mg per hour. Urine output is adequate. PA pressures 36/20 with a mean of 27. Patient was reevaluated today on 10/11/2017, doing well, extubated last night. Hours after she arrived to the ICU. Had some minor issues with chest tube bleeding, but seems to be corrected now, and she'll be receiving a blood transfusion this morning. WBC count is 6.8 hemoglobin is 7.1, basic metabolic profile is normal. Chest x-ray showed interval extubation, cardiomegaly, and left basilar atelectasis. Patient was reevaluated today on 10/12/2017, had some shortness of breath last night, improved with increasing her FiO2 and given 1 dose of 20 mg of Lasix. Today the patient is feeling much better, her right pleural chest tube was removed, and her mediastinal chest tube was removed. Patient is doing great, hardly any cough no wheezing no shortness of breath. Pain seems to be fairly well controlled. Had one episode of paroxysmal atrial fibrillation last evening , currently in normal sinus rhythm. Hemoglobin today is 7.4. Rest of the labs were unremarkable. Chest x-ray showed minimal atelectasis at the bases otherwise unremarkable. No evidence of congestive heart failure. Patient was reevaluated today on 10/13/2017, doing well, intermittent cough, no wheezing, no shortness of breath, no fever no chills no hemoptysis. On room air , her O2 saturation is 93%, achieving about 500 mL on her incentive spirometry. Patient is hemodynamically stable, no further episodes of atrial fibrillation presently in sinus rhythm. Chest x-ray showed mostly minimal atelectasis at the bases. Hemoglobin is 7.5 today WBC count is 6.2. Basic metabolic profile and renal profile are normal. Objective - Vital Signs Vital signs: Vital Signs Temp 98.2 F 10/13/17 04:00 Pulse 85 10/13/17 12:29 Resp 17 10/13/17 07:00 BP 126/63 10/13/17 07:00 Pulse Ox 100 10/13/17 07:00 Intake & Output 10/12/17 10/13/17 10/13/17 18:59 06:59 18:59 Intake Total 886.867 768.238 33 Output Total 1570 1182 65 Balance -683.133 -413.762 -32 Weight 78.8 kg 78.8 kg Intake: IV 517 429 33 ACETAMINOPHEN IV (For NPO 100 ) 1,000 mg In Empty Bag 1 bag @ 400 mls/hr IVPB Q6HR PRETTY Rx#:[id number] CO/CI 60 Lactated Ringers 1,000 ml 270 360 30 @ 20 mls/hr IV .Q24H PRETTY Rx#:[id number] pressure Bag 87 69 3 Intake, IV Titration 169.867 39.238 Amount Clevidipine Butyrate 25 70.667 19.433 mg In Empty Bag 1 bag @ 1 MG/HR 2 mls/hr IV .Q24H PRETTY Rx#:[id number] Insulin Regular 100 unit 16.168 19.805 In Sodium Chloride 0.9% 100 ml @ Per Protocol IV .Q0M PRETTY Rx#:[id number] Milrinone-D5w Pmx 20 mg 83.032 In Dextrose/Water 1 100ml .bag @ 0.2 MCG/KG/MIN 4. 63 mls/hr IV .[id number] PRETTY Rx#:[id number] Oral 200 300 Output: Chest Tube Drainage 70 180 10 LEFT PLEURAL 20 180 10 MEDIASTINAL 20 RIGHT PLEURAL 30 Drainage 25 20 Left Calf 25 20 Urine 1475 982 55 Other: Voiding Method Indwelling Catheter Indwelling Catheter ABP, PAP, CO, CI - Last Documented Arterial Blood Pressure 157/65 Pulmonary Artery Pressure 41/22 Cardiac Output 4.7 Cardiac Index 2.8 - Exam Physical Exam: Revealed a 77-year-old female in no distress. Head: Atraumatic, normocephalic. HEENT:[Neck is supple.] [No neck masses.] [No thyromegaly.] [No JVD.] No icterus, PERRLA, EOMI. Chest: [Diminished breath sound bilaterally, no crackles or rhonchi or wheezes. ] Left-sided chest tube is noted. Cardiac Exam: [Normal S1 and S2, no S3 gallop, no murmur.] Abdomen: [Soft, nontender, no megaly, no rebound, no guarding, normal bowel sounds.] Extremities: [No clubbing, no edema, no cyanosis.] Neurological Exam: [No focal neurologic deficit. Psychiatric: Normal mood affect and mental status examination. Pharynx: No lymphadenopathy.] - Labs CBC & Chem 7: 10/13/17 04:20 10/13/17 04:20 Labs: Abnormal Lab Results - Last 24 Hours (Table) 10/12/17 10/12/17 10/12/17 Range/Units 13:09 14:14 15:10 RBC (3.80-5.40) m/uL Hgb (11.4-16.0) gm/dL Hct (34.0-46.0) % Plt Count (150-450) k/uL Lymphocytes # (1.0-4.8) k/uL Chloride (98-107) mmol/L BUN (7-17) mg/dL Glucose (74-99) mg/dL POC Glucose (mg/dL) 133 H 156 H 138 H (75-99) mg/dL AST (14-36) U/L Total Protein (6.3-8.2) g/dL Albumin (3.5-5.0) g/dL 10/12/17 10/12/17 10/12/17 Range/Units 16:24 17:20 18:08 RBC (3.80-5.40) m/uL Hgb (11.4-16.0) gm/dL Hct (34.0-46.0) % Plt Count (150-450) k/uL Lymphocytes # (1.0-4.8) k/uL Chloride (98-107) mmol/L BUN (7-17) mg/dL Glucose (74-99) mg/dL POC Glucose (mg/dL) 134 H 139 H 163 H (75-99) mg/dL AST (14-36) U/L Total Protein (6.3-8.2) g/dL Albumin (3.5-5.0) g/dL 10/12/17 10/12/17 10/12/17 Range/Units 19:09 19:56 20:56 RBC (3.80-5.40) m/uL Hgb (11.4-16.0) gm/dL Hct (34.0-46.0) % Plt Count (150-450) k/uL Lymphocytes # (1.0-4.8) k/uL Chloride (98-107) mmol/L BUN (7-17) mg/dL Glucose (74-99) mg/dL POC Glucose (mg/dL) 156 H 140 H 133 H (75-99) mg/dL AST (14-36) U/L Total Protein (6.3-8.2) g/dL Albumin (3.5-5.0) g/dL 10/12/17 10/12/17 10/13/17 Range/Units 22:08 23:13 00:03 RBC (3.80-5.40) m/uL Hgb (11.4-16.0) gm/dL Hct (34.0-46.0) % Plt Count (150-450) k/uL Lymphocytes # (1.0-4.8) k/uL Chloride (98-107) mmol/L BUN (7-17) mg/dL Glucose (74-99) mg/dL POC Glucose (mg/dL) 124 H 131 H 125 H (75-99) mg/dL AST (14-36) U/L Total Protein (6.3-8.2) g/dL Albumin (3.5-5.0) g/dL 10/13/17 10/13/17 10/13/17 Range/Units 01:11 02:09 03:14 RBC (3.80-5.40) m/uL Hgb (11.4-16.0) gm/dL Hct (34.0-46.0) % Plt Count (150-450) k/uL Lymphocytes # (1.0-4.8) k/uL Chloride (98-107) mmol/L BUN (7-17) mg/dL Glucose (74-99) mg/dL POC Glucose (mg/dL) 114 H 123 H 130 H (75-99) mg/dL AST (14-36) U/L Total Protein (6.3-8.2) g/dL Albumin (3.5-5.0) g/dL 10/13/17 10/13/17 10/13/17 Range/Units 04:20 04:20 04:20 RBC 2.50 L (3.80-5.40) m/uL Hgb 7.5 L (11.4-16.0) gm/dL Hct 21.9 L (34.0-46.0) % Plt Count 118 L (150-450) k/uL Lymphocytes # 0.8 L (1.0-4.8) k/uL Chloride 109 H (98-107) mmol/L BUN 21 H (7-17) mg/dL Glucose 113 H (74-99) mg/dL POC Glucose (mg/dL) 124 H (75-99) mg/dL AST 45 H (14-36) U/L Total Protein 5.1 L (6.3-8.2) g/dL Albumin 3.2 L (3.5-5.0) g/dL 10/13/17 10/13/17 10/13/17 Range/Units 05:26 05:58 07:10 RBC (3.80-5.40) m/uL Hgb (11.4-16.0) gm/dL Hct (34.0-46.0) % Plt Count (150-450) k/uL Lymphocytes # (1.0-4.8) k/uL Chloride (98-107) mmol/L BUN (7-17) mg/dL Glucose (74-99) mg/dL POC Glucose (mg/dL) 118 H 116 H 117 H (75-99) mg/dL AST (14-36) U/L Total Protein (6.3-8.2) g/dL Albumin (3.5-5.0) g/dL 10/13/17 Range/Units 12:32 RBC (3.80-5.40) m/uL Hgb (11.4-16.0) gm/dL Hct (34.0-46.0) % Plt Count (150-450) k/uL Lymphocytes # (1.0-4.8) k/uL Chloride (98-107) mmol/L BUN (7-17) mg/dL Glucose (74-99) mg/dL POC Glucose (mg/dL) 74 L (75-99) mg/dL AST (14-36) U/L Total Protein (6.3-8.2) g/dL Albumin (3.5-5.0) g/dL Assessment and Plan Assessment: #1 Coronary artery disease, status post coronary artery bypass grafting utilizing a NELSON to the LAD, saphenous vein grafts to the OM and RCA. Postoperative day #2 #2 Hypertension. #3 Hyperlipidemia. #4 Hypothyroidism. #5 expected left lower lobe atelectasis as noted on the chest x-ray, no evidence of pneumonia. Recommendation: Continue present supportive care measures, including incentive spirometry, early ambulation, bronchodilators, aspirin statins and Plavix beta blockers diuretics as needed, continue GI and DVT prophylaxis, follow-up chest x -ray in a.m. We'll continue to follow. Time with Patient: Less than 30
[2017-10-13 17:01] LABS: Glucose,Whole Blood 96 mg/dL (75-99)
[2017-10-13 20:48] LABS: Glucose,Whole Blood 117 mg/dL (75-99)
[2017-10-13] MEDS: SENNOSIDES-DOCUSATE SODIUM 1 EACH TAB PO SCH (21:21)
[2017-10-13] MEDS: INSULIN NPH 300 UNIT/3 ML VIAL SQ SCH (21:23)
[2017-10-14 01:55] LABS: Glucose,Whole Blood 132 mg/dL (75-99)
[2017-10-14] MEDS: INSULIN ASPART 100 UNIT/ML 1 ML 10 ML VIAL SQ SCH ×7 (02:33→21:20)
[2017-10-14 06:01] LABS: Glucose,Whole Blood 180 mg/dL (75-99)
[2017-10-14 06:42] LABS: Basophils % (A) 0 %; Eosinophils # (A) 0.2 k/uL (0-0.7); Eosinophils % (A) 3 %; HCT 23.5 % (34.0-46.0); HGB 7.8 gm/dL (11.4-16.0); Lymphocytes % (A) 13 %; MCHC 33.3 g/dL (31.0-37.0); MCV 87.1 fL (80.0-100.0); Mean Platelet Volume 7.7; Monocytes # (A) 0.4 k/uL (0-1.0); Monocytes % (A) 6 %; Neutrophils # (A) 5.8 k/uL (1.3-7.7); Neutrophils % (A) 77 %; Platelet Count 164 k/uL (150-450); RBC 2.69 m/uL (3.80-5.40); RDW 14.5 % (11.5-15.5); WBC 7.6 k/uL (3.8-10.6)
[2017-10-14] MEDS: KETOROLAC 30 MG/ML 1 ML VIAL IVP SCH ×4 (07:01→23:59)
[2017-10-14] MEDS: PANTOPRAZOLE 40 MG TABLET PO SCH (07:02)
[2017-10-14] MEDS: LEVOTHYROXINE 100 MCG TAB PO SCH (07:02)
[2017-10-14 07:09] LABS: Albumin 3.1 g/dL (3.5-5.0); Calcium 8.6 mg/dL (8.4-10.2); Potassium 4.4 mmol/L (3.5-5.1); Total Bilirubin 0.8 mg/dL (0.2-1.3); Total Protein 4.9 g/dL (6.3-8.2)
[2017-10-14] MEDS: INSULN ASP PRT/INSULIN ASPART 100 UNIT/ML 10 ML VIAL SQ SCH (07:14)
--- NOTE | 2017-10-14 07:14 | PN ---
PROGRESS NOTE SUBJECTIVE: 77-year-old white female with atypical chest pain, status post CABG surgery. A lot of her drips have been stopped. She has moved up to telemetry floor. CARDIOVASCULAR: S1, S2. LUNGS: Clear. GI: Soft. She has a brace on. ASSESSMENT: 1. Status post CABG. 2. Hypertension. 3. Dyslipidemia. Current treatment, follow up next 24-48 hours. MMODL / IJN: [id number] /
[2017-10-14] MEDS ORDERED: SENNOSIDES-DOCUSATE SODIUM 1 EACH TAB PO PRN (07:32)
[2017-10-14] MEDS: IPRATROPIUM-ALBUTEROL 3 ML NEB INHALATION SCH ×4 (08:10→20:40)
[2017-10-14] MEDS: HEPARIN SODIUM,PORCINE 5,000 UNIT/ML 1 ML VIAL SQ SCH ×3 (08:12→23:59)
[2017-10-14] MEDS: ATORVASTATIN 40 MG TAB PO SCH (08:12)
[2017-10-14] MEDS: AMIODARONE 200 MG TAB PO SCH ×2 (08:13→21:09)
[2017-10-14] MEDS: ASPIRIN 325 MG TAB PO SCH (08:14)
[2017-10-14] MEDS: CLOPIDOGREL 75 MG TAB PO SCH (08:14)
[2017-10-14] MEDS: LOSARTAN 50 MG TAB PO SCH (08:14)
[2017-10-14] MEDS: METOPROLOL TARTRATE 25 MG TAB PO SCH (08:14)
[2017-10-14] MEDS ORDERED: METOPROLOL TARTRATE 25 MG TAB PO ONE (08:30)
--- NOTE | 2017-10-14 08:44 | XR ---
EXAMINATION TYPE: XR chest 2V DATE OF EXAM: 10/14/2017 COMPARISON: 10/13/2017 HISTORY: 77 year-old female post cardiac surgery TECHNIQUE: AP and lateral views FINDINGS: Median sternotomy wires are present with post-CABG clips in the mediastinum. Heart is mildly enlarged . Trace pleural effusions. Prominent vasculature within normal limits. There is some patchy left basi lar opacity. Left-sided chest tube is present. No appreciable pneumothorax. Prior plate and screw fix ation of the right clavicular shaft. Some improving aeration in the lower lungs. The right IJ sheath has been removed in the interval. IMPRESSION: 1. Cardiomegaly and trace effusions persist. 2. Improving aeration at the lung bases with some residual patchy opacity, likely atelectasis at the left base.
--- NOTE | 2017-10-14 09:26 | P.PN ---
Subjective Progress Note Date: 10/14/17 Principal diagnosis: Triple-vessel coronary artery disease non-ST elevation myocardial infarction. Preserved left ventricular function. Previous medical history of poorly controlled hypertension, hypothyroid, hyperlipidemia, obesity, and family history of coronary artery disease. POD #4 urgent triple coronary artery bypass grafting using the left internal mammary artery to the left anterior descending artery, reverse saphenous vein graft from the aorta to the obtuse marginal artery, reverse saphenous vein graft from the aorta to the right coronary artery, endoscopic harvesting of the right greater saphenous vein, intraoperative transesophageal echocardiogram, epi -aortic scanning, and intraoperative graft flow measurements using the Medistim system. Postoperative normocytic, normochromic anemia, and expected outcome of surgery secondary to hemodilution and bypass pump use. Postoperative paroxysmal atrial fibrillation, an unexpected but potential outcome of surgery. Patient's currently sitting up in a chair in no acute distress. Denies pain, shortness of breath. Only complaint is diarrhea which started last night. He was transferred out of ICU to [address] [place] [address] last night. Has ambulated in the hallway. Greco discontinued this morning. Remains in normal sinus rhythm. Objective - Vital Signs Vital signs: Vital Signs Temp 98.9 F 10/14/17 04:00 Pulse 76 10/14/17 04:00 Resp 19 10/14/17 04:00 BP 137/72 10/14/17 04:00 Pulse Ox 95 10/14/17 04:00 Intake & Output 10/13/17 10/14/17 10/14/17 18:59 06:59 18:59 Intake Total 351 0 Output Total 1400 390 Balance -1049 -390 Weight 75.5 kg Intake: IV 51 Lactated Ringers 1,000 ml 30 @ 20 mls/hr IV .Q24H [facility] Rx#:[id number] pressure Bag 21 Oral 300 0 Output: Chest Tube Drainage 40 10 LEFT PLEURAL 40 10 Drainage 25 Left Calf 25 Urine 1335 380 Other: Voiding Method Indwelling Catheter Indwelling Catheter # Voids 1 # Bowel Movements 1 ABP, PAP, CO, CI - Last Documented Arterial Blood Pressure 157/65 Pulmonary Artery Pressure 41/22 Cardiac Output 4.7 Cardiac Index 2.8 - Constitutional General appearance: Present: cooperative, no acute distress, obese - Respiratory Details: Lungs sounds diminished bilaterally. Respirations even, nonlabored. Currently on 2 L nasal cannula with oxygen saturation 95%. Able to achieve 500-750 mL on her incentive spirometry. Left pleural chest tube to continuous wall suction, 10 mL thin serosanguineous drainage overnight, 180 mL last 24 hours. No air leak present. - Cardiovascular Details: S1, S2 present. Regular rate and rhythm, sinus rhythm on telemetry. A/V epicardial pacemaker wire present, grounded. Sternum stable. Palpable peripheral pulses bilaterally. Bilateral lower extremity edema present. No calf pain or tenderness noted. Heart hugger in place with patient demonstrating appropriate use. Antiembolism stockings, SCDs present. - Gastrointestinal Gastrointestinal Comment(s): Abdomen soft, nontender, nondistended. Active bowel sounds 4 quadrants. Tolerating diet. Positive bowel movement. - Genitourinary Genitourinary Comment(s): Greco discontinued yesterday. Patient is voiding clear, yellow urine. - Integumentary Integumentary Comment(s): Skin is warm and dry with evidence of good perfusion. Anterior chest incision well approximated and covered with dry intact dressing. Left lower extremity EVH site well approximated with Dermabond dressing. - Neurologic Neurologic: Present: CNII-XII intact - Musculoskeletal Musculoskeletal: Present: gait normal, strength equal bilaterally - Psychiatric Psychiatric: Present: A&O x's 3, appropriate affect, intact judgment & insight - Allied health notes Allied health notes reviewed: nursing - Labs CBC & Chem 7: 10/14/17 06:19 10/14/17 06:19 Labs: Abnormal Lab Results - Last 24 Hours (Table) 10/10/17 10/13/17 10/13/17 Range/Units 11:49 12:32 20:47 RBC (3.80-5.40) m/uL Hgb (11.4-16.0) gm/dL Hct (34.0-46.0) % ABG pH 7.46 H (7.35-7.45) ABG pO2 418 H (83-108) mmHg ABG Total CO2 26 H (19-24) mmol/L ABG O2 Saturation 100.0 H (94-97) % ABG Hematocrit 24 L (34.0-46.0) % ABG Ionized Calcium 3.9 L (4.5-5.3) mg/dL ABG Glucose 120 H (75-99) mg/dL Hemoglobin 7.9 L (11.4-16.0) gm/dL Chloride (98-107) mmol/L BUN (7-17) mg/dL Glucose (74-99) mg/dL POC Glucose (mg/dL) 74 L 117 H (75-99) mg/dL AST (14-36) U/L Total Protein (6.3-8.2) g/dL Albumin (3.5-5.0) g/dL Arterial Blood Glucose 120 H (75-99) mg/dL 10/14/17 10/14/17 10/14/17 Range/Units 01:53 06:00 06:19 RBC 2.69 L (3.80-5.40) m/uL Hgb 7.8 L (11.4-16.0) gm/dL Hct 23.5 L (34.0-46.0) % ABG pH (7.35-7.45) ABG pO2 (83-108) mmHg ABG Total CO2 (19-24) mmol/L ABG O2 Saturation (94-97) % ABG Hematocrit (34.0-46.0) % ABG Ionized Calcium (4.5-5.3) mg/dL ABG Glucose (75-99) mg/dL Hemoglobin (11.4-16.0) gm/dL Chloride (98-107) mmol/L BUN (7-17) mg/dL Glucose (74-99) mg/dL POC Glucose (mg/dL) 132 H 180 H (75-99) mg/dL AST (14-36) U/L Total Protein (6.3-8.2) g/dL Albumin (3.5-5.0) g/dL Arterial Blood Glucose (75-99) mg/dL 10/14/17 Range/Units 06:19 RBC (3.80-5.40) m/uL Hgb (11.4-16.0) gm/dL Hct (34.0-46.0) % ABG pH (7.35-7.45) ABG pO2 (83-108) mmHg ABG Total CO2 (19-24) mmol/L ABG O2 Saturation (94-97) % ABG Hematocrit (34.0-46.0) % ABG Ionized Calcium (4.5-5.3) mg/dL ABG Glucose (75-99) mg/dL Hemoglobin (11.4-16.0) gm/dL Chloride 110 H (98-107) mmol/L BUN 23 H (7-17) mg/dL Glucose 147 H (74-99) mg/dL POC Glucose (mg/dL) (75-99) mg/dL AST 53 H (14-36) U/L Total Protein 4.9 L (6.3-8.2) g/dL Albumin 3.1 L (3.5-5.0) g/dL Arterial Blood Glucose (75-99) mg/dL - Imaging and Cardiology Chest x-ray: report reviewed, image reviewed Assessment and Plan (1) Hypertension Current Visit: Yes Status: Chronic Code(s): I10 - ESSENTIAL (PRIMARY) HYPERTENSION SNOMED Code(s): 60642200 (2) Hyperlipidemia Current Visit: Yes Status: Chronic Code(s): E78.5 - HYPERLIPIDEMIA, UNSPECIFIED SNOMED Code(s): 55191771 (3) Hypothyroid Current Visit: Yes Status: Chronic Code(s): E03.9 - HYPOTHYROIDISM, UNSPECIFIED SNOMED Code(s): 52610104 (4) Coronary artery disease Current Visit: Yes Status: Chronic Code(s): I25.10 - ATHSCL HEART DISEASE OF [place] CORONARY ARTERY W/O ANG PCTRS SNOMED Code(s): 99177415 (5) Family history of coronary artery disease Current Visit: Yes Status: Chronic Code(s): Z82.49 - FAMILY HX OF I[place]HEM HEART DIS AND OTH DIS OF THE CIRC SYS SNOMED Code(s): 484445121 Plan: 1. Continue aspirin, statin, Plavix, heparin subcu, Cozaar, beta rory therapy. Lopressor increased to 50 mg twice a day. 2. Continue amiodarone for A. fib prophylaxis. Tapered dose should be 400 mg twice daily for 1 week then 200 mg twice daily for 1 week then 200 mg daily for 1 week then stop. No need for anticoagulation unless atrial fibrillation lasts longer than 24 hours. 3. Wean O2 as tolerated. Encourage incentive spirometry use 10 times every hour while awake. Bronchodilators per pulmonology. 4. Will discontinue epicardial pacemaker wires, left pleural chest tube. Patient to remain on bedrest for 1 hour post pacemaker wire removal. 5. Will give Lasix 20 mg IV 2 doses today. 6. Will monitor daily labs and x-rays. No need for further blood transfusion. Continue iron, vitamin C. 7. Increase activity, ambulate in hallway. PT/OT/cardiac rehab following. 8. Dr. Morin consulted for inpatient rehab recommendations. 9. GI/DVT prophylaxis. 10. Pain control with current medication regimen. 11. Insulin management per primary care service. 12. Discharge planning in progress. Anticipate discharge to home versus rehab in the next 48 hours. 13. More recommendations to follow. Time with Patient: Greater than 30
[2017-10-14] MEDS: FUROSEMIDE 10 MG/ML 2 ML VIAL IV SCH ×2 (10:01→21:18)
--- NOTE | 2017-10-14 10:59 | P.CONS ---
History of Present Illness - Chief Complaint Cardiac debility - History of Present Illness I had the opportunity to see patient for inpatient rehab consultation with regard to cardiac debility. She was admitted [facility] October 08 with known 3 vessel coronary disease, underwent CABG 3 vessel. Seen by pulmonary for ICU consult. Chest x-rays followed for cardiomegaly and improved aeration. PT and OT prescribed October 12. Patient reports that she is just been allowed to get up and ambulate including to the bathroom into the hallways. She is awaiting PT and OT evaluations. Previous functional history as elicited patient: 77-year-old right-handed white female who is lives and 2 floor home with . Works part-time in [place], where she also lives. Describes independent with own cooking, laundry , driving, standing shower and gait without device. Dr. Pawan Muller's regular doctor. Patient denies tobacco history but has rare drink. Family history adopted father was a smoker. Review of Systems Review of systems: ENT: Denies sneezes or discharge. Eyes: Denies discharge or photophobia. Cardiac: Denies chest pain or palpitation. Pulmonary: Denies cough or shortness of breath. Breast: Denies discharge or lumps. Gastrointestinal: Denies nausea, emesis, constipation, diarrhea. Genitourinary: Denies discharge or frequency. Musculoskeletal: Denies muscle or bone aches. Neurologic: Denies motor or sensory change. Endocrine: Denies shakes or sweats. Oncology: Denies cancers. Dermatologic: Denies rash, itching, pruritus. ALLERGY/immunology: Denies sneezes, rashes. Past Medical History Past Medical History: Coronary Artery Disease (CAD), Chest Pain / Angina, Hyperlipidemia, Hypertension, Thyroid Disorder Additional Past Medical History / Comment(s): manages cholesterol by diet. hx ulcers 25 years ago(no sx),cataracts, hx fall from horse-sustained art clavical break(sx-has plate/screws) and a fx vertebra -not sure which one.FRUCTOSE INTOLERANCE- CAUSES INSTANT DIARRHEA. , History of Any Multi-Drug Resistant Organisms: None Reported Past Surgical History: Bladder Surgery, Cholecystectomy, Heart Catheterization, Hysterectomy, Tonsillectomy Additional Past Surgical History / Comment(s): bladder suspension, SX TO REPAIR RT CLAVICAL BREAK-HAS PLATE AND SCREWS Past Anesthesia/Blood Transfusion Reactions: No Reported Reaction Smoking Status: Never smoker - Past Family History Father Family Medical History: Coronary Artery Disease (CAD) Mother Family Medical History: Unable to Obtain Additional Family Medical History / Comment(s): PT WAS ADOPTED-ALL SHE KNOWS IS THAT HER MOM AT AGE 99 Medications and Allergies Home Medications Medication Instructions Recorded Confirmed Type Citrucel Tab 1 tab PO DAILY 10/08/17 10/08/17 History Diltiazem HCl [Cartia Xt] 180 mg PO DAILY 10/08/17 10/08/17 History Ipratropium [place] [Ipratropium 2 sprays EA NOSTRIL BID PRN 10/08/17 10/08/17 History [place] 0.03%] Levothyroxine Sodium [Synthroid] 200 mcg PO DAILY 10/08/17 10/08/17 History Losartan Potassium 100 mg PO DAILY 10/08/17 10/08/17 History Allergies Allergy/AdvReac Type Severity Reaction Status Date / Time codeine AdvReac Vomiting Verified 10/08/17 19:37 fructose AdvReac Diarrhea Verified 10/12/17 07:54 Physical Exam Vitals: Vital Signs Temp Pulse Pulse Resp BP BP Pulse Ox 10/14/17 08:25 88 18 10/14/17 08:10 92 18 10/14/17 08:00 99.5 F 78 18 131/70 97 10/14/17 07:55 19 10/14/17 04:00 98.9 F 76 19 137/72 95 10/14/17 00:00 99.9 F H 79 17 135/77 92 L 10/13/17 21:00 99 F 89 18 147/83 95 10/13/17 20:56 89 10/13/17 20:46 88 10/13/17 20:00 98.6 F 92 24 98/50 93 L 10/13/17 19:00 93 28 H 98/50 92 L 10/13/17 18:00 94 31 H 98/50 92 L 10/13/17 17:00 93 31 H 115/60 91 L 10/13/17 16:00 98.2 F 97 25 H 115/60 89 L 10/13/17 15:26 87 10/13/17 15:05 93 34 H 131/62 90 L 10/13/17 14:00 89 25 H 120/55 90 L 10/13/17 13:00 96 28 H 136/69 92 L 10/13/17 12:30 89 24 138/58 96 10/13/17 12:29 85 10/13/17 12:20 83 10/13/17 12:00 98.2 F 86 28 H 152/67 90 L 10/13/17 11:30 85 34 H 135/65 87 L 10/13/17 11:00 86 29 H 128/65 89 L Intake and Output 10/13/17 10/14/17 10/14/17 22:59 06:59 14:59 Intake Total 100 150 200 Output Total 850 10 Balance -750 140 200 Intake: Oral 100 150 200 Output: Chest Tube Drainage 30 10 LEFT PLEURAL 30 10 Urine 820 Other: Voiding Method Indwelling Catheter Indwelling Catheter Indwelling Catheter # Voids 1 # Bowel Movements 1 Weight 75.5 kg Skin: Mildly atrophic, intact. Appears younger than stated age. General: Medium build and comfortable appearance. Head: Normocephalic, atraumatic. Eyes: Symmetric. Pupils equal round. Ears: Symmetric. Hearing within normal limits. Mouth: Clear. Neck: Supple. Carotid without bruit. Cardiac: Regular rate and rhythm. Midline sternotomy clean and dressed. Wearing harness. Lungs: Clear anteriorly and posteriorly. Abdomen: Soft active nontender. Extremities: Normal tone. Neurological: Mental status: Alert, cooperative, pleasant. Cranial nerves: Symmetric facial tone and trapezius. Motor: Normal strength and isolation all 4 limbs. Sensation: Intact throughout. DTRs: Symmetric and equal throughout. Mobility: Sits and stands with 1 person assistance. Results CBC & Chem 7: 10/14/17 06:19 10/14/17 06:19 Labs: Abnormal Lab Results - Last 24 Hours (Table) 10/10/17 10/13/17 10/13/17 Range/Units 11:49 12:32 20:47 RBC (3.80-5.40) m/uL Hgb (11.4-16.0) gm/dL Hct (34.0-46.0) % ABG pH 7.46 H (7.35-7.45) ABG pO2 418 H (83-108) mmHg ABG Total CO2 26 H (19-24) mmol/L ABG O2 Saturation 100.0 H (94-97) % ABG Hematocrit 24 L (34.0-46.0) % ABG Ionized Calcium 3.9 L (4.5-5.3) mg/dL ABG Glucose 120 H (75-99) mg/dL Hemoglobin 7.9 L (11.4-16.0) gm/dL Chloride (98-107) mmol/L BUN (7-17) mg/dL Glucose (74-99) mg/dL POC Glucose (mg/dL) 74 L 117 H (75-99) mg/dL AST (14-36) U/L Total Protein (6.3-8.2) g/dL Albumin (3.5-5.0) g/dL Arterial Blood Glucose 120 H (75-99) mg/dL 10/14/17 10/14/17 10/14/17 Range/Units 01:53 06:00 06:19 RBC 2.69 L (3.80-5.40) m/uL Hgb 7.8 L (11.4-16.0) gm/dL Hct 23.5 L (34.0-46.0) % ABG pH (7.35-7.45) ABG pO2 (83-108) mmHg ABG Total CO2 (19-24) mmol/L ABG O2 Saturation (94-97) % ABG Hematocrit (34.0-46.0) % ABG Ionized Calcium (4.5-5.3) mg/dL ABG Glucose (75-99) mg/dL Hemoglobin (11.4-16.0) gm/dL Chloride (98-107) mmol/L BUN (7-17) mg/dL Glucose (74-99) mg/dL POC Glucose (mg/dL) 132 H 180 H (75-99) mg/dL AST (14-36) U/L Total Protein (6.3-8.2) g/dL Albumin (3.5-5.0) g/dL Arterial Blood Glucose (75-99) mg/dL 10/14/17 Range/Units 06:19 RBC (3.80-5.40) m/uL Hgb (11.4-16.0) gm/dL Hct (34.0-46.0) % ABG pH (7.35-7.45) ABG pO2 (83-108) mmHg ABG Total CO2 (19-24) mmol/L ABG O2 Saturation (94-97) % ABG Hematocrit (34.0-46.0) % ABG Ionized Calcium (4.5-5.3) mg/dL ABG Glucose (75-99) mg/dL Hemoglobin (11.4-16.0) gm/dL Chloride 110 H (98-107) mmol/L BUN 23 H (7-17) mg/dL Glucose 147 H (74-99) mg/dL POC Glucose (mg/dL) (75-99) mg/dL AST 53 H (14-36) U/L Total Protein 4.9 L (6.3-8.2) g/dL Albumin 3.1 L (3.5-5.0) g/dL Arterial Blood Glucose (75-99) mg/dL Assessment and Plan (1) Coronary artery disease Current Visit: Yes Status: Chronic Code(s): I25.10 - ATHSCL HEART DISEASE OF [place] CORONARY ARTERY W/O ANG PCTRS SNOMED Code(s): 42452767 Plan: Impression: 1. Cardiac debility. 2. Status post three-vessel coronary bypass. 4. Hypertension. 5. Dyslipidemia. 6. Obesity. 7. Coronary disease with history of angina. 8. Hypothyroid. Comments and plan: PT and OT prescribed. Follow therapies with yourself. Patient motivated and feels she only needs 1 or 2 more days to return home. We' ll follow with you.
[2017-10-14 11:45] LABS: Glucose,Whole Blood 82 mg/dL (75-99)
[2017-10-14] MEDS: FERROUS SULFATE 325 MG TAB PO SCH (12:01)
[2017-10-14] MEDS: ASCORBIC ACID 500 MG TAB PO SCH (12:01)
--- NOTE | 2017-10-14 12:42 | P.PN ---
Subjective Progress Note Date: 10/14/17 Principal diagnosis: Status post bypass grafting Progress note dated 10/14/2017 77-year-old female postop day #3 status post bypass grafting. The patient a three-vessel bypass. She also has a history of hypertension hyperlipidemia hypothyroidism and basilar atelectasis on chest x-ray. The patient seemed be doing a lot better after her chest tube sutures removed. She denies any significant shortness of breath chest pain chest discomfort cough wheezing phlegm production fever chills nausea vomiting or diarrhea. She actually seemed be doing relatively well. She continues on all the usual medications including incentive spirometer early ambulation bronchodilators aspirin and statins Plavix beta blockers diuretics, etc. Objective - Vital Signs Vital signs: Vital Signs Temp 99.5 F 10/14/17 08:00 Pulse 82 10/14/17 11:43 Resp 17 10/14/17 12:00 BP 121/70 10/14/17 12:00 Pulse Ox 97 10/14/17 12:00 Intake & Output 10/13/17 10/14/17 10/14/17 18:59 06:59 18:59 Intake Total 351 150 200 Output Total 1400 390 Balance -1049 -240 200 Weight 75.5 kg Intake: IV 51 Lactated Ringers 1,000 ml 30 @ 20 mls/hr IV .Q24H [facility] Rx#:[id number] pressure Bag 21 Oral 300 150 200 Output: Chest Tube Drainage 40 10 LEFT PLEURAL 40 10 Drainage 25 Left Calf 25 Urine 1335 380 Other: Voiding Method Indwelling Catheter Indwelling Catheter Indwelling Catheter # Voids 1 # Bowel Movements 1 ABP, PAP, CO, CI - Last Documented Arterial Blood Pressure 157/65 Pulmonary Artery Pressure 41/22 Cardiac Output 4.7 Cardiac Index 2.8 - Exam No acute distress, oriented 3. Not requiring any supplemental oxygen. HEENT examination is grossly unremarkable. Mucous membranes are moist. No oral lesions. Neck supple. Full range of motion. No adenopathy thyromegaly or neck vein distention. Cardiovascular examination reveals regular rhythm rate. S1-S2 normal. No S3 or S4. No discernible murmur noted. Lungs reveal mostly clear breath sounds. Her breath sounds are equal bilaterally. A few scattered rhonchi are noted.. Abdomen soft bowel sounds are heard. No masses or tenderness. Extremities are intact. No cyanosis clubbing or edema. Skin is without rash or lesion. Neurologic examination is brief but nonfocal. - Labs CBC & Chem 7: 10/14/17 06:19 10/14/17 06:19 Labs: Abnormal Lab Results - Last 24 Hours (Table) 10/10/17 10/10/17 10/13/17 Range/Units 11:12 11:49 20:47 RBC (3.80-5.40) m/uL Hgb (11.4-16.0) gm/dL Hct (34.0-46.0) % ABG pH 7.46 H (7.35-7.45) ABG pO2 418 H (83-108) mmHg ABG Total CO2 26 H (19-24) mmol/L ABG O2 Saturation 100.0 H (94-97) % ABG Hematocrit 24 L (34.0-46.0) % ABG Sodium 167 H* (135-146) mmol/L ABG Ionized Calcium 3.9 L (4.5-5.3) mg/dL ABG Glucose 120 H (75-99) mg/dL Hemoglobin 7.9 L (11.4-16.0) gm/dL Chloride (98-107) mmol/L BUN (7-17) mg/dL Glucose (74-99) mg/dL POC Glucose (mg/dL) 117 H (75-99) mg/dL AST (14-36) U/L Total Protein (6.3-8.2) g/dL Albumin (3.5-5.0) g/dL Arterial Blood Glucose 120 H (75-99) mg/dL 10/14/17 10/14/17 10/14/17 Range/Units 01:53 06:00 06:19 RBC 2.69 L (3.80-5.40) m/uL Hgb 7.8 L (11.4-16.0) gm/dL Hct 23.5 L (34.0-46.0) % ABG pH (7.35-7.45) ABG pO2 (83-108) mmHg ABG Total CO2 (19-24) mmol/L ABG O2 Saturation (94-97) % ABG Hematocrit (34.0-46.0) % ABG Sodium (135-146) mmol/L ABG Ionized Calcium (4.5-5.3) mg/dL ABG Glucose (75-99) mg/dL Hemoglobin (11.4-16.0) gm/dL Chloride (98-107) mmol/L BUN (7-17) mg/dL Glucose (74-99) mg/dL POC Glucose (mg/dL) 132 H 180 H (75-99) mg/dL AST (14-36) U/L Total Protein (6.3-8.2) g/dL Albumin (3.5-5.0) g/dL Arterial Blood Glucose (75-99) mg/dL 10/14/17 Range/Units 06:19 RBC (3.80-5.40) m/uL Hgb (11.4-16.0) gm/dL Hct (34.0-46.0) % ABG pH (7.35-7.45) ABG pO2 (83-108) mmHg ABG Total CO2 (19-24) mmol/L ABG O2 Saturation (94-97) % ABG Hematocrit (34.0-46.0) % ABG Sodium (135-146) mmol/L ABG Ionized Calcium (4.5-5.3) mg/dL ABG Glucose (75-99) mg/dL Hemoglobin (11.4-16.0) gm/dL Chloride 110 H (98-107) mmol/L BUN 23 H (7-17) mg/dL Glucose 147 H (74-99) mg/dL POC Glucose (mg/dL) (75-99) mg/dL AST 53 H (14-36) U/L Total Protein 4.9 L (6.3-8.2) g/dL Albumin 3.1 L (3.5-5.0) g/dL Arterial Blood Glucose (75-99) mg/dL Assessment and Plan Assessment: Assessment Postop day #3 status post four-vessel bypass grafting Coronary artery disease History of hypertension Hypothyroidism History of hyperlipidemia Minimal atelectasis on chest x-ray Plan: Plan dated 10/14/2017 The patient is doing reasonably well. We recommend early ambulation along with his incentive spirometer deep breathing coughing clearing of secretions bronchodilators. The patient seemed be doing relatively well. She seemed be doing better since her chest tube and other devices have been removed. We'll continue to follow. No additional recommendations are made. Daily chest x- rays. Time with Patient: Less than 30
--- NOTE | 2017-10-14 15:33 | P.PN ---
Subjective Progress Note Date: 10/14/17 This is a pleasant 77-year-old female patient who follows her physician in [place] where she spends most of her year. She has a history of hypertension, hypothyroidism, hyperlipidemia and family history of CAD. She has been up here visiting since July and has developed increased lower extremity edema as well as chest heaviness and shortness of breath with exertion. She presented to the emergency room at [facility] for evaluation and treatment. She was found to be quite hypertensive. She underwent cardiac catheterization there which showed triple-vessel coronary artery disease and was subsequently transferred here to [facility] where she underwent coronary artery bypass grafting surgery. Patient today had the chest tubes and pacer wires removed, she's been up ambulating in the hallway without any difficulty. At pressure 120/70, heart rate in the 80s. White blood cell count 7.6, hemoglobin 7.8, platelet count 164. Sodium 140, potassium 4.4, BUN 23, creatinine 0.7. Objective - Vital Signs Vital signs: Vital Signs Temp 99.5 F 10/14/17 08:00 Pulse 82 10/14/17 11:43 Resp 17 10/14/17 12:00 BP 121/70 10/14/17 12:00 Pulse Ox 97 10/14/17 12:00 Intake & Output 10/13/17 10/14/17 10/14/17 18:59 06:59 18:59 Intake Total 351 150 200 Output Total 1400 390 Balance -1049 -240 200 Weight 75.5 kg Intake: IV 51 Lactated Ringers 1,000 ml 30 @ 20 mls/hr IV .Q24H [facility] Rx#:[id number] pressure Bag 21 Oral 300 150 200 Output: Chest Tube Drainage 40 10 LEFT PLEURAL 40 10 Drainage 25 Left Calf 25 Urine 1335 380 Other: Voiding Method Indwelling Catheter Indwelling Catheter Indwelling Catheter # Voids 1 # Bowel Movements 1 ABP, PAP, CO, CI - Last Documented Arterial Blood Pressure 157/65 Pulmonary Artery Pressure 41/22 Cardiac Output 4.7 Cardiac Index 2.8 - Exam PHYSICAL EXAMINATION: GENERAL: 77-year-old female in no acute distress at the time of my examination HEENT: Head is atraumatic, normocephalic. Pupils equal, round. Sclera anicteric. Conjunctiva are clear. Mucous membranes of the mouth are moist. Neck is supple. There is no elevated jugular venous pressure. No carotid bruit is heard. HEART EXAMINATION: Heart S1, S2 normal. No murmur or gallop heard. CHEST EXAMINATION: Lungs are clear with mild diminished air entry to the bases ABDOMEN: Soft, nontender. Bowel sounds are heard. No organomegaly noted. EXTREMITIES: 2+ peripheral pulses with trace evidence of peripheral edema and no calf tenderness noted. NEUROLOGIC patient is awake, alert and orientedX3. . - Labs CBC & Chem 7: 10/14/17 06:19 10/14/17 06:19 Labs: Abnormal Lab Results - Last 24 Hours (Table) 10/10/17 10/10/17 10/13/17 Range/Units 11:12 11:49 20:47 RBC (3.80-5.40) m/uL Hgb (11.4-16.0) gm/dL Hct (34.0-46.0) % ABG pH 7.46 H (7.35-7.45) ABG pO2 418 H (83-108) mmHg ABG Total CO2 26 H (19-24) mmol/L ABG O2 Saturation 100.0 H (94-97) % ABG Hematocrit 24 L (34.0-46.0) % ABG Sodium 167 H* (135-146) mmol/L ABG Ionized Calcium 3.9 L (4.5-5.3) mg/dL ABG Glucose 120 H (75-99) mg/dL Hemoglobin 7.9 L (11.4-16.0) gm/dL Chloride (98-107) mmol/L BUN (7-17) mg/dL Glucose (74-99) mg/dL POC Glucose (mg/dL) 117 H (75-99) mg/dL AST (14-36) U/L Total Protein (6.3-8.2) g/dL Albumin (3.5-5.0) g/dL Arterial Blood Glucose 120 H (75-99) mg/dL 10/14/17 10/14/17 10/14/17 Range/Units 01:53 06:00 06:19 RBC 2.69 L (3.80-5.40) m/uL Hgb 7.8 L (11.4-16.0) gm/dL Hct 23.5 L (34.0-46.0) % ABG pH (7.35-7.45) ABG pO2 (83-108) mmHg ABG Total CO2 (19-24) mmol/L ABG O2 Saturation (94-97) % ABG Hematocrit (34.0-46.0) % ABG Sodium (135-146) mmol/L ABG Ionized Calcium (4.5-5.3) mg/dL ABG Glucose (75-99) mg/dL Hemoglobin (11.4-16.0) gm/dL Chloride (98-107) mmol/L BUN (7-17) mg/dL Glucose (74-99) mg/dL POC Glucose (mg/dL) 132 H 180 H (75-99) mg/dL AST (14-36) U/L Total Protein (6.3-8.2) g/dL Albumin (3.5-5.0) g/dL Arterial Blood Glucose (75-99) mg/dL 10/14/17 Range/Units 06:19 RBC (3.80-5.40) m/uL Hgb (11.4-16.0) gm/dL Hct (34.0-46.0) % ABG pH (7.35-7.45) ABG pO2 (83-108) mmHg ABG Total CO2 (19-24) mmol/L ABG O2 Saturation (94-97) % ABG Hematocrit (34.0-46.0) % ABG Sodium (135-146) mmol/L ABG Ionized Calcium (4.5-5.3) mg/dL ABG Glucose (75-99) mg/dL Hemoglobin (11.4-16.0) gm/dL Chloride 110 H (98-107) mmol/L BUN 23 H (7-17) mg/dL Glucose 147 H (74-99) mg/dL POC Glucose (mg/dL) (75-99) mg/dL AST 53 H (14-36) U/L Total Protein 4.9 L (6.3-8.2) g/dL Albumin 3.1 L (3.5-5.0) g/dL Arterial Blood Glucose (75-99) mg/dL Assessment and Plan Plan: Assessment and plan #1 status post coronary bypass grafting surgery #2 paroxysmal atrial fibrillation, remaining in sinus rhythm #3 hyperlipidemia Plan From cardiology's perspective, we will continue patient on her current medications. She is progressing overall very well. We will continue to follow DNP note has been reviewed, I agree with a documented findings and plan of care. Patient was seen and examined.
[2017-10-14 16:44] LABS: Glucose,Whole Blood 111 mg/dL (75-99)
[2017-10-14 21:02] LABS: Glucose,Whole Blood 134 mg/dL (75-99)
[2017-10-14] MEDS: METOPROLOL TARTRATE 50 MG TAB PO SCH (21:10)
[2017-10-14] MEDS: INSULIN NPH 300 UNIT/3 ML VIAL SQ SCH (21:20)
--- NOTE | 2017-10-15 00:22 | PN ---
PROGRESS NOTE SUBJECTIVE: A 77-year-old white female, status post bypass surgery, doing well. Most of her drips were discontinued. She has got a chest binder on. Vital signs stable. Afebrile. Sitting up comfortably in chair. CARDIOVASCULAR: S1, S2. Lungs scattered rhonchi and wheeze. Hematology negative Homans. Psych: Fair mood and affect. ASSESSMENT: 1. Atypical chest pain. 2. Chronic obstructive pulmonary disease. 3. Hypertension. Please see further orders for discharge. Possible next 24 hours. MMODL / IJN: [id number] /
[2017-10-15 01:55] LABS: Glucose,Whole Blood 104 mg/dL (75-99)
[2017-10-15] MEDS: INSULIN ASPART 100 UNIT/ML 1 ML 10 ML VIAL SQ SCH ×5 (02:03→21:04)
[2017-10-15 05:39] LABS: Glucose,Whole Blood 101 mg/dL (75-99)
[2017-10-15 06:20] LABS: Basophils % (A) 1 %; Eosinophils # (A) 0.2 k/uL (0-0.7); Eosinophils % (A) 3 %; HCT 23.1 % (34.0-46.0); HGB 7.6 gm/dL (11.4-16.0); Lymphocytes # (A) 1.2 k/uL (1.0-4.8); Lymphocytes % (A) 19 %; MCH 29.4 pg (25.0-35.0); MCHC 32.9 g/dL (31.0-37.0); MCV 89.3 fL (80.0-100.0); Mean Platelet Volume 7.4; Monocytes # (A) 0.4 k/uL (0-1.0); Monocytes % (A) 7 %; Neutrophils # (A) 4.2 k/uL (1.3-7.7); Neutrophils % (A) 69 %; Platelet Count 197 k/uL (150-450); RBC 2.59 m/uL (3.80-5.40); WBC 6.2 k/uL (3.8-10.6)
[2017-10-15 06:39] LABS: Albumin 3.3 g/dL (3.5-5.0); Calcium 8.8 mg/dL (8.4-10.2); Magnesium 2.1 mg/dL (1.6-2.3); Total Bilirubin 0.8 mg/dL (0.2-1.3); Total Protein 5.3 g/dL (6.3-8.2)
[2017-10-15] MEDS: KETOROLAC 30 MG/ML 1 ML VIAL IVP SCH (06:51)
[2017-10-15] MEDS: LEVOTHYROXINE 100 MCG TAB PO SCH (07:12)
[2017-10-15] MEDS: INSULN ASP PRT/INSULIN ASPART 100 UNIT/ML 10 ML VIAL SQ SCH (07:13)
[2017-10-15] MEDS: PANTOPRAZOLE 40 MG TABLET PO SCH (07:14)
[2017-10-15] MEDS: IPRATROPIUM-ALBUTEROL 3 ML NEB INHALATION SCH ×4 (07:46→20:38)
[2017-10-15] MEDS: HEPARIN SODIUM,PORCINE 5,000 UNIT/ML 1 ML VIAL SQ SCH ×3 (09:13→23:16)
[2017-10-15] MEDS: ATORVASTATIN 40 MG TAB PO SCH (09:14)
[2017-10-15] MEDS: ASPIRIN 325 MG TAB PO SCH (09:14)
[2017-10-15] MEDS: AMIODARONE 200 MG TAB PO SCH ×2 (09:14→20:56)
[2017-10-15] MEDS: LOSARTAN 50 MG TAB PO SCH (09:15)
[2017-10-15] MEDS: METOPROLOL TARTRATE 50 MG TAB PO SCH ×2 (09:15→20:56)
[2017-10-15] MEDS: CLOPIDOGREL 75 MG TAB PO SCH (09:15)
--- NOTE | 2017-10-15 09:15 | XR ---
EXAMINATION TYPE: XR chest 2V DATE OF EXAM: 10/15/2017 COMPARISON: 10/19/2012 HISTORY: Shortness of breath. Follow-up exam. TECHNIQUE: Frontal and lateral views of the chest are obtained. FINDINGS: Cardiomegaly is again seen. Trace pleural effusion blunts the right costophrenic angle. Le ft midlung platelike atelectasis is noted. Remainder the lungs are clear. Postoperative changes the c hest and right clavicle are again seen. IMPRESSION: Unchanged trace right pleural effusion and left midlung/basal atelectasis.
[2017-10-15] MEDS ORDERED: FUROSEMIDE 10 MG/ML 2 ML VIAL IV ONE (10:25)
--- NOTE | 2017-10-15 10:30 | P.PN ---
Subjective Progress Note Date: 10/15/17 Principal diagnosis: Triple-vessel coronary artery disease non-ST elevation myocardial infarction. Preserved left ventricular function. Previous medical history of poorly controlled hypertension, hypothyroid, hyperlipidemia, obesity, and family history of coronary artery disease. POD #5 urgent triple coronary artery bypass grafting using the left internal mammary artery to the left anterior descending artery, reverse saphenous vein graft from the aorta to the obtuse marginal artery, reverse saphenous vein graft from the aorta to the right coronary artery, endoscopic harvesting of the right greater saphenous vein, intraoperative transesophageal echocardiogram, epi -aortic scanning, and intraoperative graft flow measurements using the [employer] system. Postoperative normocytic, normochromic anemia, and expected outcome of surgery secondary to hemodilution and bypass pump use. Postoperative paroxysmal atrial fibrillation, an unexpected but potential outcome of surgery. Patient's currently sitting up in a chair in no acute distress. Denies pain, shortness of breath. Has ambulated in the hallway. Remains in normal sinus rhythm. Objective - Vital Signs Vital signs: Vital Signs Temp 98.2 F 10/15/17 08:00 Pulse 80 10/15/17 07:59 Resp 18 10/15/17 08:00 BP 136/77 10/15/17 08:00 Pulse Ox 91 L 10/15/17 08:00 Intake & Output 10/14/17 10/15/17 10/15/17 18:59 06:59 18:59 Intake Total 500 150 118 Balance 500 150 118 Weight 74.6 kg Intake: Oral 500 150 118 Other: Voiding Method Toilet Toilet # Voids 2 ABP, PAP, CO, CI - Last Documented Arterial Blood Pressure 157/65 Pulmonary Artery Pressure 41/22 Cardiac Output 4.7 Cardiac Index 2.8 - Constitutional General appearance: Present: cooperative, no acute distress, obese - Respiratory Details: Lungs sounds diminished bilaterally. Respirations even, nonlabored. Currently on 2 L nasal cannula with oxygen saturation 96%. Able to achieve 1000 mL on her incentive spirometry. Effective productive cough with white to yellow sputum. - Cardiovascular Details: S1, S2 present. Regular rate and rhythm, sinus rhythm on telemetry. Palpable peripheral pulses bilaterally. Bilateral lower extremity edema present. No calf pain or tenderness noted. Heart hugger in place with patient demonstrating appropriate use. Antiembolism stockings, SCDs present. - Gastrointestinal Gastrointestinal Comment(s): Abdomen soft, nontender, nondistended. Active bowel sounds 4 quadrants. Tolerating diet. Positive bowel movement. - Genitourinary Genitourinary Comment(s): Continues to void clear, yellow urine. - Integumentary Integumentary Comment(s): Skin is warm and dry with evidence of good perfusion. Anterior chest incision well approximated and covered with dry intact dressing. Left lower extremity EVH site well approximated with Dermabond dressing. - Neurologic Neurologic: Present: CNII-XII intact - Musculoskeletal Musculoskeletal: Present: gait normal, strength equal bilaterally - Psychiatric Psychiatric: Present: A&O x's 3, appropriate affect, intact judgment & insight - Allied health notes Allied health notes reviewed: nursing - Labs CBC & Chem 7: 10/15/17 06:02 10/15/17 06:02 Labs: Abnormal Lab Results - Last 24 Hours (Table) 10/10/17 10/14/17 10/14/17 Range/Units 11:12 16:34 21:00 RBC (3.80-5.40) m/uL Hgb (11.4-16.0) gm/dL Hct (34.0-46.0) % ABG Sodium 167 H* (135-146) mmol/L Chloride (98-107) mmol/L BUN (7-17) mg/dL POC Glucose (mg/dL) 111 H 134 H (75-99) mg/dL AST (14-36) U/L ALT (9-52) U/L Total Protein (6.3-8.2) g/dL Albumin (3.5-5.0) g/dL 10/15/17 10/15/17 10/15/17 Range/Units 01:44 05:37 06:02 RBC 2.59 L (3.80-5.40) m/uL Hgb 7.6 L (11.4-16.0) gm/dL Hct 23.1 L (34.0-46.0) % ABG Sodium (135-146) mmol/L Chloride (98-107) mmol/L BUN (7-17) mg/dL POC Glucose (mg/dL) 104 H 101 H (75-99) mg/dL AST (14-36) U/L ALT (9-52) U/L Total Protein (6.3-8.2) g/dL Albumin (3.5-5.0) g/dL 10/15/17 Range/Units 06:02 RBC (3.80-5.40) m/uL Hgb (11.4-16.0) gm/dL Hct (34.0-46.0) % ABG Sodium (135-146) mmol/L Chloride 108 H (98-107) mmol/L BUN 28 H (7-17) mg/dL POC Glucose (mg/dL) (75-99) mg/dL AST 60 H (14-36) U/L ALT 60 H (9-52) U/L Total Protein 5.3 L (6.3-8.2) g/dL Albumin 3.3 L (3.5-5.0) g/dL - Imaging and Cardiology Chest x-ray: report reviewed, image reviewed Assessment and Plan (1) Hypertension Current Visit: Yes Status: Chronic Code(s): I10 - ESSENTIAL (PRIMARY) HYPERTENSION SNOMED Code(s): 03071391 (2) Hyperlipidemia Current Visit: Yes Status: Chronic Code(s): E78.5 - HYPERLIPIDEMIA, UNSPECIFIED SNOMED Code(s): 76222932 (3) Hypothyroid Current Visit: Yes Status: Chronic Code(s): E03.9 - HYPOTHYROIDISM, UNSPECIFIED SNOMED Code(s): 80800800 (4) Coronary artery disease Current Visit: Yes Status: Chronic Code(s): I25.10 - ATHSCL HEART DISEASE OF [place] CORONARY ARTERY W/O ANG PCTRS SNOMED Code(s): 95609973 (5) Family history of coronary artery disease Current Visit: Yes Status: Chronic Code(s): Z82.49 - FAMILY HX OF I[place]HE[place] HEART DIS AND OTH DIS OF THE CIRC SYS SNOMED Code(s): 452470371 Plan: 1. Continue aspirin, statin, Plavix, heparin subcu, Cozaar, beta rory therapy. Will increase beta rory therapy as tolerated. 2. Continue amiodarone for A. fib prophylaxis. Tapered dose should be 400 mg twice daily for 1 week then 200 mg twice daily for 1 week then 200 mg daily for 1 week then stop. No need for anticoagulation unless atrial fibrillation lasts longer than 24 hours. 3. Wean O2 as tolerated. Encourage incentive spirometry use 10 times every hour while awake. Bronchodilators per pulmonology. 4. Will give Lasix 20 mg IV today. 5. Will monitor daily labs. No need for further blood transfusion. Continue iron, vitamin C. 6. Increase activity, ambulate in hallway. PT/OT/cardiac rehab following. 7. GI/DVT prophylaxis. 8. Pain control with current medication regimen. 9. Insulin management per primary care service. 10. Discharge planning in progress. Anticipate discharge to home in the next 24 hours per the patient's wishes. 11. More recommendations to follow. Time with Patient: Greater than 30
--- NOTE | 2017-10-15 10:59 | P.VSCSTY ---
Greater Saphenous Vein Mapping This is bilateral lower extremity greater saphenous vein mapping. Date of service 10/09/2017 Vein quality and ultrasound appearance no intraluminal thrombus or wall changes are seen. Vein size groin right 5.9 x 6.0 groin left 5.1 x 4.4 High thigh right 5.8 x 5.1 high thigh left 4.5 x 4.4 Mid thigh right 3.3 x 3.1 mid thigh left 4.2 x 3.8 Above-knee right 4.1 x 4.6 above- knee left 3.7 x 3.2 Below knee right 3.3 x 3.2 below-knee left 3.5 x 3.3 Mid calf right 3.3 x 2.9 mid calf left 2.7 x 2.9 Ankle right 3.1 x 2.4 ankle left 3.0 x 3.2 Impression usable bilateral greater saphenous vein.
[2017-10-15 11:18] LABS: Glucose,Whole Blood 70 mg/dL (75-99)
--- NOTE | 2017-10-15 11:49 | P.PN ---
Subjective Progress Note Date: 10/15/17 Principal diagnosis: Status post bypass grafting Progress note dated 10/14/2017 77-year-old female postop day #3 status post bypass grafting. The patient a three-vessel bypass. She also has a history of hypertension hyperlipidemia hypothyroidism and basilar atelectasis on chest x-ray. The patient seemed be doing a lot better after her chest tube sutures removed. She denies any significant shortness of breath chest pain chest discomfort cough wheezing phlegm production fever chills nausea vomiting or diarrhea. She actually seemed be doing relatively well. She continues on all the usual medications including incentive spirometer early ambulation bronchodilators aspirin and statins Plavix beta blockers diuretics, etc. Progress note dated 10/15/2017 77-year-old female postop day #4 status post bypass grafting. The patient underwent a three-vessel bypass. She's doing better. She's not having major issues today. She has a history of hypertension hyperlipidemia hypothyroidism and some basilar postoperative changes on chest x-ray. Mostly represents atelectasis. Chest tubes have been removed. She denies any significant shortness of breath. No chest discomfort. No cough wheezing or phlegm production. No fever chills nausea vomiting or diarrhea. The patient likely will be discharged home in a couple days. I again emphasized the importance of deep breathing coughing and clearing of secretions as well as hourly use of the incentive spirometer and ongoing breathing treatments. She does understand. Family members are with her in the room. Objective - Vital Signs Vital signs: Vital Signs Temp 98.2 F 10/15/17 08:00 Pulse 84 10/15/17 11:39 Resp 18 10/15/17 11:39 BP 136/77 10/15/17 08:00 Pulse Ox 96 10/15/17 11:39 Intake & Output 10/14/17 10/15/17 10/15/17 18:59 06:59 18:59 Intake Total 500 150 118 Balance 500 150 118 Weight 74.6 kg Intake: Oral 500 150 118 Other: Voiding Method Toilet Toilet # Voids 2 ABP, PAP, CO, CI - Last Documented Arterial Blood Pressure 157/65 Pulmonary Artery Pressure 41/22 Cardiac Output 4.7 Cardiac Index 2.8 - Exam No acute distress, oriented 3. Not requiring any supplemental oxygen. HEENT examination is grossly unremarkable. Mucous membranes are moist. No oral lesions. Neck supple. Full range of motion. No adenopathy thyromegaly or neck vein distention. Cardiovascular examination reveals regular rhythm rate. S1-S2 normal. No S3 or S4. No discernible murmur noted. Lungs reveal mostly clear breath sounds. Her breath sounds are equal bilaterally. A few scattered rhonchi are noted.. Abdomen soft bowel sounds are heard. No masses or tenderness. Extremities are intact. No cyanosis clubbing or edema. Skin is without rash or lesion. Neurologic examination is brief but nonfocal. - Labs CBC & Chem 7: 10/15/17 06:02 10/15/17 06:02 Labs: Abnormal Lab Results - Last 24 Hours (Table) 10/14/17 10/14/17 10/15/17 Range/Units 16:34 21:00 01:44 RBC (3.80-5.40) m/uL Hgb (11.4-16.0) gm/dL Hct (34.0-46.0) % Chloride (98-107) mmol/L BUN (7-17) mg/dL POC Glucose (mg/dL) 111 H 134 H 104 H (75-99) mg/dL AST (14-36) U/L ALT (9-52) U/L Total Protein (6.3-8.2) g/dL Albumin (3.5-5.0) g/dL 10/15/17 10/15/17 10/15/17 Range/Units 05:37 06:02 06:02 RBC 2.59 L (3.80-5.40) m/uL Hgb 7.6 L (11.4-16.0) gm/dL Hct 23.1 L (34.0-46.0) % Chloride 108 H (98-107) mmol/L BUN 28 H (7-17) mg/dL POC Glucose (mg/dL) 101 H (75-99) mg/dL AST 60 H (14-36) U/L ALT 60 H (9-52) U/L Total Protein 5.3 L (6.3-8.2) g/dL Albumin 3.3 L (3.5-5.0) g/dL 10/15/17 Range/Units 11:15 RBC (3.80-5.40) m/uL Hgb (11.4-16.0) gm/dL Hct (34.0-46.0) % Chloride (98-107) mmol/L BUN (7-17) mg/dL POC Glucose (mg/dL) 70 L (75-99) mg/dL AST (14-36) U/L ALT (9-52) U/L Total Protein (6.3-8.2) g/dL Albumin (3.5-5.0) g/dL Assessment and Plan Assessment: Assessment Postop day #4 status post four-vessel bypass grafting Coronary artery disease History of hypertension Hypothyroidism History of hyperlipidemia Minimal atelectasis on chest x-ray Plan: Plan dated 10/14/2017 The patient is doing reasonably well. We recommend early ambulation along with his incentive spirometer deep breathing coughing clearing of secretions bronchodilators. The patient seemed be doing relatively well. She seemed be doing better since her chest tube and other devices have been removed. We'll continue to follow. No additional recommendations are made. Daily chest x- rays. Plan dated 10/15/2017 The patient's doing well. Likely discharge home in a day or 2. The patient's chest x-ray continues to show improvement. The some bibasilar atelectasis. She 's not requiring any supplemental oxygen. She denies any shortness of breath chest tightness wheezing coughing phlegm production coughing up blood. No fever or chills. No chest pain or chest discomfort. No nausea vomiting or diarrhea. All in all, she's progressing nicely. Time with Patient: Less than 30
[2017-10-15] MEDS: FERROUS SULFATE 325 MG TAB PO SCH (12:46)
[2017-10-15] MEDS: ASCORBIC ACID 500 MG TAB PO SCH (12:46)
[2017-10-15 12:48] LABS: Glucose,Whole Blood 92 mg/dL (75-99)
--- NOTE | 2017-10-15 14:44 | P.PN ---
Subjective Progress Note Date: 10/15/17 This is a pleasant 77-year-old female patient who follows her physician in [place] where she spends most of her year. She has a history of hypertension, hypothyroidism, hyperlipidemia and family history of CAD. She has been up here visiting since July and has developed increased lower extremity edema as well as chest heaviness and shortness of breath with exertion. She presented to the emergency room at [facility] for evaluation and treatment. She was found to be quite hypertensive. She underwent cardiac catheterization there which showed triple-vessel coronary artery disease and was subsequently transferred here to [facility] where she underwent coronary artery bypass grafting surgery. Patient today had the chest tubes and pacer wires removed, she's been up ambulating in the hallway without any difficulty. At pressure 120/70, heart rate in the 80s. White blood cell count 7.6, hemoglobin 7.8, platelet count 164. Sodium 140, potassium 4.4, BUN 23, creatinine 0.7. 10/15/2017 Patient seen and examined this morning, overall doing well. I pressure 145/80 with a heart rate in the 70s, 98.3 temperature. White blood cell count 6.2, hemoglobin 7.6, platelet count 197. Sodium 141, potassium 4.0, BUN 28, creatinine 0.9, magnesium 2.1. Objective - Vital Signs Vital signs: Vital Signs Temp 98.3 F 10/15/17 12:00 Pulse 77 10/15/17 12:00 Resp 18 10/15/17 12:00 BP 145/84 10/15/17 12:00 Pulse Ox 97 10/15/17 12:00 Intake & Output 10/14/17 10/15/17 10/15/17 18:59 06:59 18:59 Intake Total 500 150 118 Balance 500 150 118 Weight 74.6 kg Intake: Oral 500 150 118 Other: Voiding Method Toilet Toilet # Voids 2 ABP, PAP, CO, CI - Last Documented Arterial Blood Pressure 157/65 Pulmonary Artery Pressure 41/22 Cardiac Output 4.7 Cardiac Index 2.8 - Exam PHYSICAL EXAMINATION: GENERAL: 77-year-old female in no acute distress at the time of my examination HEENT: Head is atraumatic, normocephalic. Pupils equal, round. Sclera anicteric. Conjunctiva are clear. Mucous membranes of the mouth are moist. Neck is supple. There is no elevated jugular venous pressure. No carotid bruit is heard. HEART EXAMINATION: Heart S1, S2 normal. No murmur or gallop heard. CHEST EXAMINATION: Lungs are clear with mild diminished air entry to the bases ABDOMEN: Soft, nontender. Bowel sounds are heard. No organomegaly noted. EXTREMITIES: 2+ peripheral pulses with trace evidence of peripheral edema and no calf tenderness noted. NEUROLOGIC patient is awake, alert and orientedX3. . - Labs CBC & Chem 7: 10/15/17 06:02 10/15/17 06:02 Labs: Abnormal Lab Results - Last 24 Hours (Table) 10/14/17 10/14/17 10/15/17 Range/Units 16:34 21:00 01:44 RBC (3.80-5.40) m/uL Hgb (11.4-16.0) gm/dL Hct (34.0-46.0) % Chloride (98-107) mmol/L BUN (7-17) mg/dL POC Glucose (mg/dL) 111 H 134 H 104 H (75-99) mg/dL AST (14-36) U/L ALT (9-52) U/L Total Protein (6.3-8.2) g/dL Albumin (3.5-5.0) g/dL 10/15/17 10/15/17 10/15/17 Range/Units 05:37 06:02 06:02 RBC 2.59 L (3.80-5.40) m/uL Hgb 7.6 L (11.4-16.0) gm/dL Hct 23.1 L (34.0-46.0) % Chloride 108 H (98-107) mmol/L BUN 28 H (7-17) mg/dL POC Glucose (mg/dL) 101 H (75-99) mg/dL AST 60 H (14-36) U/L ALT 60 H (9-52) U/L Total Protein 5.3 L (6.3-8.2) g/dL Albumin 3.3 L (3.5-5.0) g/dL 10/15/17 Range/Units 11:15 RBC (3.80-5.40) m/uL Hgb (11.4-16.0) gm/dL Hct (34.0-46.0) % Chloride (98-107) mmol/L BUN (7-17) mg/dL POC Glucose (mg/dL) 70 L (75-99) mg/dL AST (14-36) U/L ALT (9-52) U/L Total Protein (6.3-8.2) g/dL Albumin (3.5-5.0) g/dL Assessment and Plan Plan: Assessment and plan #1 status post coronary bypass grafting surgery #2 paroxysmal atrial fibrillation, remaining in sinus rhythm #3 hyperlipidemia Plan From cardiology's perspective, we will continue patient on her current medications. She is progressing overall very well. We will continue to follow DNP note has been reviewed, I agree with a documented findings and plan of care. Patient was seen and examined.
[2017-10-15 16:22] LABS: Glucose,Whole Blood 112 mg/dL (75-99)
[2017-10-15 21:05] LABS: Glucose,Whole Blood 122 mg/dL (75-99)
[2017-10-15] MEDS: INSULIN NPH 300 UNIT/3 ML VIAL SQ SCH (21:20)
--- NOTE | 2017-10-15 22:08 | PN ---
PROGRESS NOTE SUBJECTIVE: A 77-year-old white female status post bypass surgery. No chest pain, shortness of breath. No lightheadedness, syncope, just incisional pain. Expecting discharge home in the next 24-48 hours, status post CAB surgery. MMODL / IJN: [id number] /
[2017-10-16 02:02] LABS: Glucose,Whole Blood 132 mg/dL (75-99)
[2017-10-16] MEDS: INSULIN ASPART 100 UNIT/ML 1 ML 10 ML VIAL SQ SCH ×3 (02:27→11:54)
[2017-10-16 06:07] LABS: Glucose,Whole Blood 122 mg/dL (75-99)
[2017-10-16 06:43] LABS: Basophils % (A) 1 %; Eosinophils # (A) 0.3 k/uL (0-0.7); Eosinophils % (A) 4 %; HCT 25.9 % (34.0-46.0); HGB 8.4 gm/dL (11.4-16.0); Lymphocytes # (A) 1.3 k/uL (1.0-4.8); Lymphocytes % (A) 16 %; MCH 29.4 pg (25.0-35.0); MCHC 32.5 g/dL (31.0-37.0); MCV 90.7 fL (80.0-100.0); Monocytes # (A) 0.4 k/uL (0-1.0); Monocytes % (A) 5 %; Neutrophils # (A) 5.7 k/uL (1.3-7.7); Neutrophils % (A) 72 %; Platelet Count 267 k/uL (150-450); RBC 2.85 m/uL (3.80-5.40); RDW 15.6 % (11.5-15.5); WBC 7.9 k/uL (3.8-10.6)
[2017-10-16] MEDS: PANTOPRAZOLE 40 MG TABLET PO SCH (07:02)
[2017-10-16] MEDS: LEVOTHYROXINE 100 MCG TAB PO SCH (07:02)
[2017-10-16 07:05] LABS: Albumin 3.5 g/dL (3.5-5.0); Calcium 8.8 mg/dL (8.4-10.2); Magnesium 2.1 mg/dL (1.6-2.3); Total Bilirubin 0.8 mg/dL (0.2-1.3); Total Protein 5.6 g/dL (6.3-8.2)
[2017-10-16] MEDS: INSULN ASP PRT/INSULIN ASPART 100 UNIT/ML 10 ML VIAL SQ SCH (07:43)
[2017-10-16] MEDS: IPRATROPIUM-ALBUTEROL 3 ML NEB INHALATION SCH ×3 (07:51→15:27)
[2017-10-16 08:12] VITALS: RESP 18
[2017-10-16] MEDS: HEPARIN SODIUM,PORCINE 5,000 UNIT/ML 1 ML VIAL SQ SCH (09:04)
[2017-10-16] MEDS: METOPROLOL TARTRATE 50 MG TAB PO SCH (09:05)
[2017-10-16] MEDS: ASPIRIN 325 MG TAB PO SCH (09:05)
[2017-10-16] MEDS: CLOPIDOGREL 75 MG TAB PO SCH (09:05)
[2017-10-16] MEDS: AMIODARONE 200 MG TAB PO SCH (09:05)
[2017-10-16] MEDS: ATORVASTATIN 40 MG TAB PO SCH (09:05)
[2017-10-16] MEDS: LOSARTAN 50 MG TAB PO SCH (09:05)
[2017-10-16] MEDS ORDERED: FUROSEMIDE 10 MG/ML 2 ML VIAL IV ONE (09:19)
[2017-10-16 11:03] LABS: Glucose,Whole Blood 120 mg/dL (75-99)
--- NOTE | 2017-10-16 11:49 | P.PN ---
Subjective Progress Note Date: 10/16/17 Principal diagnosis: Coronary artery disease, status post four-vessel coronary artery bypass grafting , postop day 5 Progress note dated 10/14/2017 77-year-old female postop day #3 status post bypass grafting. The patient a three-vessel bypass. She also has a history of hypertension hyperlipidemia hypothyroidism and basilar atelectasis on chest x-ray. The patient seemed be doing a lot better after her chest tube sutures removed. She denies any significant shortness of breath chest pain chest discomfort cough wheezing phlegm production fever chills nausea vomiting or diarrhea. She actually seemed be doing relatively well. She continues on all the usual medications including incentive spirometer early ambulation bronchodilators aspirin and statins Plavix beta blockers diuretics, etc. Progress note dated 10/15/2017 77-year-old female postop day #4 status post bypass grafting. The patient underwent a three-vessel bypass. She's doing better. She's not having major issues today. She has a history of hypertension hyperlipidemia hypothyroidism and some basilar postoperative changes on chest x-ray. Mostly represents atelectasis. Chest tubes have been removed. She denies any significant shortness of breath. No chest discomfort. No cough wheezing or phlegm production. No fever chills nausea vomiting or diarrhea. The patient likely will be discharged home in a couple days. I again emphasized the importance of deep breathing coughing and clearing of secretions as well as hourly use of the incentive spirometer and ongoing breathing treatments. She does understand. Family members are with her in the room. On 10/16/2017 patient is seen in follow-up. Patient is awake, alert, oriented 3, room air pulse ox is 94%, she is hemodynamically stable, her fever no chills. Incentive spirometry effort is 1000 ML today. Patient has been ambulating, tolerating activity well. Evidence some loose stools today. Nausea , no vomiting. Lung sounds are clear to auscultation. No new chest x-rays today, today's labs were noted, WBC 7.9, hemoglobin is 8.4, B1 is 22 creatinine 0.92, chloride is 108, respiratory x-rays were normal. No acute issues overnight, patient denies any dyspnea, no chest pain. Anticipate discharge home today. Objective - Vital Signs Vital signs: Vital Signs Temp 98.2 F 10/16/17 08:00 Pulse 77 10/16/17 08:01 Resp 18 10/16/17 08:00 BP 143/81 10/16/17 08:00 Pulse Ox 94 L 10/16/17 08:00 Intake & Output 10/15/17 10/16/17 10/16/17 18:59 06:59 18:59 Intake Total 236 250 120 Balance 236 250 120 Weight 73.7 kg Intake: Oral 236 250 120 Other: Voiding Method Toilet Toilet # Voids 2 ABP, PAP, CO, CI - Last Documented Arterial Blood Pressure 157/65 Pulmonary Artery Pressure 41/22 Cardiac Output 4.7 Cardiac Index 2.8 - Exam No acute distress, oriented 3. Not requiring any supplemental oxygen. HEENT examination is grossly unremarkable. Mucous membranes are moist. No oral lesions. Neck supple. Full range of motion. No adenopathy thyromegaly or neck vein distention. Cardiovascular examination reveals regular rhythm rate. S1-S2 normal. No S3 or S4. No discernible murmur noted. Lungs reveal mostly clear breath sounds. Her breath sounds are equal bilaterally. A few scattered rhonchi are noted.. Abdomen soft bowel sounds are heard. No masses or tenderness. Extremities are intact. No cyanosis clubbing or edema. Skin is without rash or lesion. Neurologic examination is brief but nonfocal. - Labs CBC & Chem 7: 10/16/17 06:08 10/16/17 06:08 Labs: Abnormal Lab Results - Last 24 Hours (Table) 10/15/17 10/15/17 10/16/17 Range/Units 16:18 21:04 02:00 RBC (3.80-5.40) m/uL Hgb (11.4-16.0) gm/dL Hct (34.0-46.0) % RDW (11.5-15.5) % Chloride (98-107) mmol/L BUN (7-17) mg/dL Glucose (74-99) mg/dL POC Glucose (mg/dL) 112 H 122 H 132 H (75-99) mg/dL AST (14-36) U/L ALT (9-52) U/L Total Protein (6.3-8.2) g/dL 10/16/17 10/16/17 10/16/17 Range/Units 06:05 06:08 06:08 RBC 2.85 L (3.80-5.40) m/uL Hgb 8.4 L (11.4-16.0) gm/dL Hct 25.9 L (34.0-46.0) % RDW 15.6 H (11.5-15.5) % Chloride 108 H (98-107) mmol/L BUN 22 H (7-17) mg/dL Glucose 106 H (74-99) mg/dL POC Glucose (mg/dL) 122 H (75-99) mg/dL AST 41 H (14-36) U/L ALT 58 H (9-52) U/L Total Protein 5.6 L (6.3-8.2) g/dL 10/16/17 Range/Units 11:01 RBC (3.80-5.40) m/uL Hgb (11.4-16.0) gm/dL Hct (34.0-46.0) % RDW (11.5-15.5) % Chloride (98-107) mmol/L BUN (7-17) mg/dL Glucose (74-99) mg/dL POC Glucose (mg/dL) 120 H (75-99) mg/dL AST (14-36) U/L ALT (9-52) U/L Total Protein (6.3-8.2) g/dL Assessment and Plan Plan: Assessment: Postop day #5 status post four-vessel bypass grafting Coronary artery disease History of hypertension Hypothyroidism History of hyperlipidemia Minimal atelectasis on chest x-ray Plan: Remains stable, on room air, denies any dyspnea, denies any chest pain. She is tolerating ambulation, and are stable. No acute events overnight, no specific complaints. For discharge from pulmonary standpoint. Follow-up with Dr. Morgan in the office in 7-10 days. I performed a history & physical examination of the patient and discussed their management with my nurse practitioner, Emma Horta. I reviewed the nurse practitioner's note and agree with the documented findings and plan of care. Lung sounds are clear. The findings and the impression was discussed with the patient. I attest to the documentation by the nurse practitioner. Time with Patient: Less than 30
[2017-10-16] MEDS: FERROUS SULFATE 325 MG TAB PO SCH (11:55)
[2017-10-16] MEDS: ASCORBIC ACID 500 MG TAB PO SCH (11:55)
--- NOTE | 2017-10-16 11:55 | P.PN ---
Subjective Progress Note Date: 10/16/17 Principal diagnosis: Triple-vessel coronary artery disease non-ST elevation myocardial infarction. Preserved left ventricular function. Previous medical history of poorly controlled hypertension, hypothyroid, hyperlipidemia, obesity, and family history of coronary artery disease. POD #6 urgent triple coronary artery bypass grafting using the left internal mammary artery to the left anterior descending artery, reverse saphenous vein graft from the aorta to the obtuse marginal artery, reverse saphenous vein graft from the aorta to the right coronary artery, endoscopic harvesting of the right greater saphenous vein, intraoperative transesophageal echocardiogram, epi -aortic scanning, and intraoperative graft flow measurements using the [employer] system. Postoperative normocytic, normochromic anemia, and expected outcome of surgery secondary to hemodilution and bypass pump use. Postoperative paroxysmal atrial fibrillation, an unexpected but potential outcome of surgery. Patient's currently sitting up in a chair in no acute distress. Denies pain, shortness of breath. Has ambulated in the hallway. Remains in normal sinus rhythm. Anxious to go home. Objective - Vital Signs Vital signs: Vital Signs Temp 98.2 F 10/16/17 08:00 Pulse 77 10/16/17 08:01 Resp 18 10/16/17 08:00 BP 143/81 10/16/17 08:00 Pulse Ox 94 L 10/16/17 08:00 Intake & Output 10/15/17 10/16/17 10/16/17 18:59 06:59 18:59 Intake Total 236 250 120 Balance 236 250 120 Weight 73.7 kg Intake: Oral 236 250 120 Other: Voiding Method Toilet Toilet # Voids 2 ABP, PAP, CO, CI - Last Documented Arterial Blood Pressure 157/65 Pulmonary Artery Pressure 41/22 Cardiac Output 4.7 Cardiac Index 2.8 - Constitutional General appearance: Present: cooperative, no acute distress, obese - Respiratory Details: Lungs sounds diminished bilaterally. Respirations even, nonlabored. Currently on room air with oxygen saturation 92%. Able to achieve 750-1000 mL on her incentive spirometry. Effective productive cough with white to yellow sputum. - Cardiovascular Details: S1, S2 present. Regular rate and rhythm, sinus rhythm on telemetry. Palpable peripheral pulses bilaterally. Bilateral lower extremity edema present. No calf pain or tenderness noted. Heart hugger in place with patient demonstrating appropriate use. Antiembolism stockings, SCDs present. - Gastrointestinal Gastrointestinal Comment(s): Abdomen soft, nontender, nondistended. Active bowel sounds 4 quadrants. Tolerating diet. Positive bowel movement. - Genitourinary Genitourinary Comment(s): Continues to void clear, yellow urine. - Integumentary Integumentary Comment(s): Skin is warm and dry with evidence of good perfusion. Anterior chest incision well approximated and covered with dry intact dressing. Left lower extremity EVH site well approximated with Dermabond dressing. - Neurologic Neurologic: Present: CNII-XII intact - Musculoskeletal Musculoskeletal: Present: gait normal, strength equal bilaterally - Psychiatric Psychiatric: Present: A&O x's 3, appropriate affect, intact judgment & insight - Allied health notes Allied health notes reviewed: nursing - Labs CBC & Chem 7: 10/16/17 06:08 10/16/17 06:08 Labs: Abnormal Lab Results - Last 24 Hours (Table) 10/15/17 10/15/17 10/16/17 Range/Units 16:18 21:04 02:00 RBC (3.80-5.40) m/uL Hgb (11.4-16.0) gm/dL Hct (34.0-46.0) % RDW (11.5-15.5) % Chloride (98-107) mmol/L BUN (7-17) mg/dL Glucose (74-99) mg/dL POC Glucose (mg/dL) 112 H 122 H 132 H (75-99) mg/dL AST (14-36) U/L ALT (9-52) U/L Total Protein (6.3-8.2) g/dL 10/16/17 10/16/17 10/16/17 Range/Units 06:05 06:08 06:08 RBC 2.85 L (3.80-5.40) m/uL Hgb 8.4 L (11.4-16.0) gm/dL Hct 25.9 L (34.0-46.0) % RDW 15.6 H (11.5-15.5) % Chloride 108 H (98-107) mmol/L BUN 22 H (7-17) mg/dL Glucose 106 H (74-99) mg/dL POC Glucose (mg/dL) 122 H (75-99) mg/dL AST 41 H (14-36) U/L ALT 58 H (9-52) U/L Total Protein 5.6 L (6.3-8.2) g/dL 10/16/17 Range/Units 11:01 RBC (3.80-5.40) m/uL Hgb (11.4-16.0) gm/dL Hct (34.0-46.0) % RDW (11.5-15.5) % Chloride (98-107) mmol/L BUN (7-17) mg/dL Glucose (74-99) mg/dL POC Glucose (mg/dL) 120 H (75-99) mg/dL AST (14-36) U/L ALT (9-52) U/L Total Protein (6.3-8.2) g/dL Assessment and Plan (1) Hypertension Current Visit: Yes Status: Chronic Code(s): I10 - ESSENTIAL (PRIMARY) HYPERTENSION SNOMED Code(s): 71479774 (2) Hyperlipidemia Current Visit: Yes Status: Chronic Code(s): E78.5 - HYPERLIPIDEMIA, UNSPECIFIED SNOMED Code(s): 76966611 (3) Hypothyroid Current Visit: Yes Status: Chronic Code(s): E03.9 - HYPOTHYROIDISM, UNSPECIFIED SNOMED Code(s): 54672426 (4) Coronary artery disease Current Visit: Yes Status: Chronic Code(s): I25.10 - ATHSCL HEART DISEASE OF [place] CORONARY ARTERY W/O ANG PCTRS SNOMED Code(s): 10457052 (5) Family history of coronary artery disease Current Visit: Yes Status: Chronic Code(s): Z82.49 - FAMILY HX OF I[place]HE[place] HEART DIS AND OTH DIS OF THE CIRC SYS SNOMED Code(s): 884437834 Plan: 1. Continue aspirin, statin, Plavix, heparin subcu, Cozaar, beta rory therapy. 2. Continue amiodarone for A. fib prophylaxis. Tapered dose should be 400 mg twice daily for 1 week then 200 mg twice daily for 1 week then 200 mg daily for 1 week then stop. No need for anticoagulation unless atrial fibrillation lasts longer than 24 hours. 3. Encourage incentive spirometry use 10 times every hour while awake. Bronchodilators per pulmonology. 4. Will give Lasix 20 mg IV today. 5. Increase activity, ambulate in hallway. PT/OT/cardiac rehab following. 6. GI/DVT prophylaxis. 7. Pain control with current medication regimen. 8. Insulin management per primary care service. 9. Discharge planning in progress. Anticipate discharge to home later today. Time with Patient: Greater than 30
--- NOTE | 2017-10-16 12:03 | P.PN ---
Subjective Progress Note Date: 10/16/17 This is a pleasant 77-year-old female patient who follows her physician in [place] where she spends most of her year. She has a history of hypertension, hypothyroidism, hyperlipidemia and family history of CAD. She has been up here visiting since July and has developed increased lower extremity edema as well as chest heaviness and shortness of breath with exertion. She presented to the emergency room at [facility] for evaluation and treatment. She was found to be quite hypertensive. She underwent cardiac catheterization there which showed triple-vessel coronary artery disease and was subsequently transferred here to [facility] where she underwent coronary artery bypass grafting surgery. Patient today had the chest tubes and pacer wires removed, she's been up ambulating in the hallway without any difficulty. At pressure 120/70, heart rate in the 80s. White blood cell count 7.6, hemoglobin 7.8, platelet count 164. Sodium 140, potassium 4.4, BUN 23, creatinine 0.7. 10/15/2017 Patient seen and examined this morning, overall doing well. Blood pressure 145/ 80 with a heart rate in the 70s, 98.3 temperature. White blood cell count 6.2, hemoglobin 7.6, platelet count 197. Sodium 141, potassium 4.0, BUN 28, creatinine 0.9, magnesium 2.1. 10/16/2017 Rebel was seen and examined this morning, feels well, denies any chest pain or breathing is overall stable. Hemodynamically stable. She has been up ambulating in the [place] this morning. Objective - Vital Signs Vital signs: Vital Signs Temp 98.2 F 10/16/17 08:00 Pulse 77 10/16/17 08:01 Resp 18 10/16/17 08:00 BP 143/81 10/16/17 08:00 Pulse Ox 94 L 10/16/17 08:00 Intake & Output 10/15/17 10/16/17 10/16/17 18:59 06:59 18:59 Intake Total 236 250 120 Balance 236 250 120 Weight 73.7 kg Intake: Oral 236 250 120 Other: Voiding Method Toilet Toilet # Voids 2 ABP, PAP, CO, CI - Last Documented Arterial Blood Pressure 157/65 Pulmonary Artery Pressure 41/22 Cardiac Output 4.7 Cardiac Index 2.8 - Exam PHYSICAL EXAMINATION: GENERAL: 77-year-old female in no acute distress at the time of my examination HEENT: Head is atraumatic, normocephalic. Pupils equal, round. Sclera anicteric. Conjunctiva are clear. Mucous membranes of the mouth are moist. Neck is supple. There is no elevated jugular venous pressure. No carotid bruit is heard. HEART EXAMINATION: Heart S1, S2 normal. No murmur or gallop heard. CHEST EXAMINATION: Lungs are clear with mild diminished air entry to the bases ABDOMEN: Soft, nontender. Bowel sounds are heard. No organomegaly noted. EXTREMITIES: 2+ peripheral pulses with trace evidence of peripheral edema and no calf tenderness noted. NEUROLOGIC patient is awake, alert and orientedX3. . - Labs CBC & Chem 7: 10/16/17 06:08 10/16/17 06:08 Labs: Abnormal Lab Results - Last 24 Hours (Table) 10/15/17 10/15/17 10/16/17 Range/Units 16:18 21:04 02:00 RBC (3.80-5.40) m/uL Hgb (11.4-16.0) gm/dL Hct (34.0-46.0) % RDW (11.5-15.5) % Chloride (98-107) mmol/L BUN (7-17) mg/dL Glucose (74-99) mg/dL POC Glucose (mg/dL) 112 H 122 H 132 H (75-99) mg/dL AST (14-36) U/L ALT (9-52) U/L Total Protein (6.3-8.2) g/dL 10/16/17 10/16/17 10/16/17 Range/Units 06:05 06:08 06:08 RBC 2.85 L (3.80-5.40) m/uL Hgb 8.4 L (11.4-16.0) gm/dL Hct 25.9 L (34.0-46.0) % RDW 15.6 H (11.5-15.5) % Chloride 108 H (98-107) mmol/L BUN 22 H (7-17) mg/dL Glucose 106 H (74-99) mg/dL POC Glucose (mg/dL) 122 H (75-99) mg/dL AST 41 H (14-36) U/L ALT 58 H (9-52) U/L Total Protein 5.6 L (6.3-8.2) g/dL 10/16/17 Range/Units 11:01 RBC (3.80-5.40) m/uL Hgb (11.4-16.0) gm/dL Hct (34.0-46.0) % RDW (11.5-15.5) % Chloride (98-107) mmol/L BUN (7-17) mg/dL Glucose (74-99) mg/dL POC Glucose (mg/dL) 120 H (75-99) mg/dL AST (14-36) U/L ALT (9-52) U/L Total Protein (6.3-8.2) g/dL Assessment and Plan Plan: Assessment and plan #1 status post coronary bypass grafting surgery #2 paroxysmal atrial fibrillation, remaining in sinus rhythm #3 hyperlipidemia Plan From cardiology's perspective, we will continue patient on her current medications. She is progressing overall very well. We will continue to follow DNP note has been reviewed, I agree with a documented findings and plan of care. Patient was seen and examined.
[2017-10-16 12:38] VITALS: BP 135/65; PULSE 71; TEMP 98.5
--- NOTE | 2017-10-16 23:11 | PN ---
PROGRESS NOTE SUBJECTIVE: A 77-year-old white female, status post CABG surgery, hypertension, dyslipidemia. Vital signs are stable. CARDIOVASCULAR: S1, S2. LUNGS: Clear. GI: Soft. She is up ambulating. She has a chest on. ASSESSMENT: 1. Status post coronary artery bypass graft surgery. 2. Hypertension. 3. Coronary artery disease. 4. Dyslipidemia. 5. Hypertension. Home medicines were reviewed. Follow up in the office in less than a week. Medications given. Scripts given. MMODL / IJN: [id number] /
--- NOTE | 2017-10-17 15:38 | P.DS ---
Providers Date of admission: 10/08/17 15:57 Expected date of discharge: 10/16/17 Attending physician: Laisha Min Consults: 10/08/17 16:35 Consult Physician Routine Consulting Provider: Laisha Min Consult Reason/Comments: 3V CAD Do you want consulting provider notified?: Already Contacted Placement Type Exists?: Yes 10/08/17 17:53 Consult Physician Routine Consulting Provider: Gregor Aguirre Consult Reason/Comments: preop cardiac surgery Do you want consulting provider notified?: Yes Placement Type Exists?: Yes Consult to Anesthesia Routine Consulting Provider: Anesthesia,Services Consult Reason/Comments: Cardiac Surgery Pre-Op Placement Type Exists?: Yes 10/08/17 18:00 Consult Physician Urgent Consulting Provider: Pawan Muller Consult Reason/Comments: pt. known to you Do you want consulting provider notified?: Yes 10/10/17 15:32 Consult Physician Routine Consulting Provider: Tim Benson Consult Reason/Comments: Tool Design Drafter Consult: post cardiac surgery Do you want consulting provider notified?: Yes 10/14/17 07:46 Consult Physician Routine Consulting Provider: Kartik Morin Consult Reason/Comments: inpatient rehab Do you want consulting provider notified?: Yes Primary care physician: Stated None - Discharge Diagnosis(es) (1) Hypertension Status: Chronic (2) Hyperlipidemia Status: Chronic (3) Hypothyroid Status: Chronic (4) Coronary artery disease Status: Chronic (5) Family history of coronary artery disease Status: Chronic Hospital Course: FINAL DIAGNOSIS: 1. Two-vessel coronary artery disease, non-ST elevation myocardial infarction, preserved left ventricular function 2. Hypertension 3. Hypothyroid 4. Hyperlipidemia 5. Obesity 6. Family history of coronary artery disease 7. Postoperative normocytic, normochromic anemia 8. Postoperative paroxysmal atrial fibrillation PRINCIPAL PROCEDURE: 1. Left heart catheterization 2. Urgent triple coronary artery bypass grafting using the left internal mammary artery to left anterior descending artery, reverse saphenous vein graft from the aorta to the obtuse marginal artery, reverse saphenous vein graft from the aorta to the right coronary artery 3. Endoscopic harvesting of the right greater saphenous vein 4. Intraoperative transesophageal echocardiogram 5. Epi-aortic scanning 6. Intraoperative graft flow measurements using the [employer] system HISTORY OF PRESENT ILLNESS: This is a 77-year-old female patient who follows with physician in [place] where she spends most of her year. She was here visiting from [place] and developed increased lower extremity edema over a week time period, chest heaviness, and shortness of breath with exertion which was relieved with rest. She had no other associated symptoms. She presented to the emergency room at [facility] for evaluation and treatment. She was found to be very hypertensive. Due to her symptoms she was recommended to undergo heart catheterization which demonstrated triple-vessel coronary artery disease. She was transferred to [facility] for evaluation to determine options of stenting versus surgical revascularization.. The patient was referred to Dr. Min from cardiothoracic surgery. She was recommended to undergo coronary artery bypass graft surgery. All risks and benefits were explained in detail to the patient and her family, all questions were answered, and consent was obtained to proceed with surgery. HOSPITAL COURSE: The patient was kept inpatient and on 10/10/2017 she was taken to the preoperative area, prepared in the usual fashion, and subsequently taken to the operating room where Dr. Min performed an urgent triple coronary artery bypass grafting using the left internal mammary artery to left anterior descending artery, reverse saphenous vein graft from the aorta to the obtuse marginal artery, reverse saphenous vein graft from the aorta to the right coronary artery, endoscopic harvesting of the right greater saphenous vein, intraoperative transesophageal echocardiogram, epi-aortic scanning, and intraoperative graft flow measurements using the [employer] system. Upon completion of surgery the patient was transferred to the cardiovascular intensive care unit where she was recovered, monitored hemodynamically, and where she progressed to cardiac rehabilitation phase 1. She was extubated, all lines, tubes, and drips were discontinued when appropriate. She did develop anemia requiring blood transfusion, as well as postoperative paroxysmal atrial fibrillation which was resolved with amiodarone. She was transferred to [address] [place] [address] for further monitoring and rehabilitation where her oxygen was titrated down, she continued to work with physical and occupational therapy, she was tolerating oral diet, her pain was controlled, and she was ready to be discharged to home with home care on postoperative day #6. She received written and verbal instruction regarding her medications, activity restrictions , signs and symptoms requiring physician notification, and follow-up appointments. COMPLICATIONS: The patient experienced postoperative anemia, an expected outcome of surgery secondary to hemodilution and bypass pump use, and paroxysmal atrial fibrillation, an unexpected potential outcome of surgery. Patient Condition at Discharge: Stable Plan - Discharge Summary Discharge Rx Participant: No New Discharge Prescriptions: New Acetaminophen Tab [Tylenol] 500 mg PO Q6HR PRN #120 tab PRN Reason: Fever And/ Or Pain Amiodarone [Cordarone] 400 mg PO BID #33 tab Ascorbic Acid [Vitamin C] 500 mg PO DAILY@1200 #14 tab Aspirin 325 mg PO DAILY #30 tab Atorvastatin [Lipitor] 40 mg PO DAILY #30 tab Clopidogrel [Plavix] 75 mg PO DAILY #30 tab Ferrous Sulfate [Iron (65 MG Elemental)] 325 mg PO W/LUNCH #14 tab Furosemide [Lasix] 20 mg PO DAILY #7 tab Losartan [Cozaar] 50 mg PO DAILY #30 tab Metoprolol Tartrate [Lopressor] 50 mg PO BID #60 tab Pantoprazole [Protonix] 40 mg PO AC-BRKFST #30 tablet.dr Continue Citrucel Tab 1 tab PO DAILY Levothyroxine Sodium [Synthroid] 200 mcg PO DAILY Discontinued Ipratropium Kinney [Ipratropium Kinney 0.03%] 2 sprays EA NOSTRIL BID PRN PRN Reason: Congestion Losartan Potassium 100 mg PO DAILY Diltiazem HCl [Cartia Xt] 180 mg PO DAILY Discharge Medication List Citrucel Tab 1 tab PO DAILY 10/08/17 [History] Levothyroxine Sodium [Synthroid] 200 mcg PO DAILY 10/08/17 [History] Acetaminophen Tab [Tylenol] 500 mg PO Q6HR PRN #120 tab 10/16/17 [Rx] Amiodarone [Cordarone] 400 mg PO BID #33 tab 10/16/17 [Rx] Ascorbic Acid [Vitamin C] 500 mg PO DAILY@1200 #14 tab 10/16/17 [Rx] Aspirin 325 mg PO DAILY #30 tab 10/16/17 [Rx] Atorvastatin [Lipitor] 40 mg PO DAILY #30 tab 10/16/17 [Rx] Clopidogrel [Plavix] 75 mg PO DAILY #30 tab 10/16/17 [Rx] Ferrous Sulfate [Iron (65 MG Elemental)] 325 mg PO W/LUNCH #14 tab 10/16/17 [Rx] Furosemide [Lasix] 20 mg PO DAILY #7 tab 10/16/17 [Rx] Losartan [Cozaar] 50 mg PO DAILY #30 tab 10/16/17 [Rx] Metoprolol Tartrate [Lopressor] 50 mg PO BID #60 tab 10/16/17 [Rx] Pantoprazole [Protonix] 40 mg PO ELVIS-BRKFST #30 tablet. 10/16/17 [Rx] Follow up Appointment(s)/Referral(s): Gregor Aguirre MD [STAFF PHYSICIAN] - 11/06/17 10:15 am (Saturday) Briseyda Hendricks NPC [Nurse Practitioner] - 10/21/17 11:00 am (Saturday) Tim Benson MD [STAFF PHYSICIAN] - 11/01/17 3:15 pm (Saturday) Laisha Min MD [STAFF PHYSICIAN] - 11/08/17 10:15 am (Saturday) Pawan Muller MD [STAFF PHYSICIAN] - 2 Weeks (Please call to make new patient appointment tomorrow per continuing education specialist.) [facility], [NON-STAFF] - As Needed Ambulatory/Diagnostic Orders: Complete Blood Count w/diff [LAB.AMB] Time Frame: 3 Days, Location: None Selected Comprehensive Metabolic Panel [LAB.AMB] Time Frame: 3 Days, Location: None Selected Patient Instructions/Handouts: Heart Healthy Diet (DC), Sternal Precautions ( GEN), Coronary Artery Bypass Graft (DC) Activity/Diet/Wound Care/Special Instructions: DISCHARGE INSTRUCTIONS: 1. No driving for 4 weeks, or until physician gives their ok. 2. The patient should sleep in their own bed, no medical bed needed. 3. Stairs are not an issue. If the bedroom is upstairs, it is advised that the patient go up at night and down in the morning for the first week. Go slowly, using handrail and take 1 step at a time. 4. MARILIN hose are to be worn for 30 days or until physician discontinues. 5. Heart hugger is to be worn 100% of the time until physician discontinues.( except when showering) 6. No lifting, pushing, or pulling more than 10 pounds for 12 weeks. The physician will advise of any restriction changes. 7. The patient is expected to continue the prescribed walking program. 8. Continue pain control per as needed orders. 9. Continue with incentive spirometry and splinting/heart hugger until otherwise directed by the physician. 10. Must shower daily using liquid antibacterial soap and a separate white washcloth for each individual incision. 11. Routine sternal incision care. No powders, lotions, ointments on incisions. 12. Please call surgeon/ELECTRIC BRAIN WAVE EQUIPMENT MECHANIC for temp greater than 101 F or purulent drainage from incisions. 13. All prescriptions given by surgeon for 30 days. Refills need to be filled through tack puller/primary care physician. 14. A Red armband has been placed on the patient. It should be worn for 30 days post surgery and will be removed by the cardiac surgeons. If an ER visit is necessary, please make sure the number on the Red armband is called. HOME HEALTH SERVICES TO PROVIDE: RN SKILLED HOME CARE SERVICES FOR POST-OP SURGICAL PATIENTS WITH THE FOLLOWING: Coronary Artery Bypass Surgery (CABG), Mitral Valve Replacement/ Repair ( MVR), Aortic Valve Replacement/Repair (AVR) RN TO CONTINUE EDUCATION FROM ``ROAD TO A HEALTH HEART PATIENT EDUCATION MANUAL (GIVEN TO PATIENT IN THE HOSPITAL) MEDICATION RECONCILIATION WITH EDUCATION NEEDED ON FIRST HOME VISIT EMPHASIZE IMPORTANCE OF WEARING BREAST SUPPORT/HEART HUGGER ENCOURAGE USE OF INCENTIVE SPIROMETER 10 X EVERY HOUR WHILE AWAKE ENCOURAGE UTILIZATION OF LOWER EXTREMITY COMPRESSION STOCKINGS/MARILIN HOSE and ELEVATE LEGS ABOVE LEVEL OF HEART WHILE AT REST. ENCOURAGE AMBULATION 3-5x/day INCREASING TOLERATES, WHILE AVOID EXTREMES IN TEMPERATURE FREQUENCY: RN TO OPEN THE PATIENT WITHIN 24 HOURS OF DISCHARGE FROM THE HOSPITAL WITH TELEHEALTH INSTALLED AT [facility], RN TO VISIT 2-3 X A WEEK FOR 4 WEEKS ESTABLISHED BY PATIENT NEEDS. REMOVAL OF SUTURES: NURSING SERVICES TO REMOVE SUTURES TWO WEEKS POST SURGICAL DATE, Oct 24, 2017 . If any questions regarding suture removal please call the office at [phone]. LABORATORY: CBC, CMP TO BE DRAWN ON THE THIRD DAY HOME, October 19, 2017 (RAN STAT) FAX RESULTS TO [phone]. TELEHEALTH PARAMETERS: WEIGHT: NOTIFY MD OF WEIGHT GAIN OF 2 LBS IN 24 HOURS OR 5 LBS IN ONE WEEK HR: NOTIFY MD OF HR <55 BPM OR HR>100 BPM BP: NOTIFY MD IF BP <90/55 OR BP>140/100 O2 SAT: NOTIFY MD IF PO2<93% ON ROOM AIR SEND TELEHEALTH REPORT TO CRANKSHAFT BALANCER AND CARDIOVASCULAR SURGEON THE FIRST WEEK OF CARE AND THEN BI-WEEKLY. PLEASE ADDITIONALLY COMMUNICATE ANY ABNORMALS AND NEW FINDINGS TO THE SURGEONS OFFICE. Discharge Disposition: HOME WITH HOME HEALTH SERVICES
== END 2017-10-16 15:34 | disposition home health service (06) | DRG 236 ==
LOC: 6SEL 15:57 → 6ICU 10-10 07:50 → 6SEL 10-13 21:03
PROVIDERS: ADMIT Surgery; ATTEND Surgery
PROC: 06BQ4ZZ Excision of Left Saphenous Vein, Percutaneous Endoscopic Approach (ICD-10-PCS; 2017-10-10)
PROC: 5A1221Z Performance of Cardiac Output, Continuous (ICD-10-PCS; 2017-10-10)
PROC: B24BZZ4 Ultrasonography of Heart with Aorta, Transesophageal (ICD-10-PCS; 2017-10-10)
PROC: 02100Z9 Bypass Coronary Artery, One Artery from Left Internal Mammary, Open Approach (ICD-10-PCS; principal; 2017-10-10 08:00)
PROC: 021109W Bypass Coronary Artery, Two Arteries from Aorta with Autologous Venous Tissue, Open Approach (ICD-10-PCS; 2017-10-10 08:00)
PROC: 30243N1 Transfusion of Nonautologous Red Blood Cells into Central Vein, Percutaneous Approach (ICD-10-PCS; 2017-10-11)
DX: I21.4 Non-ST elevation (NSTEMI) myocardial infarction (principal); J98.11 Atelectasis; D64.9 Anemia, unspecified; E03.9 Hypothyroidism, unspecified; E66.9 Obesity, unspecified; E78.00 Pure hypercholesterolemia, unspecified; E78.5 Hyperlipidemia, unspecified; E87.70 Fluid overload, unspecified; F41.9 Anxiety disorder, unspecified; I11.9 Hypertensive heart disease without heart failure; I25.10 Atherosclerotic heart disease of native coronary artery without angina pectoris; I45.10 Unspecified right bundle-branch block; I48.0 Paroxysmal atrial fibrillation; J44.9 Chronic obstructive pulmonary disease, unspecified; R19.7 Diarrhea, unspecified; K21.9 Gastro-esophageal reflux disease without esophagitis; E74.10 Disorder of fructose metabolism, unspecified; Z79.899 Other long term (current) drug therapy; Z79.890 Hormone replacement therapy; Z90.710 Acquired absence of both cervix and uterus; Z90.49 Acquired absence of other specified parts of digestive tract; Z88.5 Allergy status to narcotic agent; Z82.49 Family history of ischemic heart disease and other diseases of the circulatory system
CPT/HCPCS: 36569; 71045; 71046; 76937; 80051; 80053; 80061; 80074; 81003; 82330; 82805; 83036; 83735; 84132; 84439; 84443; 85025; 85027; 85520; 85610; 85730; 86850; 86891; 86900; 86901; 86920; 87070; 87086; 93880; 93970; 94002; 94150; 94640; 94760

== ENCOUNTER → 2017-10-21 | Outpatient (CLI) | payer OTHER, MEDICARE ==
[2017-10-21 11:08] LABS: HCT 27.8 % (34.0-46.0); HGB 8.8 gm/dL (11.4-16.0); Hypochromasia Moderate; MCHC 31.5 g/dL (31.0-37.0); MCV 92.1 fL (80.0-100.0); Mean Platelet Volume 7.1; Platelet Count 333 k/uL (150-450); RBC 3.02 m/uL (3.80-5.40); RDW 14.8 % (11.5-15.5); WBC 12.9 k/uL (3.8-10.6)
[2017-10-21 11:34] LABS: Albumin 3.8 g/dL (3.5-5.0); Calcium 9.1 mg/dL (8.4-10.2); Potassium 3.9 mmol/L (3.5-5.1); Total Bilirubin 0.9 mg/dL (0.2-1.3); Total Protein 6.4 g/dL (6.3-8.2)
== END | disposition home or self-care (01) ==
LOC: LABWHC1 10:44
PROVIDERS: ATTEND Nurse Practitioner Acute Care
DX: I25.10 Atherosclerotic heart disease of native coronary artery without angina pectoris (principal); Z98.890 Other specified postprocedural states
CPT/HCPCS: 36415; 80053; 85027

== ENCOUNTER → 2017-11-06 | Outpatient (CLI) | payer OTHER, MEDICARE ==
--- NOTE | 2017-11-06 11:24 | XR ---
EXAMINATION TYPE: XR chest 2V DATE OF EXAM: 11/06/2017 COMPARISON: Chest x-ray October 15, 2017. HISTORY: Postop CABG 3 weeks ago with pleural effusion TECHNIQUE: Frontal and lateral views of the chest are obtained. FINDINGS: Post-CABG changes with mediastinal clips and sternal wires is redemonstrated. There is per sistent cardiomegaly with atherosclerotic thoracic aorta. There is chronic emphysematous change with enlarging small right pleural effusion slightly more prominent versus prior. There is persistent patc hy bibasilar atelectasis and/or infiltrate. Osseous structures are demineralized. Underlying scoliosi s is present. Cholecystectomy clips are redemonstrated. Fusion plate over right clavicle is redemonst rated. IMPRESSION: Small to moderate-sized right pleural effusion slightly larger versus most recent prior exam
== END | disposition home or self-care (01) ==
LOC: RADXRMAIN 10:57
PROVIDERS: ATTEND Internal Medicine
DX: J90 Pleural effusion, not elsewhere classified (principal); J95.89 Other postprocedural complications and disorders of respiratory system, not elsewhere classified; Z95.1 Presence of aortocoronary bypass graft
CPT/HCPCS: 71046

== ENCOUNTER → 2017-11-19 | Outpatient (CLI) | payer OTHER, MEDICARE ==
--- NOTE | 2017-11-19 14:23 | XR ---
EXAMINATION TYPE: XR chest 2V DATE OF EXAM: 11/19/2017 COMPARISON: 11/06/2017 HISTORY: 77-year-old female with follow-up pneumonia, pleural effusion TECHNIQUE: Frontal and lateral views FINDINGS: Heart normal size. Aorta and pulmonary vasculature within normal limits. Median sternotomy wires are present with post-CABG clips. Plate and screw fixation of the right clavicle. Interval resolution of the previous right-sided pleural effusion. Some strandy atelectasis remains at both lower lungs. IMPRESSION: Interval clearance of the patient's right pleural effusion. No acute process seen.
== END | disposition home or self-care (01) ==
LOC: RADXRMAIN 10:10
PROVIDERS: ATTEND Family Medicine
DX: J90 Pleural effusion, not elsewhere classified (principal)
CPT/HCPCS: 71046

== ENCOUNTER 2020-10-03 11:25 | Inpatient (IN) | payer OTHER, MEDICARE ==
[2020-10-03] MEDS ORDERED: HEPARIN SODIUM 1,000 UN/ML (10ML VL) ONE (14:03)
[2020-10-03] MEDS ORDERED: LIDOCAINE 1% INJ 10MG/ML (20 ML MDV) ONE (14:03)
[2020-10-03] MEDS: MIDAZOLAM 2 MG/2 ML VIAL IV ONE ×2 (14:38→14:54)
[2020-10-03] MEDS ORDERED: HYDROmorphone 0.5 MG/0.5 ML SYRINGE IVP ONE (14:38)
[2020-10-03] MEDS ORDERED: IV FLUID CONTINUATION 1,000 ML IV ONE (14:39)
[2020-10-03] MEDS ORDERED: MIDAZOLAM 2 MG/2 ML VIAL IV ONE (15:03)
[2020-10-03] MEDS: NITROGLYCERIN 1000MCG/10ML SYRINGE INTRACORON ONE ×2 (15:08→15:10)
[2020-10-03] MEDS ORDERED: IOPAMIDOL-370 125ML BTL INJ ONE (15:09)
[2020-10-03] MEDS ORDERED: TICAGRELOR 90 MG TAB ONE (15:13)
[2020-10-03] MEDS ORDERED: TICAGRELOR 90 MG TAB PO ONE (15:26)
[2020-10-03] MEDS ORDERED: SODIUM CHLORIDE 0.9% 1,000 ML IV SCH (15:30)
[2020-10-03] MEDS ORDERED: ACETAMINOPHEN TAB 325 MG TAB PO PRN (16:46)
[2020-10-03] MEDS ORDERED: hydrALAZINE HCL 20 MG/ML 1 ML VIAL IVP PRN (16:52)
[2020-10-03] MEDS: LOSARTAN 50 MG TAB PO SCH (17:05)
--- NOTE | 2020-10-03 18:48 | PTCA ---
PERCUTANEOUSTRANS CORORONARY ANGIOGRAPHY DATE OF PROCEDURE: 10/03/2020 PERFORMING PHYSICIAN: Tim Benson MD PROCEDURE PERFORMED: Successful stenting of the mid left anterior descending artery through NELSON using 2.0 x 15 mm Holden drug-eluting stent with an excellent angiographic results and reduction of stenosis from 90% to 0%. INDICATION: This is a 80-year-old female patient with coronary artery disease and prior coronary artery bypass grafting who was admitted to the hospital recently with chest discomfort and underwent a heart catheterization by Dr. Cox, where she was found to have critical disease involving the distal anastomosis of NELSON to LAD. Also she was found to have patent graft to the left circumflex and intermediate to severe lesion involving the RCA. APPROACH: Right common femoral artery. COMPLICATION: None. LEVEL OF SEDATION: Moderate with sedation length of 27 minutes. PROCEDURE DESCRIPTION: Please refer to diagnostic heart catheterization was performed by Dr. Cox earlier today. Anticoagulation was initiated using heparin with continuous ACT monitoring throughout the procedure. I did engage the NELSON to LAD using an IM guiding catheter, which was 90 cm. I did wire the NELSON and then the LAD using a Whisper wire. I did PTCA ballooning using 2.0 x 12 mm pulse full balloon before I deployed 2.0 x 15 mm Holden drug-eluting stent, where the stent was positioned under fluoroscopy guidance and deployed under 20 atmospheres for 20 seconds with the following angiogram showing excellent angiographic results and the procedure was completed without any complication. POSTPROCEDURE MANAGEMENT: 1. Dual anti-platelet therapy. 2. Aggressive cholesterol control. 3. Risk factor modifications and follow up with the patient. MMODL / IJN: [id number] /
[2020-10-03] MEDS ORDERED: ATROPINE SULFATE 0.1 MG/ML 10ML SYRINGE ONE (19:27)
[2020-10-03 19:58] LABS: Glucose,Whole Blood 214 mg/dL (75-99)
[2020-10-03] MEDS: IPRATROPIUM-ALBUTEROL 3 ML NEB INHALATION SCH (20:10)
[2020-10-03] MEDS: INSULIN ASPART (NovoLOG) 100 UNIT/ML VIAL SQ SCH (20:20)
[2020-10-03] MEDS ORDERED: ATORVASTATIN 40 MG TAB PO SCH (21:00)
[2020-10-03] MEDS: methylPREDNISolone SOD SUCCI 40 MG/ML 1 ML VIAL IV SCH (23:09)
--- NOTE | 2020-10-04 02:41 | HP ---
HISTORY AND PHYSICAL HISTORY: 80-year-old white female was admitted with positive tight lesion LAD to the PAXINOS with a drug-eluting stent, reduction from 90% to 0%. No chest pain or shortness of breath. No lightheadedness, syncope. Shortness of breath is improved. MEDICATIONS: Aspirin 81 mg daily, Norvasc 10 mg daily, ( )500 mg IV daily, Rocephin 1 gram IV daily, Lasix 20 mg p.o. daily, DuoNeb q.i.d., levothyroxine 200 mcg daily, losartan 100 mg daily, metoprolol succinate 50 mg daily, Solu-Medrol 40 IV q.8 Brilinta 90 mg p.o. b.i.d. REVIEW OF SYSTEMS: 14-point review of systems negative. PHYSICAL EXAM: Vital signs stable, afebrile. CARDIOVASCULAR: S1, S2. LUNGS: Clear. GI: Soft. HEMATOLOGY: Negative Homans. PSYCH: Fair mood and affect. NEUROLOGIC: Alert and oriented x3. ABDOMEN: Soft, nontender OPHTHALMOLOGIC: Pupils equal, round, reactive to light and accommodation. ASSESSMENT: 1. Status post PTCA of the LAD for non STEMI. 2. Hypertension. 3. COPD. 4. Aspiration pneumonia. 5. GERD. Prognosis is guarded. Continue current treatment. Increase atorvastatin to 80 mg daily, metoprolol succinate 50 mg daily, Cozaar 100 mg daily, DuoNeb q.i.d., Synthroid 200 mcg daily. Cardiac risk factor modification. Watch in the hospital 24 hours status post stent. MMODL / IJN: [id number] /
[2020-10-04 03:50] VITALS: RESP 18
[2020-10-04 05:55] LABS: Glucose,Whole Blood 224 mg/dL (75-99)
[2020-10-04] MEDS: INSULIN ASPART (NovoLOG) 100 UNIT/ML VIAL SQ SCH ×3 (06:16→14:38)
[2020-10-04] MEDS ORDERED: LEVOTHYROXINE 100 MCG TAB PO SCH (06:30)
[2020-10-04] MEDS: IPRATROPIUM-ALBUTEROL 3 ML NEB INHALATION SCH ×3 (07:56→19:50)
[2020-10-04 08:40] LABS: Basophils # (A) 0.1 k/uL (0-0.2); Basophils % (A) 1 %; Eosinophils # (A) 0.1 k/uL (0-0.7); Eosinophils % (A) 1 %; HCT 41.1 % (34.0-46.0); HGB 14.6 gm/dL (11.4-16.0); Lymphocytes # (A) 0.6 k/uL (1.0-4.8); Lymphocytes % (A) 6 %; MCH 30.2 pg (25.0-35.0); MCHC 35.6 g/dL (31.0-37.0); Mean Platelet Volume 7.2; Monocytes # (A) 0.5 k/uL (0-1.0); Monocytes % (A) 5 %; Neutrophils % (A) 88 %; Platelet Count 271 k/uL (150-450); RBC 4.83 m/uL (3.80-5.40); RDW 12.3 % (11.5-15.5); WBC 10.2 k/uL (3.8-10.6)
[2020-10-04 08:41] LABS: African American GFR (CKD) >90 (>60 ml/min/1.73 sqM); Anion Gap 7 mmol/L; Blood Urea Nitrogen 24 mg/dL (7-17); Calcium 9.4 mg/dL (8.4-10.2); Carbon Dioxide 22 mmol/L (22-30); Chloride 109 mmol/L (98-107); Glucose 211 mg/dL (74-99); Non-African American GFR(CKD) 88 (>60 ml/min/1.73 sqM); Sodium 138 mmol/L (137-145)
[2020-10-04 08:45] LABS: Potassium 4.1 mmol/L (3.5-5.1)
[2020-10-04] MEDS ORDERED: ASPIRIN 81 MG PO SCH (09:00)
[2020-10-04] MEDS ORDERED: AZITHROMYCIN 500 MG in SODIUM CHLORIDE 0.9% 250 ML IVPB SCH (09:00)
[2020-10-04] MEDS ORDERED: METOPROLOL TARTRATE 50 MG TAB PO SCH (09:00)
[2020-10-04] MEDS ORDERED: FUROSEMIDE 20 MG TAB PO SCH (09:00)
[2020-10-04] MEDS ORDERED: amLODIPine 10 MG TAB PO SCH (09:00)
[2020-10-04] MEDS ORDERED: METOPROLOL SUCCINATE (ER) 50 MG TAB.ER.24H PO SCH (09:00)
[2020-10-04] MEDS ORDERED: TICAGRELOR 90 MG TAB PO SCH (09:00)
[2020-10-04] MEDS: LOSARTAN 50 MG TAB PO SCH (09:03)
[2020-10-04] MEDS: methylPREDNISolone SOD SUCCI 40 MG/ML 1 ML VIAL IV SCH ×2 (09:03→14:37)
[2020-10-04 11:58] VITALS: TEMP 98.4
[2020-10-04 12:00] VITALS: BP 107/53; PULSE 59
[2020-10-04] MEDS ORDERED: ATORVASTATIN 80 MG TAB PO SCH (21:00)
== END 2020-10-04 17:50 | disposition home or self-care (01) | DRG 246 ==
LOC: 3SCARD 11:25
PROVIDERS: ADMIT Family Medicine; ATTEND Family Medicine
PROC: 027034Z Dilation of Coronary Artery, One Artery with Drug-eluting Intraluminal Device, Percutaneous Approach (ICD-10-PCS; principal; 2020-10-03 15:10)
DX: I21.4 Non-ST elevation (NSTEMI) myocardial infarction (principal); J69.0 Pneumonitis due to inhalation of food and vomit; I25.810 Atherosclerosis of coronary artery bypass graft(s) without angina pectoris; I10 Essential (primary) hypertension; J44.9 Chronic obstructive pulmonary disease, unspecified; K21.9 Gastro-esophageal reflux disease without esophagitis; Z79.890 Hormone replacement therapy; Z79.899 Other long term (current) drug therapy; I25.10 Atherosclerotic heart disease of native coronary artery without angina pectoris; Z95.1 Presence of aortocoronary bypass graft
CPT/HCPCS: 80048; 85025

== ENCOUNTER → 2020-11-09 | Outpatient (CLI) | payer OTHER ==
--- NOTE | 2020-11-09 12:39 | US ---
EXAMINATION TYPE: US thyroid st tissue head/neck DATE OF EXAM: 11/09/2020 COMPARISON: NONE CLINICAL HISTORY: E04.9 Nontoxic goiter, unspecified. Patient has been taking synthroid for 25+ year s. GLAND SIZE: Right Lobe: 1.4 x 0.5 x 1.0 cm Overall Parenchyma: heterogenous Left Lobe: 2.1 x 0.4 x 0.5 cm Overall Parenchyma: heterogeneous Isthmus Thickness: 0.2 cm NODULES RIGHT: # of nodules measured on right: 0 LEFT: # of nodules measured on left: 0 ISTHMUS: # of nodules measured in the isthmus: 0 Bilateral neck scanned, no evidence of lymphadenopathy. IMPRESSION: Diminutive thyroid lobes. Otherwise unremarkable study. 2017 ACR TI-RADS LEVEL: *Highest TI-RADS level nodule reported
== END | disposition home or self-care (01) ==
LOC: RADUSWWP 12:12
PROVIDERS: ATTEND Family Medicine
DX: E04.1 Nontoxic single thyroid nodule (principal)
CPT/HCPCS: 76536

== ENCOUNTER → 2024-06-22 | Day surgery (SDC) | payer MEDICARE, OTHER ==
[2024-06-22] MEDS: SODIUM CHLORIDE 0.9% 1,000 ML IV SCH (15:21)
[2024-06-22 15:24] VITALS: BP 237/103; PULSE 73; RESP 16; TEMP 97.5
[2024-06-22] MEDS: IV FLUID CONTINUATION 1,000 ML IV ONE (15:25)
[2024-06-22] MEDS: SODIUM CHLORIDE 0.9% 500 ML 500 ML IV ONE (15:25)
[2024-06-22] MEDS: LIDOCAINE 1% INJ 10MG/ML (20 ML MDV) SQ ONE (15:59)
--- NOTE | 2024-06-22 16:23 | P.EPPROC ---
- EP Procedure Note Electrophysiology Procedure Note: Loop monitor implant under local anesthesia, Yu[place], Assert-IQ 3+ Primary physicians: Boat Ride Operator: Dr. Hunter Indication: Suspected PAF, sick sinus syndrome IVCD Patient was brought to the EP lab in a fasting state. Written informed consent was obtained prior to the procedure. The left pectoral area was prepped and draped per protocol. Intravenous antibiotic was administered preoperatively. A subcutaneous Loop monitor was implanted successfully and the wound was closed per protocol. The device was programmed to detect significant darrin- arrhythmic and tachy-arrhythmic events, per protocol. Device and programming details: Suspected PAF protocol and bradycardia protocol
== END | disposition home or self-care (01) ==
LOC: CATHEP 14:42
PROVIDERS: ATTEND Internal Medicine Clinical Cardiac Electrophysiology
DX: R55 Syncope and collapse (principal); I49.5 Sick sinus syndrome; I47.19 Other supraventricular tachycardia; I45.89 Other specified conduction disorders; I10 Essential (primary) hypertension; I25.10 Atherosclerotic heart disease of native coronary artery without angina pectoris; Z95.1 Presence of aortocoronary bypass graft; E78.5 Hyperlipidemia, unspecified; Z79.82 Long term (current) use of aspirin; Z79.890 Hormone replacement therapy; Z79.899 Other long term (current) drug therapy; Z88.1 Allergy status to other antibiotic agents; Z88.5 Allergy status to narcotic agent; Z88.2 Allergy status to sulfonamides
CPT/HCPCS: 33285; C1764; J0690; J2003